=== PATIENT | male | born 1970 | race African-American/Black ===

== ENCOUNTER 2017-04-26 20:31 | Observation (INO) | payer MEDICARE, MEDICAID ==
[2017-04-26 21:29] LABS: Hematocrit 37.6 % (42.0-52.0); Mean Platelet Volume 7.2 fL (7.4-10.4); Red Blood Cell (RBC) Count 3.98 mill/uL (4.70-6.10); White Blood Cell (WBC) Count 6.3 thou/uL (4.8-10.8)
[2017-04-26 21:38] LABS: ALT (SGPT) 17 U/L (8-55); AST (SGOT) 12 U/L (5-34); Alkaline Phosphatase 71 U/L (40-150); Anion Gap 15 mmol/L (10-20); BUN (Urea Nitrogen) 56 mg/dL (8.9-20.6); Bilirubin, Total 0.4 mg/dL (0.2-1.2); Calc. Creatinine Clearance 0 mL/min (70-130); Calcium 9.5 mg/dL (7.8-10.44); Carbon Dioxide 25 mmol/L (22-29); Chloride 106 mmol/L (98-107); Estimated GFR-MDRD 14; Globulin 3.8 g/dL (2.4-3.5); Protein, Total 7.5 g/dL (6.0-8.3)
[2017-04-26 21:42] LABS: Lactic Acid - Sepsis 1.6 mmol/L (0.5-2.2)
[2017-04-26 21:42] LABS: #Eosinphils 0.2 thou/uL (0.0-0.7); #Lymphocytes 1.4 thou/uL (1.20-3.40); #Monocytes 0.5 thou/uL (0.11-0.59); #Neutrophils 4.1 thou/uL (1.40-6.50); %Basophils 0.5 % (0.0-1.0); %Eosinophils 3.9 % (0.0-10.0); %Lymphocytes 22.2 % (21.0-51.0); %Monocytes 7.8 % (0.0-10.0)
[2017-04-26 21:48] LABS: Magnesium 1.7 mg/dL (1.6-2.6)
[2017-04-26] MEDS ORDERED: Ondansetron HCl/PF 4 MG/2 ML Vial ONE (21:53)
--- NOTE | 2017-04-26 22:49 | RAD ---
PORTABLE UPRIGHT FRONTAL CHEST RADIOGRAPH: Date: 04/26/17 COMPARISON: 08/20/16. HISTORY: Nausea and vomiting, chest pain. FINDINGS: Cardiac silhouette is enlarged. Right-sided dialysis catheter present, distal tip overlying region of right atrium. There is mild vascular congestion. No pneumothorax, pleural fluid, focal consolidation , or alveolar edema. IMPRESSION: No focal consolidation or alveolar edema. POS: [facility]
[2017-04-27 00:04] LABS: Bilirubin Negative (Negative); Blood, Urine Trace (Negative); Glucose, Urine (Dipstick) 100 mg/dL (Negative); Ketone, Urine Negative (Negative); Nitrite Negative (Negative); Protein, Urine (Dipstick) 100 mg/dL (Neg-Trace); Urobilinogen 0.2 mg/dL (0.2-1.0)
[2017-04-27 00:06] LABS: Bacteria/HPF None Seen HPF (None Seen); Hyaline Casts/LPF 0-3 HYALINE CAST LPF (0-3 Hyaline); RBC/HPF 0-3 HPF (0-3); Squamous Epithelial None Seen HPF (0-3); WBC/HPF 0-3 HPF (0-3)
[2017-04-27] MEDS ORDERED: Ondansetron ODT 4 MG TAB PO PRN (01:23)
[2017-04-27] MEDS ORDERED: Polyethylene Glycol 3350 17 GM Packet PO PRN (01:23)
[2017-04-27] MEDS ORDERED: Dextrose 5% in Water 1,000 ML IV PRN ×2 (02:07→04:41)
[2017-04-27] MEDS ORDERED: Dextrose 50% Abboject 50 ML SYRINGE SLOW IVP PRN ×2 (02:07→04:41)
[2017-04-27] MEDS ORDERED: HumaLOG 300 UNITS/3 ML VIAL SC PRN (02:07)
[2017-04-27] MEDS ORDERED: Senokot 8.6 MG TAB PO PRN (02:07)
[2017-04-27 02:16] VITALS: BMI 55.5
[2017-04-27] MEDS: hydrALAZINE 20 MG/ML VIAL SLOW IVP PRN ×2 (03:12→11:56)
[2017-04-27 04:12] LABS: Anion Gap 15 mmol/L (10-20); BUN (Urea Nitrogen) 54 mg/dL (8.9-20.6); Calc. Creatinine Clearance 38 mL/min (70-130); Calcium 9.2 mg/dL (7.8-10.44); Carbon Dioxide 22 mmol/L (22-29); Chloride 110 mmol/L (98-107); Estimated GFR-MDRD 14
[2017-04-27 04:52] LABS: Troponin I 0.024 ng/mL (< 0.028)
[2017-04-27 06:20] LABS: #Basophils 0.1 thou/uL (0.0-0.2); #Eosinphils 0.2 thou/uL (0.0-0.7); #Monocytes 0.6 thou/uL (0.11-0.59); #Neutrophils 4.2 thou/uL (1.40-6.50); %Basophils 0.7 % (0.0-1.0); %Eosinophils 2.8 % (0.0-10.0); %Lymphocytes 28.3 % (21.0-51.0); %Monocytes 8.8 % (0.0-10.0); Hematocrit 36.8 % (42.0-52.0); Mean Platelet Volume 7.2 fL (7.4-10.4); Red Blood Cell (RBC) Count 3.85 mill/uL (4.70-6.10); White Blood Cell (WBC) Count 7.1 thou/uL (4.8-10.8)
--- NOTE | 2017-04-27 07:42 | HP-2 ---
DATE OF ADMISSION: 04/27/2017 at midnight CODE STATUS: FULL. PRIMARY CARE PROVIDER: Anam engel. ATTENDING: Dr. Mccann. RESIDENT: Dr. Ainsley Russell. HISTORIAN: Patient. CHIEF COMPLAINT: Nausea and vomiting. HISTORY OF PRESENT ILLNESS: This is a 46-year-old male with a past medical history of diabetes and end-stage renal disease, on hemodialysis Thursday and Thursday, presents with nausea and vomiting today after missing hemodialysis yesterday, and he states he vomited 5-6 times a day. The last time he vomited was at 7:00 p.m. last night. He also endorses some dizziness and some left lower quadrant abdominal pain. Patient states that he was living at a retirement, but recently, a week ago from Thursday, was discharged from the retirement. He states that he usually takes the bus to get his dialysis, but he had trouble getting his larger wheelchair to fit into the bus, and by the time he went and got a smaller one, he missed the bus. He denies chest pain and once again endorses some left lower quadrant abdominal pain. PAST MEDICAL HISTORY: Type 2 diabetes, on insulin; hypertension; hyperlipidemia ; end-stage renal disease, on hemodialysis Tuesdays and Saturdays. Patient's research hydrologist is Dr. Dhillon. PAST SURGICAL HISTORY: Bilateral BKA. ALLERGIES: No known drug allergies. MEDICATIONS: 1. He is on 35 units of Levemir at night. 2. Lipitor 40 mg at bedtime. FAMILY HISTORY: No family history of early MD. SOCIAL HISTORY: Denies tobacco, alcohol, and drug use. REVIEW OF SYSTEMS: General: Denies fevers, chills, weight, appetite, sleep changes. EYES and ENT: Denies vision changes, nasal congestion, rhinorrhea, sore throat. Respiratory: Denies cough, congestion, shortness of breath. Cardiovascular: Denies chest pain, palpitations, or edema. GI: Endorses nausea and vomiting x5. Denies diarrhea or constipation. Endorses left lower quadrant pain. SKIN: Denies rashes or lesions. Musculoskeletal: Denies pain or tenderness. Neurologic: Denies weakness or numbness. Psychiatric: Denies anxiety or depression. PHYSICAL EXAMINATION: VITAL SIGNS: Blood pressure 166/90, pulse 77, respiratory rate 16, T-max 97.7, pulse ox 97% on room air, current weight 142 kilograms. GENERAL: Alert and oriented x4, NAD, well-developed, well-nourished, obese, appropriately interactive. EYES: PERRLA. EOMI. Conjunctivae within normal limits. ENT: Nasal mucosa and oropharynx within normal limits. NECK: Supple. No lymphadenopathy or thyromegaly. CARDIOVASCULAR: Regular rate and rhythm. No murmurs, rubs, or gallops. A 2+ radial pulses. RESPIRATORY: Normal effort. No retractions. Clear to auscultation bilaterally. SKIN: Warm and dry. No cyanosis. ABDOMEN: Soft. Tender to palpation in left lower quadrant. Positive bowel sounds in all 4 quadrants. No masses or distention. EXTREMITIES: No clubbing or edema. MUSCULOSKELETAL: Bilateral lower extremity BKA. Decreased strength in lower body and upper body. NEUROLOGICAL: No focal deficits. Sensation within normal limits. GCS 15. PSYCHIATRIC: Appropriate. LABORATORY DATA: CBC: White count 6.3, hemoglobin 11.8, hematocrit 37.6, platelets 219. CMP: Sodium 142, potassium 4.2, chloride 106, bicarbonate 25, BUN 56, creatinine 5.3, glucose 196. AST, ALT, alkaline phosphatase 12, 17, 71. Calcium, total protein, albumin 9.5, 7.5, 3.7. Total bilirubin 0.4. Magnesium 0.7. Lactic acid 1.6. GFR 14. Troponin 0.020, 0.024, 0.030. EKG, normal sinus rhythm, LAD, unchanged from prior. ASSESSMENT AND PLAN: This is a 46-year-old male with a past medical history of diabetes, type 2, and end-stage renal disease, on hemodialysis Thursday and Thursday, presents with nausea and vomiting x5 since this morning and missed dialysis yesterday, admitted for abdominal pain with a concern for atypical chest pain versus gastroenteritis. 1. Atypical chest pain. The patient is diabetic and this may be an atypical presentation of chest pain. The patient denies classic chest pain-like symptoms , but does endorse abdominal pain. The patient's troponins have been negative and his EKG has been normal sinus rhythm with some left axis deviation. Due to his risk factors, we will place an order for a pharmacological stress test in the morning. We will also trend the patient's troponins. We will repeat an EKG if patient's chest pain returns and consult Cardiology if patient has chest pain, positive troponins, and EKG changes. Cannot rule out gastroenteritis, as this presented quite acutely with nausea and 5 episodes of vomiting, which could be due to a viral gastroenteritis. Also, with this patient's left lower quadrant pain, he stated that he has had a bowel movement in over a day. This could be constipation and we will provide the patient with a bowel regimen and order a KUB. 2. End-stage renal disease, on hemodialysis Thursday and Thursday. We will consult Dr. Dhillon. The patient does not meet criteria at this time for emergent dialysis. We will continue to monitor his BMP for acute changes. DISPOSITION AND LENGTH OF HOSPITAL STAY: 1-2 days. Symptomatic medications will be provided. History and physical exam as well as management discussed with Dr. Mccann. HERLINDA
[2017-04-27] MEDS ORDERED: Aspirin 325 mg Enteric Coated Tablet PO SCH (09:00)
[2017-04-27] MEDS ORDERED: Atorvastatin Calcium 40 MG TAB PO SCH (09:00)
[2017-04-27] MEDS ORDERED: Cyanocobalamin (Vitamin B-12) 1,000 MCG TAB PO SCH (09:00)
[2017-04-27] MEDS ORDERED: Docusate 100 MG CAP PO SCH (09:00)
[2017-04-27] MEDS ORDERED: Enoxaparin Sodium 30 MG/0.3 ML SYRINGE SC SCH (09:00)
--- NOTE | 2017-04-27 10:57 | HP ---
I have reviewed the history and physical of Dr. Ainsley Russell and agree with her assessment and plan. BRIEF HISTORY: Briefly, Mr. Josias Martinez is a 46-year-old black male patient who is on dialysis ever y Thursday and Thursday. He missed dialysis this Thursday and just prior to coming into the ER he dev eloped some nausea, vomiting, and dizziness. He was admitted for further evaluation. PHYSICAL EXAMINATION: VITAL SIGNS: Her blood pressure was 160/90, his pulse rate was 78, respirations 18. He is afebrile. His pulse ox on room air was 97%. GENERAL: He is a pleasant man in no distress. He states he becomes quite dizzy and vertiginous when turning his head to the left side. He has no focal neurological deficits. HEENT: His head is normocephalic with no outward signs of trauma. NECK: Supple. CARDIAC: PMI is in the fifth intercostal space. No gallop or murmur noted. LUNGS: Clear, without rales or wheezes. ABDOMEN: Obese, but flat and soft. NEUROLOGIC: No focal deficits. LABORATORY DATA: CBC: White count 6300, hemoglobin 11.8, hematocrit 37.6. BMP: Sodium is 142, pot assium 4.2, chloride is 106, bicarbonate is 25, BUN is 56, creatinine is 5.3. ASSESSMENT: Probable acute gastritis and mild vertigo. PLAN: Admit. Discuss with Dr. Dhillon whether we need to send the patient for dialysis. Given his sym ptoms of nausea consider stress test, although I doubt this was acute coronary syndrome.
[2017-04-27 11:54] VITALS: BP 184/86; TEMP 98.1
[2017-04-27] MEDS ORDERED: Meclizine HCl 25 MG TAB PO SCH ×2 (14:00)
[2017-04-27] MEDS ORDERED: Metoclopramide HCl 10 MG/2 ML VIAL IVP SCH (14:00)
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
[2017-04-27] MEDS ORDERED: Insulin Detemir 100 UNITS/ML 35 UNITS in Pre-Filled Syringe 1 EACH SC SCH (21:00)
[2017-04-27] MEDS ORDERED: INSULIN GLARGINE 35 UNIT SC SCH (21:00)
--- NOTE | 2017-04-27 22:56 | CON ---
DATE OF CONSULTATION: 04/27/2017 CONSULTING PHYSICIAN: Tim Mccann MD REASON FOR CONSULTATION: End-stage renal disease evaluation and care. REASON FOR ADMISSION: Nausea and vomiting. HISTORY OF PRESENT ILLNESS: A 46-year-old male with history of type 2 diabetes, end-stage re nal disease, hypertension, who came to the hospital with nausea, vomiting, and dizziness. The patien t missed dialysis on Thursday and usually, he gets dialysis on a regular basis. No fevers, chills. No chest pain or palpitation reported. PAST MEDICAL HISTORY: Positive for type 2 diabetes, hypertension, hyperlipidemia, end-stage renal di sease. PAST SURGICAL HISTORY: Bilateral BKA. ALLERGIES: No known drug allergies. HOME MEDICATIONS: Levemir and Lipitor. FAMILY HISTORY: No history of any kidney disease. REVIEW OF SYSTEMS: The following complete review of systems was negative, unless otherwise mentioned in the HPI or below: Constitutional: Weight loss or gain, ability to conduct usual activities. Skin: Rash, itching. Eyes: Double vision, pain. ENT/Mouth: Nose bleeding, neck stiffness, pain, tenderness. Cardiovascular: Palpitations, dyspnea on exertion, orthopnea. Respiratory: Shortness of breath, wheezing, cough, hemoptysis, fever, or night sweats. Gastrointestinal: Poor appetite, abdominal pain, heartburn, nausea, vomiting, constipation, or diarr hea. Genitourinary: Urgency, frequency, dysuria, nocturia. Musculoskeletal: Pain, swelling. Neurologic/Psychiatric: Anxiety, depression. Allergy/Immunologic: Skin rash, bleeding tendency. SOCIAL HISTORY: No smoking, alcohol, or illicit drug abuse. PHYSICAL EXAMINATION: GENERAL: This is a morbidly obese male, in no apparent distress. VITAL SIGNS: Temperature 98.1, pulse 85, respiratory rate 18, blood pressure 184/86. HEENT: Atraumatic, normocephalic. Oral mucosa is moist. NECK: Supple, no masses. CARDIOVASCULAR: S1, S2 heard. Rate and rhythm regular. RESPIRATORY: Clear. GASTROINTESTINAL: Abdomen is soft. MUSCULOSKELETAL: 1+ edema. DERMATOLOGIC: No skin rash. NEUROLOGIC: Alert and awake. PSYCHIATRIC: Mood and affect are normal. LABORATORY DATA: Hemoglobin is 11.7. Potassium is 4.4, BUN is 54, creatinine is 5.1. ASSESSMENT AND PLAN: 1. End-stage renal disease, on hemodialysis. Plan is to have dialysis as tolerated. 2. Hypertension, stable. 3. Anemia. Hemoglobin is stable. 4. Edema, controlled. 5. Plan is to continue on dialysis as tolerated. 7. Morbid obesity.
--- NOTE | 2017-04-28 13:19 | DIS-2 ---
DATE OF ADMISSION: 04/27/2017 DATE OF DISCHARGE: 04/27/2017 RESIDENT: Dr. Ruiz. ADMITTING AND ATTENDING PHYSICIAN: Dr. West. DISCHARGE ATTENDING: Dr. Mccann. CONSULTATIONS: With Dr. Wilson in Nephrology. PROCEDURES PERFORMED: He did undergo a chest x-ray that showed no focal consolidation or alveolar edema. He also had an abdominal x-ray that showed no evidence for small-bowel obstruction. Significant stool was seen throughout the colon. PRIMARY DISCHARGE DIAGNOSES: 1. Vertigo. 2. End-stage renal disease, on hemodialysis. 3. Diabetes mellitus type 2. DISCHARGE MEDICATIONS: 1. Atorvastatin 40 mg p.o. daily. 2. Insulin glargine 35 units subcu at bedtime. 3. Meclizine 25 mg. 4. Zofran 4 mg. DISCONTINUED MEDICATIONS: None. HISTORY OF PRESENT ILLNESS AND HOSPITAL COURSE: This is a 46-year-old male with past medical history of diabetes and end-stage renal disease, on hemodialysis Tuesdays and Saturdays, presents with nausea and vomiting today after missing hemodialysis yesterday. He states he vomited 5-6 times today. The last time he vomited was at 7:00 p.m. last night. He also endorses some dizziness and some left lower quadrant abdominal pain. The patient states he was living at a long-term, but recently a week ago on Thursday, he was discharged from the long-term. He states he finally takes the bus to get to his dialysis, but he had trouble getting his larger wheelchair fit on the bus and by that time, he went and got a smaller one, he missed the bus. He denies chest pain and once again endorses some left lower quadrant abdominal pain. During the hospitalization, Dr. Wilson with Nephrology saw the patient and felt like he would benefit from some early dialysis since he missed his dialysis session on Thursday and so he signed him up for a shortened dialysis session while in the hospital. The patient was also nauseous and vomited during hospitalization. He was given meclizine with improvement of his symptoms and he was given Zofran as needed to prevent any further nausea. The patient has a significant lab values of hepatitis B surface antigen negative. He had a creatinine of 5.19, BUN of 54 and a glucose of 154. A white blood cell count of 7.18, hemoglobin of 11.7 and hematocrit of 36.8, all within stable ranges for him. The patient otherwise had improvement of his symptoms throughout this hospital stay with meclizine and was discharged home so that he can make his dialysis session on Thursday. The patient otherwise had no other complications and was discharged in the appropriate condition. DISCHARGE DISPOSITION: Stable. DISCHARGE INSTRUCTIONS: 1. Location: He will be discharged home under the care of himself and his stepdaughter. 2. Diet: Will be a diabetic diet and a renal diet. 3. Activity: Will be as tolerated with no restrictions. He is status post BKA bilaterally, so mobility is a problem for him. 4. FOLLOWUP: Will be with Dr. Wilson in the coming weeks to follow up with his dialysis sessions and also a [facility] physician in 3 days who is hoping he is hoping to establish care with wish him the best of luck and hope that we can continue him on a healthy course going forward. HERLINDA
== END 2017-04-27 20:58 | disposition home or self-care (01) ==
LOC: ERS 20:31 → 2NO 23:49
PROVIDERS: ADMIT Family Medicine; ATTEND Family Medicine
DX: R42 Dizziness and giddiness (principal); I12.0 Hypertensive chronic kidney disease with stage 5 chronic kidney disease or end stage renal disease; E11.22 Type 2 diabetes mellitus with diabetic chronic kidney disease; N18.6 End stage renal disease; R07.89 Other chest pain; E78.00 Pure hypercholesterolemia, unspecified; Z99.2 Dependence on renal dialysis; Z89.512 Acquired absence of left leg below knee; Z89.511 Acquired absence of right leg below knee; Z79.4 Long term (current) use of insulin; Z79.899 Other long term (current) drug therapy
CPT/HCPCS: 71010; 74000; 80048; 80053; 82553; 82947; 82962 ×2; 83605; 83690; 83735; 84484 ×3; 85025 ×2; 87340; 93005; 94760; 96361; 96372; 96374; 96375; 96376; 99285; G0378; 36415; 36416; 81003; 81015; 90935; G0257; J0360; J1650; J1815; J2405; J2765; Q0162

== ENCOUNTER 2017-06-19 07:37 | Day surgery (SDC) | payer MEDICARE, MEDICAID ==
--- NOTE | 2017-06-15 06:18 | HP ---
HISTORY OF PRESENT ILLNESS: Josias Martinez is a 46-year-old black male mobile with a wheelchair, kunal nassarl below knee amputee has acquired prosthesis and is working with therapy at home to again mobility and use of his prosthesis. He is nonweightbearing. He is morbidly obese. He dialyzes at [facility] two days a week, Thursday and Thursday. On Thursday, he attends dialysis at 1 or 2 p.m. and on Thursday attends dialysis earlier in the day. Attending dialysis later in the day Thursday is difficul t for him as his transportation is by a bus. The patient has a friend with him today, is followed by Dr. Hernandez. The patient had a left Martina fistula placed on 08/30/2016, at that time is at [facility], but currently resides at home. I saw him back in the office on 12/08/2016 to remove h is dialysis catheter. Apparently, his Martina fistula left arm thrombosed and on 04/01/2017, the carlos ent was seen at [facility] and underwent attempted fistulogram, but his Martina fistula form was th rombosed and intervention could not be performed. Apparently, a dialysis catheter right IJ was place d in. The patient last had vein mapping on 02/2016 on his cephalic vein, right 2.3, 2.4, 3.2 mm in d istal humerus 5.8 mm, proximal forearm 1.2 mm, basilic vein was smaller on the right, 1.6, 1.2, 1.1, 1.3 mm, proximal forearm 1.7 mm. On the left at that time cephalic vein, left arm 2.6, 2.5, 4.5 mm a nd distal humerus 5.9, proximal forearm 1.6, left basilic vein slightly better, 2.6, 2.8, 1.8, 1.6 mm . Apparently, the patient was admitted 05/06/2017 for nausea and vomiting because he missed dialysis . He was dialyzed and sent home. Today, it is verified his left forearm the left Martina fistula is thrombosed and plan would be that u nder general anesthesia, he would have a left to right arm primary fistula. Would avoid a block due to his mobility problems and being a bilateral amputee. Therefore, we would avoid regional anesthesi a. Patient has suitable cephalic veins on both arms by 2016 vein mapping, basilic vein is smaller on the right. PAST MEDICAL HISTORY: Type 2 diabetes mellitus, hypertension, hyperlipidemia, end-stage renal diseas e on maintenance dialysis, morbid obesity, and bilateral amputee. PAST SURGICAL HISTORY: Bilateral amputee bilateral amputation and left Martina fistula. ALLERGIES: None. MEDICATIONS: Levemir and Lipitor. REVIEW OF SYSTEMS: Ten point noncontributory. PHYSICAL EXAMINATION: GENERAL: Bilateral amputee. VITAL SIGNS: 66 inches, 107/59, 100, 98.6 degrees. HEENT: Unremarkable. LUNGS: Clear to auscultation. CARDIAC: Regular rate and rhythm without murmur or gallop. ABDOMEN: Obese, soft, nontender. EXTREMITIES: Bilateral below-knee amputation, palpable radial pulses bilaterally, thrombosed Martina fistula forearm. ASSESSMENT AND PLAN: 1. Thrombosed fistula, Martina left forearm. Plan left to right arm primary fistula under general an esthesia. He understands the risks and benefits of procedure and consents. 2. Bilateral amputee. 3. Insulin-dependent diabetes mellitus. 4. Hypertension.
[2017-06-19] MEDS ORDERED: CEFAZOLIN/Water 2 GM/20 ML SYRINGE ONE (08:33)
[2017-06-19 08:53] LABS: #Eosinphils 0.1 thou/uL (0.0-0.7); #Lymphocytes 1.3 thou/uL (1.20-3.40); #Monocytes 0.6 thou/uL (0.11-0.59); #Neutrophils 4.9 thou/uL (1.40-6.50); %Basophils 0.3 % (0.0-1.0); %Eosinophils 1.5 % (0.0-10.0); %Lymphocytes 19.2 % (21.0-51.0); %Monocytes 9.2 % (0.0-10.0); %Neutrophils 69.8 % (42.0-75.0); Hemoglobin 8.3 g/dL (14.0-18.0); Mean Corpuscular HGB CONC 30.5 g/dL (32.0-36.0); Mean Corpuscular Hemoglobin 26.8 pg (27.0-31.0); Mean Corpuscular Volume 87.7 fl (80.0-94.0); Mean Platelet Volume 7.3 fL (7.4-10.4); Platelet Count 302 thou/uL (130-400); RBC Distribution Width 16.6 % (11.5-14.5); Red Blood Cell (RBC) Count 3.09 mill/uL (4.70-6.10)
[2017-06-19 08:58] LABS: Anion Gap 16 mmol/L (10-20); BUN (Urea Nitrogen) 43 mg/dL (8.9-20.6); Calc. Creatinine Clearance 32 mL/min (70-130); Calcium 8.4 mg/dL (7.8-10.44); Carbon Dioxide 27 mmol/L (22-29); Chloride 98 mmol/L (98-107); Estimated GFR-MDRD 13; Glucose 134 mg/dL (70-105); Potassium 3.3 mmol/L (3.5-5.1); Sodium 138 mmol/L (136-145)
[2017-06-19] MEDS ORDERED: Phenylephrine 10 MG/NS 250 ML 250 ML ONE (11:31)
[2017-06-19] MEDS ORDERED: Glycopyrrolate 0.2 MG/ML 5 ML SYRINGE ONE (14:00)
[2017-06-19] MEDS ORDERED: Propofol 200 MG/20 ML VIAL ONE (14:00)
[2017-06-19] MEDS ORDERED: PHENYLEPHRINE-NS 100 MCG/ML 10 ML SYRINGE ONE (14:00)
[2017-06-19] MEDS ORDERED: Heparin 10,000 UNITS/ 10 ML VIAL ONE ×2 (14:00→14:46)
[2017-06-19] MEDS ORDERED: Ondansetron HCl/PF 4 MG/2 ML Vial ONE (14:00)
--- NOTE | 2017-06-19 15:24 | OP ---
PREOPERATIVE DIAGNOSES: End-stage renal disease, morbid obesity, below the knee amputation status, t hrombosed Martina fistula left forearm. POSTOPERATIVE DIAGNOSES: End-stage renal disease, morbid obesity, below the knee amputation status, thrombosed Martina fistula left forearm. PROCEDURE: Left arm primary fistula, perforating branch antecubital vein to the proximal radial cassi ry, outflow cephalic vein only (ligated communicating branch to the basilic vein). Retrograde antecu bital vein preserved, although thrombosed after a short segment. Note, cephalic vein outflow calibra willem to a 4.5 mm coronary dilator and both basilic and cephalic vein were of good caliber due to previ ous arterialization from Martina fistula. SURGEON: Dr. Jenaro Delarosa ANESTHESIA: General. Local 0.5% Marcaine, 30 mL, mixed with 1% Xylocaine with epinephrine 30 mL, 40 mL mixture used. PROCEDURE IN DETAIL: The patient was taken to the operating room where under general anesthesia, lef t upper extremity was prepared with ChloraPrep, draped in routine fashion. Proximal volar forearm in cision was made just below the antecubital fossa and carried down through the skin and subcutaneous t issue and retrograde antecubital vein identified, dissected free along with its bifurcation towards t he antecubital fossa into the basilic and cephalic vein. The initial segment of the cephalic vein se emed to be small and the basilic vein larger. Initially, I have started to make an incision for sosa sposition basilic vein fistula, but then appreciated that this may not be necessary as the cephalic v ein beyond this smaller segment was of excellent caliber. At this point, the antecubital vein was di ssected free, perforating branch dissected free. Branches divided between 4-0 silk ties and clips, m obilized, spatulated over a branch point and interrogated with coronary dilators. The patient was gi jose luis 6000 units of heparin intravenously by Anesthesia. Coronary dilators placed from the perforating branch of the antecubital vein out this cephalic vein outflow from a 2 mm to a 4.5 mm coronary dilat or. Likewise, they passed easily in the basilic vein. At this point, the brachial, ulnar, proximal radial artery distally were clamped with vascular clamps. Longitudinal arteriotomy made sharply in t he proximal radial artery and 2.5 cm anastomosis created between the side proximal radial artery to t he perforating branch antecubital vein with continuous suture of 6-0 Prolene. After completing anast omosis, vascular clamps were released and outflow was interrogated with coronary dilators and indeed there was excellent outflow through the cephalic vein, it distended nicely. The communicating branch of basilic vein ligated with 2-0 silk tie. Branches visualized and the distal cephalic vein were cl ipped to prioritize blood flow in the cephalic vein. There was excellent Doppler signal in the cepha lic vein outflow. Good hemostasis noted. The patient was given 25 mg of protamine intravenously by Anesthesia. Local anesthetic infiltrated into skin and subcutaneous tissue. Subcutaneous tissues ap proximated with 3-0 Monocryl, skin with subdermal 4-0 Monocryl and DermaGlue applied. The patient to lerated the procedure well.
== END 2017-06-19 15:27 | disposition home or self-care (01) ==
LOC: SDC 07:37
PROVIDERS: ATTEND Specialist
PROC: 031C0ZF Bypass Left Radial Artery to Lower Arm Vein, Open Approach (ICD-10-PCS; principal; 2017-06-19)
DX: T82.868A Thrombosis due to vascular prosthetic devices, implants and grafts, initial encounter (principal); I12.0 Hypertensive chronic kidney disease with stage 5 chronic kidney disease or end stage renal disease; E11.22 Type 2 diabetes mellitus with diabetic chronic kidney disease; N18.6 End stage renal disease; E78.5 Hyperlipidemia, unspecified; E66.01 Morbid (severe) obesity due to excess calories; Z79.4 Long term (current) use of insulin; Z79.899 Other long term (current) drug therapy; Z89.512 Acquired absence of left leg below knee; Z89.511 Acquired absence of right leg below knee; Z99.2 Dependence on renal dialysis; Z99.3 Dependence on wheelchair; Z98.890 Other specified postprocedural states
CPT/HCPCS: 36416; 80048; 85025; J0131; J1644; J2405; J2704

== ENCOUNTER 2017-06-25 07:47 | Day surgery (SDC) | payer MEDICARE, MEDICAID ==
[2017-06-24 12:51] VITALS: BMI 42.3
[~2017-06-25 07:47] MED LIST: Cyclopentolate 1% Opth Drop 2 ML BOT FS SCH; Fluorouracil 100 MG, EPINEPHrine 0.3 MG, Dextrose 50% 3 ML in Ophthalmic Irrigation Sol... IVPB SCH; Phenylephrine 2.5% Ophth Soln 5 ML BOT FS SCH
[2017-06-25] MEDS ORDERED: Cyclopentolate 1% Opth Drop 2 ML BOT ONE (07:56)
[2017-06-25] MEDS ORDERED: Phenylephrine 2.5% Ophth Soln 5 ML BOT ONE (07:56)
[2017-06-25] MEDS ORDERED: Midazolam HCl 2 mg/2 ml Vial ONE (09:02)
[2017-06-25] MEDS ORDERED: Fentanyl 100 MCG/2 ML VIAL ONE (09:02)
[2017-06-25] MEDS ORDERED: Diprivan 20 ML ONE (09:02)
--- NOTE | 2017-06-25 10:41 | OP ---
DATE OF PROCEDURE: 06/25/2017 PREOPERATIVE DIAGNOSIS: Vitreous opacification, silicone oil fill left eyes. POSTOPERATIVE DIAGNOSIS: Vitreous opacification, silicone oil fill left eyes. PROCEDURE: Silicone oil removal and vitrectomy of left eye. SURGEON: Arnoldo Moralez M.D. ANESTHESIA: Local with monitored anesthesia care. COMPLICATIONS: None. PROCEDURE IN DETAIL: The patient was identified in the preoperative holding area. Appropriate infor med consent for the planned surgical procedure on the left eye had been obtained. The patient was tr ansported to the operative suite where appropriate cardiopulmonary monitoring was established. Local anesthesia was obtained using retrobulbar and modified Van Lint lid block using 50/50 mixture of 4% lidocaine and 0.75% bupivacaine. The patient was prepped and draped in the usual sterile manner for ophthalmic surgery on the left eye. Lid speculum was placed in the left eye. The 25-gauge trocars w ere placed in conjunctiva and sclera supratemporally, inferotemporally, and supranasally. Infusion l ine was placed inferotemporally. Light pipe and vitreous cutter were inserted into the eye. Core of vitrectomy was performed. Silicone oil was removed. Posterior pole was inspected. Retina appeared flat and laser was present in the periphery 360 degrees. Trocars were removed and superior scleroto my was sutured closed. Retrobulbar Kenalog and subconjunctival Ancef were placed. Atropine and anti biotic ointment were placed, and the eye was patched and shielded. The patient was taken to postoper ative recovery unit in good condition having suffered no immediate perioperative complications. DISCHARGE INSTRUCTIONS: Patient was instructed to keep patch and shield on, avoid lifting or bending , and follow up in the morning with Dr. Moralez.
[2017-06-25] MEDS ORDERED: Lidocaine 1% PF 5 ML VIAL ONE (12:05)
[2017-06-25] MEDS ORDERED: Propofol 200 MG/20 ML VIAL ONE (12:05)
== END 2017-06-25 10:35 | disposition home or self-care (01) ==
LOC: SDC 07:47
PROVIDERS: ATTEND Ophthalmology Retina Specialist
PROC: 08T53ZZ Resection of Left Vitreous, Percutaneous Approach (ICD-10-PCS; principal; 2017-06-25)
DX: H43.392 Other vitreous opacities, left eye (principal); T85.398A Other mechanical complication of other ocular prosthetic devices, implants and grafts, initial encounter; E66.01 Morbid (severe) obesity due to excess calories; E11.22 Type 2 diabetes mellitus with diabetic chronic kidney disease; I12.0 Hypertensive chronic kidney disease with stage 5 chronic kidney disease or end stage renal disease; N18.6 End stage renal disease; E78.5 Hyperlipidemia, unspecified; Z68.41 Body mass index [BMI] 40.0-44.9, adult; Z99.2 Dependence on renal dialysis; Z79.4 Long term (current) use of insulin; Z79.899 Other long term (current) drug therapy; Z90.49 Acquired absence of other specified parts of digestive tract; Z89.512 Acquired absence of left leg below knee; Z89.511 Acquired absence of right leg below knee; Z98.890 Other specified postprocedural states
CPT/HCPCS: 36416; J0171; J2250; J2704; J3010; J9190

== ENCOUNTER 2017-07-13 12:04 | Inpatient (IN) | payer MEDICARE, MEDICAID ==
[2017-07-13] MEDS ORDERED: Ondansetron ODT 4 MG TAB ONE (12:18)
[2017-07-13] MEDS ORDERED: Acetaminophen 500 MG TAB ONE (13:14)
[2017-07-13 13:29] LABS: Hemoglobin 9.1 g/dL (14.0-18.0); Mean Corpuscular HGB CONC 30.4 g/dL (32.0-36.0); Mean Corpuscular Hemoglobin 26.3 pg (27.0-31.0); Mean Corpuscular Volume 86.3 fl (80.0-94.0); Platelet Count 143 thou/uL (130-400); RBC Distribution Width 17.9 % (11.5-14.5); Red Blood Cell (RBC) Count 3.46 mill/uL (4.70-6.10); White Blood Cell (WBC) Count 25.9 thou/uL (4.8-10.8)
--- NOTE | 2017-07-13 13:31 | RAD ---
PORTABLE CHEST ONE VIEW: 07/13/2017 1:08 p.m. HISTORY: Fever. Generalized weakness. Cough. COMPARISON: 04/26/2017 FINDINGS: The heart size is borderline. A right-sided dialysis catheter remains in place. The lungs are well expanded without focal areas of consolidation, pneumothoraces, or pleural effusions. IMPRESSION: No acute process. POS: [facility]
[2017-07-13 13:45] LABS: Anisocytosis SLIGHT = 6-15 cells (100X) (0-5/hpf); Band 24 % (5-11); Hypochromia SLIGHT = 6-15 cells (100X) (0-5/hpf); Lymphocytes 3 % (21-51); MDiff Complete? YES; Monocytes 2 % (0-10); Neutrophil 69 % (42-75); Ovalocytes SLIGHT = 2-5 cells (100X) (0-1/hpf); PLT Morphology Comment Appears Adequate; Polychromasia SLIGHT = 2-3 cells (100X) (0-2/hpf); Reactive Lymphocytes 2 % (0-10); Target Cells SLIGHT = 2-5 cells (100X) (0-1/hpf)
[2017-07-13 13:51] LABS: ALT (SGPT) Less than 7 U/L (8-55); AST (SGOT) 10 U/L (5-34); Albumin 3.2 g/dL (3.5-5.0); Alkaline Phosphatase 60 U/L (40-150); Anion Gap 15 mmol/L (10-20); BUN (Urea Nitrogen) 36 mg/dL (8.9-20.6); Calc. Creatinine Clearance 0 mL/min (70-130); Calcium 8.6 mg/dL (7.8-10.44); Carbon Dioxide 24 mmol/L (22-29); Chloride 99 mmol/L (98-107); Estimated GFR-MDRD 12; Globulin 3.6 g/dL (2.4-3.5); Glucose 211 mg/dL (70-105); Lipase 24 U/L (8-78); Potassium 3.1 mmol/L (3.5-5.1); Protein, Total 6.8 g/dL (6.0-8.3); Sodium 135 mmol/L (136-145)
[2017-07-13] MEDS ORDERED: Piperacillin/Tazobactam 3.375 GM, Admixture Fee 1 EACH in Sodium Chloride 0.9% 100 ML IVPB SCH (14:30)
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
[2017-07-13 17:43] LABS: Lactic Acid 2.1 mmol/L (0.5-2.2)
--- NOTE | 2017-07-13 20:14 | CT ---
CT HEAD NONCONTRAST: History: Fall. Head injury. FINDINGS: There is no evidence of acute intracranial hemorrhage or infarct. Ventricles appear normal in size, s hape and position. There is no mass effect or shift of midline structures. Visualized paranasal sinus es remain well aerated. Large area of edema and probable scalp hematoma overlies the posterior calvar ium. IMPRESSION: No acute intracranial abnormalities are demonstrated. POS: [facility]
[2017-07-13] MEDS ORDERED: Ondansetron HCl/PF 4 MG/2 ML Vial IVP PRN (20:36)
[2017-07-13] MEDS ORDERED: Ondansetron ODT 4 MG TAB SL PRN (20:36)
[2017-07-13] MEDS ORDERED: Acetaminophen 325 MG TAB PO PRN (20:36)
[2017-07-13] MEDS ORDERED: Ondansetron ODT 4 MG TAB PO PRN (20:55)
[2017-07-13] MEDS ORDERED: Dextrose 50% Abboject 50 ML SYRINGE SLOW IVP PRN (20:55)
[2017-07-13] MEDS ORDERED: Dextrose 5% in Water 1,000 ML IV PRN (20:55)
[2017-07-13] MEDS ORDERED: Meclizine HCl 12.5 MG TAB PO PRN (20:55)
[2017-07-13] MEDS: Insulin Detemir 100 UNITS/ML 35 UNITS in Pre-Filled Syringe 1 EACH SC SCH (21:22)
[2017-07-13] MEDS: Heparin 5,000 UNITS/ML VIAL SC SCH (21:23)
[2017-07-14] MEDS: Piperacillin/Tazobactam 2.25 GM in Sodium Chloride 0.9% 100 ML IVPB SCH ×2 (02:54→16:33)
[2017-07-14] MEDS ORDERED: Vancomycin HCl 1 GM in Premix Bag 1 BAG IVPB SCH (03:30)
[2017-07-14] MEDS ORDERED: Vancomycin HCl 1.25 GM in Sodium Chloride 0.9% 250 ML 250 ML IVPB SCH (03:30)
[2017-07-14] MEDS ORDERED: Vancomycin HCl 500 MG in Sodium Chloride 0.9% 100 ML IVPB SCH (03:30)
[2017-07-14] MEDS ORDERED: HOLD VANCOMYCIN FOR LEVEL >20 FS SCH (03:30)
[2017-07-14] MEDS ORDERED: Vancomycin HCl 750 MG in Sodium Chloride 0.9% 250 ML 250 ML IVPB SCH (03:30)
[2017-07-14 04:08] LABS: #Basophils 0.1 thou/uL (0.0-0.2); #Eosinphils 0.2 thou/uL (0.0-0.7); #Lymphocytes 1.6 thou/uL (1.20-3.40); #Monocytes 1.1 thou/uL (0.11-0.59); #Neutrophils 6.7 thou/uL (1.40-6.50); %Eosinophils 2.1 % (0.0-10.0); %Lymphocytes 16.9 % (21.0-51.0); %Monocytes 10.8 % (0.0-10.0); %Neutrophils 69.2 % (42.0-75.0); Hemoglobin 8.5 g/dL (14.0-18.0); Mean Corpuscular HGB CONC 30.5 g/dL (32.0-36.0); Mean Corpuscular Hemoglobin 26.4 pg (27.0-31.0); Mean Corpuscular Volume 86.4 fl (80.0-94.0); Mean Platelet Volume 10.1 fL (7.4-10.4); Platelet Count 115 thou/uL (130-400); RBC Distribution Width 17.8 % (11.5-14.5); Red Blood Cell (RBC) Count 3.23 mill/uL (4.70-6.10); White Blood Cell (WBC) Count 9.7 thou/uL (4.8-10.8)
[2017-07-14 04:23] LABS: Anion Gap 17 mmol/L (10-20); BUN (Urea Nitrogen) 40 mg/dL (8.9-20.6); Calc. Creatinine Clearance 28 mL/min (70-130); Calcium 7.8 mg/dL (7.8-10.44); Carbon Dioxide 21 mmol/L (22-29); Chloride 105 mmol/L (98-107); Estimated GFR-MDRD 12; Glucose 141 mg/dL (70-105); Potassium 3.6 mmol/L (3.5-5.1); Sodium 139 mmol/L (136-145)
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
[2017-07-14] MEDS: Atorvastatin Calcium 40 MG TAB PO SCH (08:06)
[2017-07-14] MEDS: Gabapentin 300 MG CAP PO SCH (08:06)
[2017-07-14] MEDS: Heparin 5,000 UNITS/ML VIAL SC SCH ×3 (08:06→22:48)
--- NOTE | 2017-07-14 08:39 | PDOC.FM ---
- Subjective Subjective: Patient doing better this AM. He continues to have a cough that he reports is worse when he lies down. It is a dry cough. He reports some persistent dizziness mostly when moving. Denies any further N/V. He denies loose stool, SOB , Chest pain, lightheadedness, fever, chills. He does have some abdominal pain on the left side. He denies any headache or pain from his fall. - Objective MAR Reviewed: Yes Vital Signs & Weight: Vital Signs (12 hours) Temp Pulse Resp BP Pulse Ox 07/14/17 08:00 98.4 F 91 20 96 07/14/17 04:00 98.4 F 91 20 125/58 L 96 07/14/17 00:00 97.9 F 91 20 94/55 L 99 07/13/17 21:30 98.1 F 95 18 98 Weight Weight 135.806 kg I&O: 07/13/17 07/14/17 07/15/17 06:59 06:59 06:59 Intake Total 920 300 Output Total 110 150 Balance 810 150 Result Diagrams: 07/14/17 03:24 07/14/17 03:24 <Paradise Guerra - Last Filed: 07/14/17 08:38> - Objective Vital Signs & Weight: Vital Signs (12 hours) Temp Pulse Resp BP Pulse Ox 07/14/17 08:00 98.4 F 91 20 96 07/14/17 07:20 98.4 F 95 22 H 116/68 99 07/14/17 04:00 98.4 F 91 20 125/58 L 96 07/14/17 00:00 97.9 F 91 20 94/55 L 99 Weight Admit Weight 135.806 kg Weight 135.806 kg I&O: 07/13/17 07/14/17 07/15/17 06:59 06:59 06:59 Intake Total 920 300 Output Total 110 150 Balance 810 150 Result Diagrams: 07/14/17 03:24 07/14/17 03:24 <Mayco Patel - Last Filed: 07/14/17 11:06> - Objective Vital Signs & Weight: Vital Signs (12 hours) Temp Pulse Pulse Pulse Resp BP BP 07/14/17 12:00 100.7 F H 121 H 22 H 07/14/17 10:34 119 H 122 H 152/70 H 147/73 H 07/14/17 08:29 120 H 197/81 H 07/14/17 08:00 98.4 F 91 20 07/14/17 07:20 98.4 F 95 22 H 07/14/17 04:00 98.4 F 91 20 BP Pulse Ox Pulse Ox Pulse Ox 07/14/17 12:00 147/73 H 98 07/14/17 10:34 95 96 07/14/17 08:29 93 L 07/14/17 08:00 96 07/14/17 07:20 116/68 99 07/14/17 04:00 125/58 L 96 Weight Admit Weight 135.806 kg Weight 135.806 kg I&O: 07/13/17 07/14/17 07/15/17 06:59 06:59 06:59 Intake Total 920 600 Output Total 110 250 Balance 810 350 Result Diagrams: 07/14/17 03:24 07/14/17 03:24 <Laurie Gong - Last Filed: 07/14/17 14:46> Phys Exam - Physical Examination Constitutional: NAD HEENT: PERRLA, moist MMs, oral pharynx no lesions EOMI, no nystagmus Respiratory: no wheezing, no rales, no rhonchi, clear to auscultation bilateral Cardiovascular: RRR, no significant murmur, no rub Gastrointestinal: soft, non-tender, no distention, positive bowel sounds Musculoskeletal: no edema, pulses present bilateral BKA Neurological: non-focal, moves all 4 limbs Psychiatric: normal affect, A&O x 3 Skin: no rash, normal turgor, cap refill <2 seconds Deviation from normal: No skin breakdown <Paradise Guerra - Last Filed: 07/14/17 08:38> Dx/Plan (1) Severe sepsis Code(s): A41.9 - SEPSIS, UNSPECIFIED ORGANISM; R65.20 - SEVERE SEPSIS WITHOUT SEPTIC SHOCK Status: Acute (2) Status post fall Code(s): Z91.81 - HISTORY OF FALLING Status: Acute (3) ESRD (end stage renal disease) Code(s): N18.6 - END STAGE RENAL DISEASE Status: Chronic (4) Diabetes mellitus type 2 in obese Code(s): E11.69 - TYPE 2 DIABETES MELLITUS WITH OTHER SPECIFIED COMPLICATION; E66.9 - OBESITY, UNSPECIFIED Status: Acute (5) Hyperlipidemia Code(s): E78.5 - HYPERLIPIDEMIA, UNSPECIFIED Status: Chronic QualifierTitle: Hyperlipidemia type: unspecified Qualified Code(s): E78.5 - Hyperlipidemia, unspecified (6) Hypertension Code(s): I10 - ESSENTIAL (PRIMARY) HYPERTENSION Status: Chronic QualifierTitle: Hypertension type: essential hypertension Qualified Code( s): I10 - Essential (primary) hypertension (7) Morbid obesity Code(s): E66.01 - MORBID (SEVERE) OBESITY DUE TO EXCESS CALORIES Status: Chronic (8) BRANDON (obstructive sleep apnea) Code(s): G47.33 - OBSTRUCTIVE SLEEP APNEA (ADULT) (PEDIATRIC) Status: Chronic (9) Peripheral 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 mellitus Code(s): E11.43 - TYPE 2 DIABETES W DIABETIC AUTONOMIC (POLY)NEUROPATHY Status : Chronic QualifierTitle: Diabetes mellitus type: type 2 Qualified Code(s): E11.43 - Type 2 diabetes mellitus with diabetic autonomic (poly)neuropathy (10) Peripheral vascular disease Code(s): I73.9 - PERIPHERAL VASCULAR DISEASE, UNSPECIFIED Status: Chronic (11) Acid reflux Code(s): K21.9 - GASTRO-ESOPHAGEAL REFLUX DISEASE WITHOUT ESOPHAGITIS Status: Acute QualifierTitle: Esophagitis presence: esophagitis presence not specified Qualified Code(s): K21.9 - Gastro-esophageal reflux disease without esophagitis - Plan Plan: 1. Severe Sepsis Source unknown at this time. WBC 25.9 with 24% bands has downtrended this AM to 9.7. Lactate has improved from 2.8 to 2.1. The patient became hypotensive in the ED, but responded to 3L NS bolus. His BP has remained stable since this. -Vanc day 2, Zosyn day 2 -Blood cultures -Urinalysis, Urine cultures -Chest x-ray showed no signs of infection, but with the patient's cough if no other source is revealed could consider repeating CXR now that patient has received adequate fluid resuscitation -Tylenol prn fevers 2. s/p Fall The patient hit his head after his fall on 07/13. -CT head revealed a possible scalp hematoma, but no intracranial abnormality -Monitor for neuro changes 3. Vertigo This is likely 2/2 BPPV, but will r/o subacute cerebellar infarct with CT head. The patient has associated N/V. -Meclizine -Zofran 4. ESRD on HD The patient sees Dr. Dhillon with nephrology and receives Dialysis on . He did not go to dialysis on 07/13 due to his dizziness and fall. -Dr. Dhillon has been consulted, appreciate recs -Will monitor for signs of fluid overload with giving patient fluids for sepsis 5. DMII -Continue home levemir -SSI -Accuchecks ACHS -CC diet 6. HTN Patient currently hypotensive -Hold home BP medications at this time and monitor 7. HLD -continue home meds 8. PVD s/p Bilateral BKA Patient is wheelchair bound. 9. BRANDON Patient is not on CPAP and reports never being started on CPAP. -Will monitor O2 sats, especially at night 10. Acid Reflux -Continue home protonix. The acid reflux could be contributing to the patient's cough as the protonix was just recently started. <Paradise Guerra - Last Filed: 07/14/17 08:38> (1) Severe sepsis Code(s): A41.9 - SEPSIS, UNSPECIFIED ORGANISM; R65.20 - SEVERE SEPSIS WITHOUT SEPTIC SHOCK Status: Acute (2) Status post fall Code(s): Z91.81 - HISTORY OF FALLING Status: Acute (3) ESRD (end stage renal disease) Code(s): N18.6 - END STAGE RENAL DISEASE Status: Chronic (4) Diabetes mellitus type 2 in obese Code(s): E11.69 - TYPE 2 DIABETES MELLITUS WITH OTHER SPECIFIED COMPLICATION; E66.9 - OBESITY, UNSPECIFIED Status: Acute (5) Hyperlipidemia Code(s): E78.5 - HYPERLIPIDEMIA, UNSPECIFIED Status: Chronic QualifierTitle: Hyperlipidemia type: unspecified Qualified Code(s): E78.5 - Hyperlipidemia, unspecified (6) Hypertension Code(s): I10 - ESSENTIAL (PRIMARY) HYPERTENSION Status: Chronic QualifierTitle: Hypertension type: essential hypertension Qualified Code( s): I10 - Essential (primary) hypertension (7) Morbid obesity Code(s): E66.01 - MORBID (SEVERE) OBESITY DUE TO EXCESS CALORIES Status: Chronic (8) BRANDON (obstructive sleep apnea) Code(s): G47.33 - OBSTRUCTIVE SLEEP APNEA (ADULT) (PEDIATRIC) Status: Chronic (9) Peripheral 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 mellitus Code(s): E11.43 - TYPE 2 DIABETES W DIABETIC AUTONOMIC (POLY)NEUROPATHY Status : Chronic QualifierTitle: Diabetes mellitus type: type 2 Qualified Code(s): E11.43 - Type 2 diabetes mellitus with diabetic autonomic (poly)neuropathy (10) Peripheral vascular disease Code(s): I73.9 - PERIPHERAL VASCULAR DISEASE, UNSPECIFIED Status: Chronic (11) Acid reflux Code(s): K21.9 - GASTRO-ESOPHAGEAL REFLUX DISEASE WITHOUT ESOPHAGITIS Status: Acute QualifierTitle: Esophagitis presence: esophagitis presence not specified Qualified Code(s): K21.9 - Gastro-esophageal reflux disease without esophagitis - Plan Plan: I personally evaluated patient and discussed the case with Dr. Guerra. I agree with her exam, assessment, and plan with the exceptions as listed below. 1) Severe sepsis without obvious source - Continue IV antibiotics. Cultures pending. Suspect port as a possible source but will reevaluate pending cultures. 2) Closed head injury - CT negative 3) ESRD on dialysis - Dr. Dhillon following <Mayco Patel - Last Filed: 07/14/17 11:06> Attending Addendum - Attending Addendum Date/Time: 07/14/17 1094 I personally evaluated the patient and discussed the management with Dr. Guerra on 07/14/17. I agree with the History, Examination, Assessment and Plan documented above with any addition or exceptions noted below. Patient continues to have fever and symptoms of infection despite identifiable source. CRP is significantly elevated, procalcitonin is pending. A culture was drawn from his port, results are pending. C/o abd pain today, will check prostate exam and thorough back exam. If everything is negative tomorrow, will consult Dr. Brower and consider endocarditis workup. <Laurie Gong - Last Filed: 07/14/17 14:46>
--- NOTE | 2017-07-14 09:46 | PRG ---
DATE OF SERVICE: 07/14/2017 SUBJECTIVE: This is a 46-year-old gentleman being seen for end-stage renal disease. The patient den ies any nausea, vomiting or chest pain. PHYSICAL EXAMINATION: GENERAL: Patient is awake, alert. VITAL SIGNS: Afebrile, pulse 75, breathing at 16, blood pressure 116/68. HEAD/NECK: Normocephalic. Atraumatic. EYES: EOMI. No deformity. EARS: Clear. No ulcers. NOSE: Intact. No lesions. MOUTH: Clear. No discharge. THROAT: Clear. No exudate. LUNGS: Clear. No crackles. CARDIAC: S1, S2. No rub. ABDOMEN: Benign. BS+. GENITALIA/RECTUM: Choe absent. BACK/EXTREMITIES: Edema 0+ Ulcer- NEUROLOGICAL: Alert and motor intact. SKIN: Rash- Bruise- LYMPHATICS: Edema- Ulcer- LABORATORY DATA: Show hemoglobin 8.5, creatinine 6.3. ASSESSMENT AND RECOMMENDATIONS: 1. Stage 6 chronic kidney disease, plan dialysis. 2. Hypokalemia, stable. 3. Anemia, stable. 4. Medications based on glomerular filtration rate are appropriate. 5. Sepsis management per primary team.
[2017-07-14] MEDS ORDERED: ISOVUE-370 76%-LOCM 1 ML ONE (12:49)
[2017-07-14] MEDS ORDERED: Sodium Chloride 0.9% 500 ML IV SCH (17:00)
--- NOTE | 2017-07-14 17:18 | CT ---
CT ABDOMEN AND PELVIS WITH IV AND ORAL CONTRAST: HISTORY: Sepsis of unknown source, abdominal pain, nausea and vomiting. FINDINGS: Comparison is made with the exam of 05/22/16 and 12/31/12. Lung bases are unremarkable. No free air or free fluid is seen in the abdomen or pelvis. Lymphadeno tanvi in the abdomen and pelvis and right groin are stable. The liver, spleen, pancreas, and adrenal glands are unremarkable. The patient is post cholecystectomy. There is perinephric inflammatory change with mild interval worsening since 2017. No renal mass is i dentified. There are vascular calcifications without evidence of aneurysmal dilatation of the abdomi nal aorta. The small bowel loops are not abnormally dilated. A normal-appearing appendix is seen. A small fat- containing umbilical hernia is noted. No abnormally loculated fluid collection is noted to suggest a bscess formation. There are degenerative changes in the spine. IMPRESSION: No evidence of abscess formation in the abdomen or pelvis. Perinephric inflammatory changes. Correl ate with urinalysis to evaluate for urinary tract infection. POS: OFF
[2017-07-14] MEDS ORDERED: Lidocaine 1% (PF) 30 ML VIAL ONE (18:35)
[2017-07-14 18:48] LABS: Vancomycin, Trough 16.3 ug/mL
[2017-07-14] MEDS: Insulin Detemir 100 UNITS/ML 35 UNITS in Pre-Filled Syringe 1 EACH SC SCH (22:49)
--- NOTE | 2017-07-15 01:03 | OP ---
PREOPERATIVE DIAGNOSES: Bacteremia, right internal jugular cuffed tunnel dialysis catheter and matur ing left upper arm fistula. POSTOPERATIVE DIAGNOSES: Bacteremia, right internal jugular cuffed tunnel dialysis catheter and matu ring left upper arm fistula. PROCEDURE PERFORMED: Removal of right internal jugular cuffed tunnel dialysis catheter. ANESTHESIA: None. SURGEON: Dr. Delarosa. DESCRIPTION OF PROCEDURE: At the patient's bedside, the catheter exit site was prepared with alcohol . Sutures removed. Gentle traction on the catheter, allow the catheter to be freed without dissecti on or local anesthetic. Cuff removed. The patient will continue dialysis completed and the catheter will be removed tonight to remove his bacteremic source. We will ask the dialysis technicians to access his left arm fistula, hopefully avoiding another chitra ter.
[2017-07-15] MEDS: Piperacillin/Tazobactam 2.25 GM in Sodium Chloride 0.9% 100 ML IVPB SCH (03:20)
[2017-07-15 05:09] LABS: #Eosinphils 0.3 thou/uL (0.0-0.7); #Lymphocytes 1.7 thou/uL (1.20-3.40); #Monocytes 1.2 thou/uL (0.11-0.59); #Neutrophils 13.8 thou/uL (1.40-6.50); %Basophils 0.2 % (0.0-1.0); %Eosinophils 1.7 % (0.0-10.0); %Monocytes 6.8 % (0.0-10.0); %Neutrophils 81.4 % (42.0-75.0); Mean Corpuscular HGB CONC 30.5 g/dL (32.0-36.0); Mean Corpuscular Hemoglobin 26.6 pg (27.0-31.0); Mean Corpuscular Volume 87.1 fl (80.0-94.0); Mean Platelet Volume 9.1 fL (7.4-10.4); Platelet Count 109 thou/uL (130-400); RBC Distribution Width 17.9 % (11.5-14.5); White Blood Cell (WBC) Count 16.9 thou/uL (4.8-10.8)
[2017-07-15 05:11] LABS: Anion Gap 12 mmol/L (10-20); BUN (Urea Nitrogen) 20 mg/dL (8.9-20.6); Calc. Creatinine Clearance 44 mL/min (70-130); Carbon Dioxide 29 mmol/L (22-29); Chloride 100 mmol/L (98-107); Estimated GFR-MDRD 20; Glucose 95 mg/dL (70-105); Potassium 3.8 mmol/L (3.5-5.1); Sodium 137 mmol/L (136-145)
--- NOTE | 2017-07-15 05:57 | CON ---
DATE OF CONSULTATION: 07/14/2017 HISTORY OF PRESENT ILLNESS: Josias Martinez is a 46-year-old black male who has end-stage renal disease , bilateral amputee, admitted for bacteremia. He has a right IJ cuffed tunneled dialysis catheter pl [place] and recently changed this at [facility] about a few weeks ago. On 06/19/2017, I placed a l eft-arm primary fistula. He had a Martina fistula that thrombosed. I converted into a more proximal forearm fistula outflow cephalic vein only. Cephalic vein had been previously arterialized, already it was distended. Patient is obese. Outflow of the cephalic vein fistula was calibrated to a 4.5 mm coronary artery dilator in communication of the basilic vein clipped. Patient was admitted to this hospitalization with malaise, hypotension and has been here for 24 hours. Cultures revealed Gram-pos itive amaris x2 from yesterday. I was asked to see him regarding dialysis catheter. He is on dialysis. At the bedside, I placed gentle traction on his dialysis catheter and removed the cuff external to th e skin without problems. He will continue dialysis tonight. We will have the nurses removed the cat heter tonight, as this is definitely the source of his bacteremia. We would then try to access his l eft arm for dialysis access and hopefully, we can avoid further catheter placement. He does have a g ood thrill and bruit in his left upper arm fistula and I believe that the dialysis nurses can access it and hopefully, we will not need another catheter. ALLERGIES: None. TOBACCO: None. ALCOHOL: None. PAST MEDICAL HISTORY: Type 2 diabetes mellitus, hypertension, end-stage renal disease on maintenance dialysis, morbid obesity, bilateral amputee. PAST SURGICAL HISTORY: Bilateral amputations and left Martina fistula, which has thrombosed. New formerly [facility] reestablished earlier this month they described. MEDICATIONS: Tylenol, atorvastatin, gabapentin 300 daily, vancomycin, sliding-scale insulin, Zosyn. HOME MEDICATIONS: Protonix, meclizine, gabapentin, Demadex, insulin. PHYSICAL EXAMINATION: VITAL SIGNS: Temperature 99.8 degrees, 100.7 earlier, 102 heart rate, 24, 117/55. LUNGS: Clear to auscultation. CARDIAC: Regular rate and rhythm without murmur or gallop. ABDOMEN: Soft, obese. EXTREMITIES: Bilateral amputee left upper arm fistula, well-healed wound. Good thrill and bruit, up per arm fistula. ASSESSMENT AND PLAN: Bacteremia secondary to dialysis catheter, remove the dialysis catheter tonight . I have already freed the cuff, nurses can remove it after he completed dialysis, this should resol ve his bacteremia, antibiotics per Medical. Vancomycin can be given with dialysis, sliding scale. W ill ask dialysis techs make an effort to access his left upper arm fistula, hopefully to avoid anothe r catheter.
--- NOTE | 2017-07-15 06:21 | CON ---
DATE OF CONSULTATION: 07/14/2017 HISTORY OF PRESENT ILLNESS: Josias Martinez is a 46-year-old male. He is a double amputee. He got up feeling okay and then decided to go back to bed and says after he got back in bed, he start ed feeling different. Tried to get into his wheelchair and could not make it into his wheelchair. Subsequently, ended up in the emergency room, his complaints in the ER are mainly dizziness and cough . His cough has been present for several months, though it is aggravated by being in the supine posi tion. PAST MEDICAL HISTORY: 1. Remarkable for end-stage renal disease. 2. Peripheral vascular disease with bilateral quxpp-fwn-fome amputations. 3. Reported history of dialysis noncompliance. 4. History of obesity. 5. History of reflux disease. 6. History of tunneled catheter placement. 7. History of laparotomy in the past and AV fistula. FAMILY HISTORY: Negative for lung disease at an early age. SOCIAL HISTORY: He is nonsmoker, nondrinker. He denies drug use. REVIEW OF SYSTEMS: Twelve-point review of systems otherwise negative, actually says he feels much be tter than when he presented. MEDICATIONS: Have been reviewed. He is currently on atorvastatin, gabapentin, subcutaneous heparin, insulin, meclizine, Protonix, Zosy n, and vancomycin. PHYSICAL EXAMINATION: GENERAL: He is in no distress. VITAL SIGNS: His temperature maximum is 100.7 at noon, his heart rate is 102, respiratory rate is 24 , oximetry is 97, blood pressure 117/55. His intake and output is positive 810 mL. HEENT: His pupils are equal. Sclerae is anicteric. Extraocular movements are full. NECK: Supple, no lymphadenopathy. LUNGS: Clear. CARDIOVASCULAR: Regular rhythm. S1 and S2 are normal. ABDOMEN: Soft. EXTREMITIES: Both lower extremities stumps are well healed. LABORATORY DATA: White blood cell count 9.7, hemoglobin 8.5, platelets 115,000. Sodium 139, potassium 3.6, chloride 105, bicarbonate 21, BUN 40, creatinine 6.3. Two out of two blood cultures from yesterday are positive for Gram-positive amaris. IMPRESSION: 1. Bacteremia with vascular access being the most likely source. His current antimicrobial therapy should cover the pathogens while we are waiting for sensitivities. 2. End-stage renal disease. 3. Peripheral vascular disease with bilateral [id number] amputations. 4. History of noncompliance per Nephrology's note. PLAN: Continue on microbial therapy supportive care. His hemodynamics are stable. I suspect, he is responding to antibiotics. This is a 50-minute consult with greater than 50% of the time was spent on the unit coordinating care .
[2017-07-15 08:22] LABS: Vancomycin, Random 17.7 ug/mL (See Comment)
--- NOTE | 2017-07-15 08:23 | PDOC.FM ---
- Subjective Subjective: Patient doing better this AM. He reports continued cough. He reports that his dizziness and nausea have improved and he is eating well. He is having no pain from the site where his catheter was pulled. - Objective MAR Reviewed: Yes Vital Signs & Weight: Vital Signs (12 hours) Temp Pulse Resp BP Pulse Ox 07/15/17 03:00 98.7 F 97 18 146/73 H 97 07/15/17 00:00 90 18 108/53 L 92 L 07/14/17 22:30 98.7 F 101 H 18 128/72 94 L Weight Admit Weight 135.806 kg Weight 135.806 kg I&O: 07/14/17 07/15/17 07/16/17 06:59 06:59 06:59 Intake Total 920 940 Output Total 110 250 Balance 810 690 Result Diagrams: 07/15/17 03:56 07/15/17 03:56 <Paradise Guerra - Last Filed: 07/15/17 08:32> - Objective Vital Signs & Weight: Vital Signs (12 hours) Temp Pulse Resp BP Pulse Ox 07/15/17 12:00 98.4 F 96 24 H 135/62 99 07/15/17 08:00 98.2 F 93 20 152/75 H 96 07/15/17 03:00 98.7 F 97 18 146/73 H 97 Weight Admit Weight 135.806 kg Weight 135.806 kg I&O: 07/14/17 07/15/17 07/16/17 06:59 06:59 06:59 Intake Total 920 940 0 Output Total 110 250 0 Balance 810 690 0 Result Diagrams: 07/15/17 03:56 07/15/17 03:56 <Laurie Gong - Last Filed: 07/15/17 14:11> Phys Exam - Physical Examination Constitutional: NAD HEENT: moist MMs Respiratory: no wheezing, no rales, no rhonchi, clear to auscultation bilateral Cardiovascular: RRR, no significant murmur, no rub Gastrointestinal: soft, non-tender, no distention, positive bowel sounds Musculoskeletal: no edema, pulses present No spinous tenderness Neurological: non-focal, moves all 4 limbs Psychiatric: normal affect, A&O x 3 Skin: no rash, normal turgor, cap refill <2 seconds <Paradise Guerra - Last Filed: 07/15/17 08:32> Dx/Plan (1) Severe sepsis Code(s): A41.9 - SEPSIS, UNSPECIFIED ORGANISM; R65.20 - SEVERE SEPSIS WITHOUT SEPTIC SHOCK Status: Acute (2) Status post fall Code(s): Z91.81 - HISTORY OF FALLING Status: Acute (3) ESRD (end stage renal disease) Code(s): N18.6 - END STAGE RENAL DISEASE Status: Chronic (4) Diabetes mellitus type 2 in obese Code(s): E11.69 - TYPE 2 DIABETES MELLITUS WITH OTHER SPECIFIED COMPLICATION; E66.9 - OBESITY, UNSPECIFIED Status: Acute (5) Hyperlipidemia Code(s): E78.5 - HYPERLIPIDEMIA, UNSPECIFIED Status: Chronic QualifierTitle: Hyperlipidemia type: unspecified Qualified Code(s): E78.5 - Hyperlipidemia, unspecified (6) Hypertension Code(s): I10 - ESSENTIAL (PRIMARY) HYPERTENSION Status: Chronic QualifierTitle: Hypertension type: essential hypertension Qualified Code( s): I10 - Essential (primary) hypertension (7) Morbid obesity Code(s): E66.01 - MORBID (SEVERE) OBESITY DUE TO EXCESS CALORIES Status: Chronic (8) BRANDON (obstructive sleep apnea) Code(s): G47.33 - OBSTRUCTIVE SLEEP APNEA (ADULT) (PEDIATRIC) Status: Chronic (9) Peripheral 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 mellitus Code(s): E11.43 - TYPE 2 DIABETES W DIABETIC AUTONOMIC (POLY)NEUROPATHY Status : Chronic QualifierTitle: Diabetes mellitus type: type 2 Qualified Code(s): E11.43 - Type 2 diabetes mellitus with diabetic autonomic (poly)neuropathy (10) Peripheral vascular disease Code(s): I73.9 - PERIPHERAL VASCULAR DISEASE, UNSPECIFIED Status: Chronic (11) Acid reflux Code(s): K21.9 - GASTRO-ESOPHAGEAL REFLUX DISEASE WITHOUT ESOPHAGITIS Status: Chronic QualifierTitle: Esophagitis presence: esophagitis presence not specified Qualified Code(s): K21.9 - Gastro-esophageal reflux disease without esophagitis - Plan Plan: 1. Severe Sepsis This is 2/2 CABSI from the dialysis catheter. The BCx grew out Corynebacterium x2. WBC 25.9 with 24% bands, downtrended yesterday to 9.7 and is back up to 16.9 today. Lactate has improved from 2.8 to 2.1. The patient became hypotensive in the ED, but responded to 3L NS bolus. His BP has remained stable since this. Dr. Delarosa removed the catheter on 07/14. CXR showed no signs of infection. The patient fevered yesterday afternoon and was tachycardic and tachypneic prior to the catheter being pulled, but his vitals have been stable since it was removed. Abd/Pelvis CT showed some perinephric inflammatory changes -Vanc day 3, Zosyn discontinued due to corynebacterium species -Line Cx -UA/UCx -Tylenol prn fevers -Will repeat BCx to confirm resolution. 2. s/p Fall The patient hit his head after his fall on 07/13. Patient not complaining of any headache or pain. -CT head revealed a possible scalp hematoma, but no intracranial abnormality -Monitor for neuro changes 3. Vertigo This is likely 2/2 BPPV, but will r/o subacute cerebellar infarct with CT head. The patient has associated N/V. -Meclizine -Zofran 4. ESRD on HD The patient sees Dr. Dhillon with nephrology and receives Dialysis on . He did not go to dialysis on 07/13 due to his dizziness and fall. -Dr. Dhillon has been consulted, appreciate recs -Will monitor for signs of fluid overload with giving patient fluids for sepsis 5. DMII -Continue home levemir -SSI -Accuchecks ACHS -CC diet 6. HTN Patient has been hypotensive 2/2 sepsis -Hold home BP medications at this time and monitor 7. HLD -continue home meds 8. PVD s/p Bilateral BKA Patient is wheelchair bound. 9. BRANDON Patient is not on CPAP and reports never being started on CPAP. -Will monitor O2 sats, especially at night 10. Acid Reflux -Continue home protonix. The acid reflux could be contributing to the patient's cough as the protonix was just recently started. <Paradise Guerra - Last Filed: 07/15/17 08:32> Attending Addendum - Attending Addendum Date/Time: 07/15/17 5749 I personally evaluated the patient and discussed the management with Dr. Guerra on 07/15/17. I agree with the History, Examination, Assessment and Plan documented above with any addition or exceptions noted below. Patient with central catheter infection, now 2/2 blood culture positive for Corynebacterium. Have asked lab to speciate and determine susceptibilities. For now, continue Vanc and d/c Zosyn. Repeat cultures today and if negative can transition to PO treatment for 2 weeks now that line has been pulled. Transfer to tele. <Laurie Gong - Last Filed: 07/15/17 14:11>
--- NOTE | 2017-07-15 10:07 | PRG ---
DATE OF SERVICE: 07/15/2017 SUBJECTIVE: This is a 46-year-old gentleman being seen for end-stage renal disease. The patient denies any nausea, vomiting or chest pain. PHYSICAL EXAMINATION: GENERAL: Patient is awake, alert. VITAL SIGNS: Afebrile, pulse 70, breathing 16, blood pressure 152/75. HEAD/NECK: Normocephalic. Atraumatic. EYES: EOMI. No deformity. EARS: Clear. No ulcers. NOSE: Intact. No lesions. MOUTH: Clear. No discharge. THROAT: Clear. No exudate. LUNGS: Clear. No crackles. CARDIAC: S1, S2. No rub. ABDOMEN: Benign. BS+. GENITALIA/RECTUM: Choe absent. BACK/EXTREMITIES: Edema 0+ Ulcer- NEUROLOGICAL: Alert and motor intact. SKIN: Rash- Bruise- LYMPHATICS: Edema- Ulcer- LABORATORY DATA: Show hemoglobin is 8 and white count is 16.9. ASSESSMENT AND PLAN: 1.ESRD HD in AM 2. HTn stable 3. Anemia stable. 4. Line sepsis. Will use AVF in AM. MTDD
[2017-07-15] MEDS: Benzonatate 100 MG CAP PO PRN ×2 (10:10→15:45)
[2017-07-15] MEDS: Heparin 5,000 UNITS/ML VIAL SC SCH ×3 (10:10→19:55)
[2017-07-15] MEDS: Atorvastatin Calcium 40 MG TAB PO SCH (10:10)
[2017-07-15] MEDS: Gabapentin 300 MG CAP PO SCH (10:10)
--- NOTE | 2017-07-15 12:47 | PRG ---
DATE OF SERVICE: 07/15/2017 Mr. Martinez is doing well. He is afebrile. He has been treated with nebulizers for a productive cough . PHYSICAL EXAMINATION: VITAL SIGNS: Temperature 98.4 degrees, 96, respiratory rate 24, 135/62. Blood cultures positive for Corynebacterium. His hemodialysis catheter was removed last night. He h as a functioning left upper arm fistula and I talked to Dr. Dhillon, they will try to access that tomorr ow. If access is not successful I will place an IJ cuffed tunnel dialysis catheter on Thursday. Hopef ully, they can access his fistula and a new catheter will not be necessary. Left arm, good thrill an d bruit. This fistula has already arterialized from a wrist Martina fistula which later thrombosed an d then revision to a more proximal fistula inflow proximal radial artery, outflow cephalic vein was p erformed and the vein was already dilated and large. Hopefully, they will be able to successfully ac cess it.
--- NOTE | 2017-07-15 13:19 | RAD ---
PORTABLE CHEST ONE VIEW: Date: 07-15-17 Time: 12:31 p.m. History: Cough. FINDINGS: Comparison is made with exam of 07-13-17. Interval removal of the right sided dialysis catheter is seen. The heart size is borderline. The lung s are well expanded without focal areas of consolidation, pneumothorax, or pleural effusions. IMPRESSION: No radiographic evidence of acute cardiopulmonary process. POS: [facility]
[2017-07-15] MEDS: Guaifenesin DM 100-10/5 ML UDCUP PO PRN ×2 (15:23→19:56)
--- NOTE | 2017-07-15 15:49 | PRG ---
DATE OF SERVICE: 07/15/2017 SUBJECTIVE: Mr. Martinez had his dialysis catheter removed. The plan was to access his fistula today. OBJECTIVE: VITAL SIGNS: He is afebrile, heart rate is 96, respiratory rate is 24, oximetry is 99 on room air, b lood pressure 135/62. There has been no change in his exam. IMAGING: Chest radiograph is clear. IMPRESSION: Bacteremia secondary to a tunneled dialysis catheter. PLAN: Continue antimicrobial therapy with dialysis.
[2017-07-15] MEDS ORDERED: Amlodipine 5 MG TAB PO SCH (18:45)
[2017-07-15] MEDS: Insulin Detemir 100 UNITS/ML 35 UNITS in Pre-Filled Syringe 1 EACH SC SCH (19:55)
[2017-07-16] MEDS: Acetaminophen 325 MG TAB PO PRN (02:21)
[2017-07-16 05:14] LABS: Anion Gap 14 mmol/L (10-20); BUN (Urea Nitrogen) 26 mg/dL (8.9-20.6); Calc. Creatinine Clearance 32 mL/min (70-130); Calcium 8.1 mg/dL (7.8-10.44); Carbon Dioxide 26 mmol/L (22-29); Chloride 99 mmol/L (98-107); Estimated GFR-MDRD 13; Glucose 139 mg/dL (70-105); Potassium 3.7 mmol/L (3.5-5.1); Sodium 135 mmol/L (136-145)
[2017-07-16 05:28] LABS: Band 2 % (5-11); Hemoglobin 7.3 g/dL (14.0-18.0); Lymphocytes 3 % (21-51); MDiff Complete? YES; Mean Corpuscular HGB CONC 30.7 g/dL (32.0-36.0); Mean Corpuscular Hemoglobin 26.1 pg (27.0-31.0); Monocytes 1 % (0-10); Neutrophil 94 % (42-75); Platelet Count 139 thou/uL (130-400); RBC Distribution Width 17.9 % (11.5-14.5); Red Blood Cell (RBC) Count 2.82 mill/uL (4.70-6.10); White Blood Cell (WBC) Count 27.1 thou/uL (4.8-10.8)
--- NOTE | 2017-07-16 07:42 | PDOC.FM ---
- Subjective Subjective: Patient reports that he is feeling a little better. He denies feeling any fevers overnight despite several measured fevers. He denies any nausea or vomiting. He reports some dizziness, but states that it has improved. He denies chest pain, SOB, abdominal pain. He is still having a cough, but states that the cough medicine has helped. - Objective MAR Reviewed: Yes Vital Signs & Weight: Vital Signs (12 hours) Temp Pulse Resp BP BP BP Pulse Ox 07/16/17 04:37 98.8 F 95 20 110/59 L 95 07/16/17 00:00 101.6 F H 105 H 22 H 108/62 94 L 07/15/17 21:40 100.6 F H 110 H 22 H 92 L 07/15/17 19:55 126 H 117/55 L 07/15/17 19:49 100.4 F H 126 H 20 117/55 L 93 L Weight Admit Weight 135.806 kg Weight 135.806 kg I&O: 07/15/17 07/16/17 07/17/17 06:59 06:59 06:59 Intake Total 940 1040 Output Total 250 150 Balance 690 890 Result Diagrams: 07/16/17 04:23 07/16/17 04:23 <Paradise Guerra - Last Filed: 07/16/17 07:41> - Objective Vital Signs & Weight: Vital Signs (12 hours) Temp Pulse Resp BP Pulse Ox 07/16/17 08:00 97.8 F 94 20 123/66 94 L 07/16/17 04:37 98.8 F 95 20 110/59 L 95 Weight Admit Weight 135.806 kg Weight 135.806 kg I&O: 07/15/17 07/16/17 07/17/17 06:59 06:59 06:59 Intake Total 940 1040 Output Total 250 150 Balance 690 890 Result Diagrams: 07/16/17 04:23 07/16/17 04:23 <Laurie Gong - Last Filed: 07/16/17 12:19> Phys Exam - Physical Examination Constitutional: NAD HEENT: moist MMs, sclera anicteric, oral pharynx no lesions Respiratory: no wheezing, no rales, no rhonchi, clear to auscultation bilateral Cardiovascular: RRR, no significant murmur, no rub Gastrointestinal: soft, non-tender, no distention, positive bowel sounds Musculoskeletal: no edema, pulses present bilateral BKA Neurological: non-focal, moves all 4 limbs Psychiatric: normal affect, A&O x 3 Skin: no rash, normal turgor, cap refill <2 seconds <Paradise Guerra - Last Filed: 07/16/17 07:41> Dx/Plan (1) Line sepsis associated with dialysis catheter Code(s): T80.218A - OTHER INFECTION DUE TO CENTRAL VENOUS CATHETER, INIT ENCNTR ; A41.9 - SEPSIS, UNSPECIFIED ORGANISM Status: Acute (2) Severe sepsis Code(s): A41.9 - SEPSIS, UNSPECIFIED ORGANISM; R65.20 - SEVERE SEPSIS WITHOUT SEPTIC SHOCK Status: Acute (3) Status post fall Code(s): Z91.81 - HISTORY OF FALLING Status: Acute (4) ESRD (end stage renal disease) Code(s): N18.6 - END STAGE RENAL DISEASE Status: Chronic (5) Diabetes mellitus type 2 in obese Code(s): E11.69 - TYPE 2 DIABETES MELLITUS WITH OTHER SPECIFIED COMPLICATION; E66.9 - OBESITY, UNSPECIFIED Status: Acute (6) Hyperlipidemia Code(s): E78.5 - HYPERLIPIDEMIA, UNSPECIFIED Status: Chronic QualifierTitle: Hyperlipidemia type: unspecified Qualified Code(s): E78.5 - Hyperlipidemia, unspecified (7) Hypertension Code(s): I10 - ESSENTIAL (PRIMARY) HYPERTENSION Status: Chronic QualifierTitle: Hypertension type: essential hypertension Qualified Code( s): I10 - Essential (primary) hypertension (8) Morbid obesity Code(s): E66.01 - MORBID (SEVERE) OBESITY DUE TO EXCESS CALORIES Status: Chronic (9) BRANDON (obstructive sleep apnea) Code(s): G47.33 - OBSTRUCTIVE SLEEP APNEA (ADULT) (PEDIATRIC) Status: Chronic (10) Peripheral 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 mellitus Code(s): E11.43 - TYPE 2 DIABETES W DIABETIC AUTONOMIC (POLY)NEUROPATHY Status : Chronic QualifierTitle: Diabetes mellitus type: type 2 Qualified Code(s): E11.43 - Type 2 diabetes mellitus with diabetic autonomic (poly)neuropathy (11) Peripheral vascular disease Code(s): I73.9 - PERIPHERAL VASCULAR DISEASE, UNSPECIFIED Status: Chronic (12) Acid reflux Code(s): K21.9 - GASTRO-ESOPHAGEAL REFLUX DISEASE WITHOUT ESOPHAGITIS Status: Chronic QualifierTitle: Esophagitis presence: esophagitis presence not specified Qualified Code(s): K21.9 - Gastro-esophageal reflux disease without esophagitis - Plan Plan: 1. Severe Sepsis This is 2/2 CABSI from the dialysis catheter. The BCx grew out Corynebacterium x2. WBC 25.9 with 24% bands, downtrended yesterday to 9.7 and is back up to 16.9 today. Lactate has improved from 2.8 to 2.1. The patient became hypotensive in the ED, but responded to 3L NS bolus. His BP has remained stable since this. Dr. Delarosa removed the catheter on 07/14. CXR showed no signs of infection. Abd/Pelvis CT showed some perinephric inflammatory changes The patient has continued to fever and have tachycardia and tachypnea after the catheter was removed. Zosyn was d/c'd yesterday due to isolation of the pathogen. Considering endocarditis on the differential. -Vanc day 4, Zosyn restarted today due to new fevers after discontinuation of the zosyn even after the line had been removed. -Will recheck BCx -Line Cx -UA/UCx -Tylenol prn fevers -Initial BCx have been sent to outside laboratory for speciation and sensitivities 2. s/p Fall The patient hit his head after his fall on 07/13. Patient not complaining of any headache or pain. -CT head revealed a possible scalp hematoma, but no intracranial abnormality -Monitor for neuro changes 3. Vertigo This is likely 2/2 BPPV, but will r/o subacute cerebellar infarct with CT head. The patient has associated N/V. -Meclizine -Zofran 4. ESRD on HD The patient sees Dr. Dhillon with nephrology and receives Dialysis on . He did not go to dialysis on 07/13 due to his dizziness and fall. -Dr. Dhillon has been consulted, appreciate recs -Patient received dialysis on 07/14 -Dialysis catheter has been removed and an attempt will be made to access his L fistula 5. DMII -Continue home levemir -SSI -Accuchecks ACHS -CC diet 6. HTN Patient has been hypotensive 2/2 sepsis -Hold home BP medications at this time and monitor 7. HLD -continue home meds 8. PVD s/p Bilateral BKA Patient is wheelchair bound. -Chair with assist -PT/OT 9. BRANDON Patient is not on CPAP and reports never being started on CPAP. -Will monitor O2 sats, especially at night 10. Acid Reflux -Continue home protonix. The acid reflux could be contributing to the patient's cough as the protonix was just recently started. <Paradise Guerra - Last Filed: 07/16/17 07:41> Attending Addendum - Attending Addendum Date/Time: 07/16/17 1217 I personally evaluated the patient and discussed the management with Dr. Guerra on 07/16/17. I agree with the History, Examination, Assessment and Plan documented above with any addition or exceptions noted below. Patient with catheter infection causing Corynebacterium bacteremia. Catheter removed and Zosyn stopped as Vanc is the preferred treatment. However, after stopping Zosyn, fevers worsened. Zosyn restarted and blood cultures rechecked. Culture sent off for speciation/sensitivities. If remains febrile on Zosyn will consult Dr. Brower for antibiotic assistance and consider LEANNA for possible endocarditis. <Laurie Gong - Last Filed: 07/16/17 12:19>
[2017-07-16 10:12] LABS: Vancomycin, Random 15.5 ug/mL (See Comment)
[2017-07-16] MEDS: Piperacillin/Tazobactam 2.25 GM in Sodium Chloride 0.9% 100 ML IVPB SCH ×2 (10:12→20:53)
[2017-07-16] MEDS: Atorvastatin Calcium 40 MG TAB PO SCH (10:12)
[2017-07-16] MEDS: Gabapentin 300 MG CAP PO SCH (10:12)
[2017-07-16] MEDS: Heparin 5,000 UNITS/ML VIAL SC SCH ×3 (10:13→22:02)
--- NOTE | 2017-07-16 10:49 | PRG ---
DATE OF SERVICE: 07/16/2017 SUBJECTIVE: This is a 46-year-old gentleman being seen for end-stage renal disease. The patient den ies any nausea, vomiting or chest pain. OBJECTIVE: GENERAL: Patient is awake, alert. VITAL SIGNS: Afebrile, pulse 75, breathing 16, blood pressure 126/66. GENERAL APPEARANCE AND MENTAL STATUS: Fair. HEAD/NECK: Normocephalic. Atraumatic. EYES: EOMI. No deformity. EARS: Clear. No ulcers. NOSE: Intact. No lesions. MOUTH: Clear. No discharge. THROAT: Clear. No exudate. LUNGS: Clear. No crackles. CARDIAC: S1, S2. No rub. ABDOMEN: Benign. BS+. GENITALIA/RECTUM: Choe absent. BACK/EXTREMITIES: Edema 0+ Ulcer- NEUROLOGICAL: Alert and motor intact. SKIN: Rash- Bruise- LYMPHATICS: Edema- Ulcer- LABORATORY: Hemoglobin 7.3, creatinine 5.6. ASSESSMENT: 1. Chronic renal failure, on hemodialysis. 2. Hypertension, stable. 3. Anemia. We would recommend 1 unit of packed red blood cells. Continue Epogen. 4. Failed access. The patient will get a tunneled catheter. Fistula was not accessible.
[2017-07-16] MEDS ORDERED: Heparin 10,000 UNITS/1 ML VIAL ONE (12:55)
[2017-07-16] MEDS ORDERED: Bupivacaine HCl 0.5%/Epinephrine 1:200,000/PF 30 ml Vial ONE (12:55)
[2017-07-16] MEDS ORDERED: Sodium Chloride 0.9% 10 ML ONE (12:55)
[2017-07-16 14:27] LABS: Ref Lab Test Ordered AEROBIC ID AND SENS; Reference Lab Name LABCORP
[2017-07-16] MEDS ORDERED: Promethazine HCl 25 MG/ML VIAL IM PRN (14:55)
[2017-07-16] MEDS ORDERED: Ondansetron HCl/PF 4 MG/2 ML Vial IVP PRN (14:55)
[2017-07-16] MEDS ORDERED: Promethazine HCl 25 MG/ML VIAL SLOW IVP PRN (14:55)
--- NOTE | 2017-07-16 15:54 | RAD ---
CHEST ONE VIEW: 07/16/17 HISTORY: Hemodialysis catheter placement. COMPARISON: 07/15/17. FINDINGS: Single view chest demonstrates a right sided hemosplit dialysis catheter. The tip projects over the r ight atrium. No pneumothorax. No osseous abnormalities. IMPRESSION: No acute cardiopulmonary process. No pneumothorax. POS: [facility]
--- NOTE | 2017-07-16 16:51 | OP ---
DATE OF PROCEDURE: 07/16/2017 PREOPERATIVE DIAGNOSES: Recent bacteremia, status post removal of a hemodialysis catheter with matur ing left upper arm cephalic vein fistula, and bilateral amputee. POSTOPERATIVE DIAGNOSES: Recent bacteremia, status post removal of a hemodialysis catheter with matu ring left upper arm cephalic vein fistula, and bilateral amputee with unable to cannulate the right i nternal jugular vein despite visualizing it with ultrasound. It was partially compressible, but may be occluded, could not cannulate it. PROCEDURE: Ultrasound and fluoroscopy used to place a left IJ cuffed tunnel hemodialysis catheter, a ngiodynamics precurved, left internal jugular vein. SURGEON: Dr. Jenaro Delarosa. ANESTHESIA: Local. Intravenous sedation, local 0.5% Marcaine with epinephrine, 30 mL, mixed with 2% Xylocaine, 10 mL. DESCRIPTION OF PROCEDURE: The patient was taken to the operating room where under intravenous sedati on. After earlier today, failed to attempt cannulating the left upper arm fistula. The neck and loy st prepared with ChloraPrep, draped in routine fashion. Local anesthetic infiltrated into the skin a nd subcutaneous tissue about the operative site. Using ultrasound guidance, the right internal jugul ar vein was visualized, it was seemed to be compressible, but not as readily as normal and I could no t cannulate the vein. Ultrasound was used to cannulate the left internal jugular vein. J-wire threa ded. Trocar catheter removed. Skin incised and enlarged sharply. Stab incision made over the left chest and using the tunneling device, precurved hemodialysis catheter tunneled between the 2 incision s, placing the fabric cuff beneath the skin exit site and catheter secured with 2 interrupted sutures of 3-0 nylon and Dermabond and Biopatch applied. Smaller medium sized dilators placed over the J-wi re into the internal jugular vein removed. Dilator and pull-away sheath under fluoroscopic visualiza tion placed in the superior vena cava and dilator and J-wire removed. Catheter placed with pull-away sheath and pull-away sheath removed. Fluoroscopic catheter will be in good position in the superior vena cava. Platysma approximated with 4-0 Monocryl, skin with subdermal 4-0 Monocryl and DermaGlue applied. Each port aspirated blood and flushed with saline solution and heparinized saline solution 1000 units heparin per mL indicated volume of the port.
[2017-07-16] MEDS: Guaifenesin DM 100-10/5 ML UDCUP PO PRN (22:01)
[2017-07-16] MEDS: Insulin Detemir 100 UNITS/ML 35 UNITS in Pre-Filled Syringe 1 EACH SC SCH (22:03)
[2017-07-17 05:51] LABS: Anion Gap 14 mmol/L (10-20); BUN (Urea Nitrogen) 20 mg/dL (8.9-20.6); Calc. Creatinine Clearance 42 mL/min (70-130); Calcium 8.2 mg/dL (7.8-10.44); Carbon Dioxide 25 mmol/L (22-29); Chloride 99 mmol/L (98-107); Estimated GFR-MDRD 19; Glucose 154 mg/dL (70-105); Potassium 3.7 mmol/L (3.5-5.1); Sodium 134 mmol/L (136-145)
[2017-07-17 07:29] LABS: #Basophils 0.1 thou/uL (0.0-0.2); #Eosinphils 0.3 thou/uL (0.0-0.7); #Monocytes 0.5 thou/uL (0.11-0.59); #Neutrophils 6.5 thou/uL (1.40-6.50); %Basophils 0.9 % (0.0-1.0); %Eosinophils 3.2 % (0.0-10.0); %Lymphocytes 11.9 % (21.0-51.0); %Monocytes 5.7 % (0.0-10.0); %Neutrophils 78.3 % (42.0-75.0); Hemoglobin 7.4 g/dL (14.0-18.0); MDiff Complete? YES; Mean Corpuscular HGB CONC 31.4 g/dL (32.0-36.0); Mean Corpuscular Hemoglobin 27.4 pg (27.0-31.0); Mean Corpuscular Volume 87.4 fl (80.0-94.0); Mean Platelet Volume 8.4 fL (7.4-10.4); PLT Morphology Comment Appears Decreased; Platelet Count 115 thou/uL (130-400); Polychromasia SLIGHT = 2-3 cells (100X) (0-2/hpf); RBC Distribution Width 17.7 % (11.5-14.5); White Blood Cell (WBC) Count 8.2 thou/uL (4.8-10.8)
--- NOTE | 2017-07-17 08:22 | PDOC.FM ---
- Subjective Subjective: Patient feels better this morning except he now has new diarrhea. He reports that this started yesterday and continued through the night with several loose stools. He denies any fevers, N/V. He denies any dizziness, chest pain, SOB. - Objective MAR Reviewed: Yes Vital Signs & Weight: Vital Signs (12 hours) Temp Pulse Resp BP BP Pulse Ox 07/17/17 08:00 98.9 F 95 20 07/17/17 07:15 98.7 F 95 20 145/77 H 92 L 07/17/17 04:00 98.9 F 95 20 167/81 H 95 07/17/17 00:00 97.6 F 92 18 117/58 L 91 L 07/16/17 21:10 98.2 F 95 22 H 95 07/16/17 21:00 98.2 F 95 22 H 129/65 96 Weight Admit Weight 135.806 kg Weight 135.806 kg I&O: 07/16/17 07/17/17 07/18/17 06:59 06:59 06:59 Intake Total 1040 820 Output Total 150 Balance 890 820 Result Diagrams: 07/17/17 05:42 07/17/17 05:22 <Paradise Guerra - Last Filed: 07/17/17 08:18> - Objective Vital Signs & Weight: Vital Signs (12 hours) Temp Pulse Resp BP Pulse Ox 07/18/17 08:00 98.0 F 99 20 125/64 92 L 07/18/17 04:00 98.5 F 96 16 113/55 L 93 L 07/17/17 23:54 98.6 F 97 18 103/59 L 96 Weight Admit Weight 135.806 kg Weight 135.806 kg I&O: 07/17/17 07/18/17 07/19/17 06:59 06:59 06:59 Intake Total 1720 Balance 1720 Result Diagrams: 07/18/17 07:43 07/18/17 07:01 <Laurie Gong - Last Filed: 07/18/17 09:05> Phys Exam - Physical Examination Constitutional: NAD HEENT: moist MMs Respiratory: no wheezing, no rales, no rhonchi, clear to auscultation bilateral Cardiovascular: RRR, no significant murmur, no rub Gastrointestinal: soft, non-tender, no distention, positive bowel sounds Musculoskeletal: no edema, pulses present Bilateral BKA Neurological: non-focal, moves all 4 limbs Psychiatric: normal affect, A&O x 3 <Paradise Guerra - Last Filed: 07/17/17 08:18> Dx/Plan (1) Line sepsis associated with dialysis catheter Code(s): T80.218A - OTHER INFECTION DUE TO CENTRAL VENOUS CATHETER, INIT ENCNTR ; A41.9 - SEPSIS, UNSPECIFIED ORGANISM Status: Acute (2) Severe sepsis Code(s): A41.9 - SEPSIS, UNSPECIFIED ORGANISM; R65.20 - SEVERE SEPSIS WITHOUT SEPTIC SHOCK Status: Acute (3) Status post fall Code(s): Z91.81 - HISTORY OF FALLING Status: Acute (4) ESRD (end stage renal disease) Code(s): N18.6 - END STAGE RENAL DISEASE Status: Chronic (5) Diabetes mellitus type 2 in obese Code(s): E11.69 - TYPE 2 DIABETES MELLITUS WITH OTHER SPECIFIED COMPLICATION; E66.9 - OBESITY, UNSPECIFIED Status: Acute (6) Hyperlipidemia Code(s): E78.5 - HYPERLIPIDEMIA, UNSPECIFIED Status: Chronic QualifierTitle: Hyperlipidemia type: unspecified Qualified Code(s): E78.5 - Hyperlipidemia, unspecified (7) Hypertension Code(s): I10 - ESSENTIAL (PRIMARY) HYPERTENSION Status: Chronic QualifierTitle: Hypertension type: essential hypertension Qualified Code( s): I10 - Essential (primary) hypertension (8) Morbid obesity Code(s): E66.01 - MORBID (SEVERE) OBESITY DUE TO EXCESS CALORIES Status: Chronic (9) BRANDON (obstructive sleep apnea) Code(s): G47.33 - OBSTRUCTIVE SLEEP APNEA (ADULT) (PEDIATRIC) Status: Chronic (10) Peripheral 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 mellitus Code(s): E11.43 - TYPE 2 DIABETES W DIABETIC AUTONOMIC (POLY)NEUROPATHY Status : Chronic QualifierTitle: Diabetes mellitus type: type 2 Qualified Code(s): E11.43 - Type 2 diabetes mellitus with diabetic autonomic (poly)neuropathy (11) Peripheral vascular disease Code(s): I73.9 - PERIPHERAL VASCULAR DISEASE, UNSPECIFIED Status: Chronic (12) Acid reflux Code(s): K21.9 - GASTRO-ESOPHAGEAL REFLUX DISEASE WITHOUT ESOPHAGITIS Status: Chronic QualifierTitle: Esophagitis presence: esophagitis presence not specified Qualified Code(s): K21.9 - Gastro-esophageal reflux disease without esophagitis - Plan Plan: 1. Severe Sepsis This is 2/2 CABSI from the dialysis catheter. The BCx grew out Corynebacterium x2. WBC 25.9 with 24% bands, downtrended. Lactate has improved from 2.8 to 2.1. The patient became hypotensive in the ED, but responded to 3L NS bolus. His BP has remained stable since this. Dr. Delarosa removed the catheter on 07/14. CXR showed no signs of infection. Abd/Pelvis CT showed some perinephric inflammatory changes The patient has continued to fever and have tachycardia and tachypnea after the catheter was removed. Zosyn was d/c'd yesterday due to isolation of the pathogen. Considering endocarditis on the differential. New dialysis catheter was placed on 07/16 as the patient's fistula could not be accessed. -Vanc day 5, Zosyn day 5 -BCx -Line Cx -UA/UCx -Tylenol prn fevers -Initial BCx have been sent to outside laboratory for speciation and sensitivities 2. s/p Fall The patient hit his head after his fall on 07/13. Patient not complaining of any headache or pain. -CT head revealed a possible scalp hematoma, but no intracranial abnormality -Monitor for neuro changes 3. Vertigo This is likely 2/2 BPPV, but will r/o subacute cerebellar infarct with CT head. The patient had associated N/V. This has improved -Meclizine -Zofran 4. ESRD on HD The patient sees Dr. Dhillon with nephrology and receives Dialysis on . He did not go to dialysis on 07/13 due to his dizziness and fall. -Dr. Dhillon has been consulted, appreciate recs -Patient received dialysis on 07/14, 07/16 -Dialysis catheter has been removed and an attempt was made to access his L fistula, which was unsuccessful. Dr. Delarosa placed a new dialysis catheter on 07/16. 5. DMII -Continue home levemir -SSI -Accuchecks ACHS -CC diet 6. HTN Patient has been hypotensive 2/2 sepsis -Hold home BP medications at this time and monitor 7. HLD -continue home meds 8. PVD s/p Bilateral BKA Patient is wheelchair bound. -Chair with assist -PT/OT 9. BRANDON Patient is not on CPAP and reports never being started on CPAP. -Will monitor O2 sats, especially at night 10. Acid Reflux -Continue home protonix. The acid reflux could be contributing to the patient's cough as the protonix was just recently started. 11. Diarrhea -Will check c. diff as patient has been on abx, but this could also just be a medication side effect. <Paradise Guerra - Last Filed: 07/17/17 08:18> Attending Addendum - Attending Addendum Date/Time: 07/18/17 0904 I personally evaluated the patient and discussed the management with Dr. Guerra on 07/17/17. I agree with the History, Examination, Assessment and Plan documented above with any addition or exceptions noted below. Patient feeling much better. Remains afebrile on Zosyn and Vanc. Will consult Dr. Brower for assistance with recommendations on abx of choice and duration of treatment from catheter-associated Corynebacterium. Infected line removed, but patient now has a second dialysis catheter in place. <Laurie Gong - Last Filed: 07/18/17 09:05>
--- NOTE | 2017-07-17 08:22 | PRG ---
DATE OF SERVICE: 07/17/2017 SUBJECTIVE: This is a 46-year-old gentleman being seen for end-stage renal disease. The patient den ies any nausea, vomiting or chest pain. PHYSICAL EXAMINATION: GENERAL: Patient is awake, alert. VITAL SIGNS: Afebrile, pulse 75, breathing 16, blood pressure 117/58. OBJECTIVE: See above. Awake, alert, in no acute distress. GENERAL APPEARANCE AND MENTAL STATUS: Fair. HEAD/NECK: Normocephalic. Atraumatic. EYES: EOMI. No deformity. EARS: Clear. No ulcers. NOSE: Intact. No lesions. MOUTH: Clear. No discharge. THROAT: Clear. No exudate. LUNGS: Clear. No crackles. CARDIAC: S1, S2. No rub. ABDOMEN: Benign. BS+. GENITALIA/RECTUM: Choe absent. BACK/EXTREMITIES: Edema 0+ Ulcer- NEUROLOGICAL: Alert and motor intact. SKIN: Rash- Bruise- LYMPHATICS: Edema- Ulcer- LABORATORY: Hemoglobin 7.4. ASSESSMENT AND RECOMMENDATIONS: 1. Stage 6 chronic kidney disease, plan hemodialysis. 2. Hypertension, stable. 3. Anemia. I recommend 1 unit of packed red blood cells. 4. Medication based on glomerular filtration rate are appropriate. Access the patient's AV fistula is not working, will need a revision of the permanent access as an ou tpatient.
[2017-07-17] MEDS: Gabapentin 300 MG CAP PO SCH (09:50)
[2017-07-17] MEDS: Atorvastatin Calcium 40 MG TAB PO SCH (09:50)
[2017-07-17] MEDS: Piperacillin/Tazobactam 2.25 GM in Sodium Chloride 0.9% 100 ML IVPB SCH ×2 (09:51→21:59)
[2017-07-17] MEDS: Heparin 5,000 UNITS/ML VIAL SC SCH ×3 (12:09→22:00)
[2017-07-17] MEDS: HumaLOG 300 UNITS/3 ML VIAL SC PRN (12:58)
[2017-07-17 17:07] LABS: Bilirubin Small (Negative); Blood, Urine Trace (Negative); Clarity CLOUDY (Clear); Glucose, Urine (Dipstick) Negative (Negative); Leukocyte Small (Negative); Nitrite Negative (Negative); Protein, Urine (Dipstick) 300 mg/dL (Neg-Trace); Specific Gravity, Urine 1.023 (1.002-1.036); Urobilinogen 0.2 mg/dL (0.2-1.0)
[2017-07-17 17:08] LABS: Hyaline Casts/LPF 4-6 HYALINE CAST LPF (0-3 Hyaline); Pathc Cast-AUWi Flag 1.21 (0-2.49); WBC/HPF 21-50 HPF (0-3)
[2017-07-17 17:11] LABS: Yeast-AUWi Flag 321.2 (0-25.0)
[2017-07-17 17:20] LABS: Bacteria/HPF 1+ HPF (None Seen); Renal Epithelial None Seen HPF (0-3); Transitional Epithelial NONE SEEN HPF (0-3); Yeast-All Forms None Seen HPF (None Seen)
[2017-07-17] MEDS: Guaifenesin DM 100-10/5 ML UDCUP PO PRN ×2 (17:49→22:03)
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
[2017-07-17] MEDS: Insulin Detemir 100 UNITS/ML 35 UNITS in Pre-Filled Syringe 1 EACH SC SCH (22:01)
--- NOTE | 2017-07-18 07:21 | PDOC.FM ---
- Subjective Subjective: Patient feels much better this AM. He has continued to improve every day. He reports that the only thing that is still bothering him is his cough. He has been up to the chair. - Objective MAR Reviewed: Yes Vital Signs & Weight: Vital Signs (12 hours) Temp Pulse Resp BP BP Pulse Ox 07/18/17 04:00 98.5 F 96 16 113/55 L 93 L 07/17/17 23:54 98.6 F 97 18 103/59 L 96 07/17/17 20:42 99.3 F 99 18 97 07/17/17 19:52 99.3 F 99 18 143/77 H 97 Weight Admit Weight 135.806 kg Weight 135.806 kg I&O: 07/17/17 07/18/17 07/19/17 06:59 06:59 06:59 Intake Total 1720 Balance 1720 Result Diagrams: 07/17/17 05:42 07/17/17 05:22 <Paradise Guerra - Last Filed: 07/18/17 07:18> - Objective Vital Signs & Weight: Vital Signs (12 hours) Temp Pulse Resp BP Pulse Ox 07/18/17 08:00 98.0 F 99 20 125/64 92 L 07/18/17 04:00 98.5 F 96 16 113/55 L 93 L 07/17/17 23:54 98.6 F 97 18 103/59 L 96 Weight Admit Weight 135.806 kg Weight 135.806 kg I&O: 07/17/17 07/18/17 07/19/17 06:59 06:59 06:59 Intake Total 1720 360 Balance 1720 360 Result Diagrams: 07/18/17 07:43 07/18/17 07:01 <Tyrell Mckeon - Last Filed: 07/18/17 10:44> Phys Exam - Physical Examination Constitutional: NAD HEENT: moist MMs Respiratory: no wheezing, no rales, no rhonchi, clear to auscultation bilateral Cardiovascular: RRR, no significant murmur, no rub Gastrointestinal: soft, non-tender, no distention, positive bowel sounds Musculoskeletal: no edema, pulses present Bilateral BKA's, No CVA tenderness Neurological: non-focal, moves all 4 limbs Psychiatric: normal affect, A&O x 3 Skin: no rash, cap refill <2 seconds <Paradise Guerra - Last Filed: 07/18/17 07:18> Dx/Plan (1) Line sepsis associated with dialysis catheter Code(s): T80.218A - OTHER INFECTION DUE TO CENTRAL VENOUS CATHETER, INIT ENCNTR ; A41.9 - SEPSIS, UNSPECIFIED ORGANISM Status: Acute (2) Severe sepsis Code(s): A41.9 - SEPSIS, UNSPECIFIED ORGANISM; R65.20 - SEVERE SEPSIS WITHOUT SEPTIC SHOCK Status: Acute (3) Status post fall Code(s): Z91.81 - HISTORY OF FALLING Status: Acute (4) ESRD (end stage renal disease) Code(s): N18.6 - END STAGE RENAL DISEASE Status: Chronic (5) Diabetes mellitus type 2 in obese Code(s): E11.69 - TYPE 2 DIABETES MELLITUS WITH OTHER SPECIFIED COMPLICATION; E66.9 - OBESITY, UNSPECIFIED Status: Acute (6) Hyperlipidemia Code(s): E78.5 - HYPERLIPIDEMIA, UNSPECIFIED Status: Chronic QualifierTitle: Hyperlipidemia type: unspecified Qualified Code(s): E78.5 - Hyperlipidemia, unspecified (7) Hypertension Code(s): I10 - ESSENTIAL (PRIMARY) HYPERTENSION Status: Chronic QualifierTitle: Hypertension type: essential hypertension Qualified Code( s): I10 - Essential (primary) hypertension (8) Morbid obesity Code(s): E66.01 - MORBID (SEVERE) OBESITY DUE TO EXCESS CALORIES Status: Chronic (9) BRANDON (obstructive sleep apnea) Code(s): G47.33 - OBSTRUCTIVE SLEEP APNEA (ADULT) (PEDIATRIC) Status: Chronic (10) Peripheral 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 mellitus Code(s): E11.43 - TYPE 2 DIABETES W DIABETIC AUTONOMIC (POLY)NEUROPATHY Status : Chronic QualifierTitle: Diabetes mellitus type: type 2 Qualified Code(s): E11.43 - Type 2 diabetes mellitus with diabetic autonomic (poly)neuropathy (11) Peripheral vascular disease Code(s): I73.9 - PERIPHERAL VASCULAR DISEASE, UNSPECIFIED Status: Chronic (12) Acid reflux Code(s): K21.9 - GASTRO-ESOPHAGEAL REFLUX DISEASE WITHOUT ESOPHAGITIS Status: Chronic QualifierTitle: Esophagitis presence: esophagitis presence not specified Qualified Code(s): K21.9 - Gastro-esophageal reflux disease without esophagitis - Plan Plan: 1. Severe Sepsis This is 2/2 CABSI from the dialysis catheter vs pyelonephritis. The BCx grew out Corynebacterium x2. WBC 25.9 with 24% bands, downtrended. Lactate has improved from 2.8 to 2.1. The patient became hypotensive in the ED, but responded to 3L NS bolus. His BP has remained stable since this. Dr. Delarosa removed the catheter on 07/14. CXR showed no signs of infection. Abd/Pelvis CT showed some perinephric inflammatory changes. UA showed signs of infection The patient has continued to fever and have tachycardia and tachypnea after the catheter was removed. Zosyn was d/c'd yesterday due to isolation of the pathogen. Considering endocarditis on the differential. New dialysis catheter was placed on 07/16 as the patient's fistula could not be accessed. Repeat BCx and Line Cx have NGTD. -Dr. Brower with ID has been consulted, appreciate recs -Vanc day 6, Zosyn day 6 -BCx -Line Cx -UCx -Tylenol prn fevers -Initial BCx have been sent to outside laboratory for speciation and sensitivities 2. s/p Fall The patient hit his head after his fall on 07/13. Patient not complaining of any headache or pain. -CT head revealed a possible scalp hematoma, but no intracranial abnormality -Monitor for neuro changes 3. Vertigo This is likely 2/2 BPPV, but will r/o subacute cerebellar infarct with CT head. The patient had associated N/V. This has improved -Meclizine -Zofran 4. ESRD on HD The patient sees Dr. Dhillon with nephrology and receives Dialysis on . He did not go to dialysis on 07/13 due to his dizziness and fall. -Dr. Dhillon has been consulted, appreciate recs -Patient received dialysis on 07/14, 07/16 -Dialysis catheter has been removed and an attempt was made to access his L fistula, which was unsuccessful. Dr. Delarosa placed a new dialysis catheter on 07/16. 5. DMII -Continue home levemir -SSI -Accuchecks ACHS -CC diet 6. HTN Patient has been hypotensive 2/2 sepsis -Hold home BP medications at this time and monitor 7. HLD -continue home meds 8. PVD s/p Bilateral BKA Patient is wheelchair bound. -Chair with assist -PT/OT 9. BRANDON Patient is not on CPAP and reports never being started on CPAP. -Will monitor O2 sats, especially at night 10. Acid Reflux -Continue home protonix. The acid reflux could be contributing to the patient's cough as the protonix was just recently started. 11. Diarrhea -This is likely 2/2 medications. The patient was C. diff antigen positive, but toxin negative. <Paradise Guerra - Last Filed: 07/18/17 07:18> Attending Addendum - Attending Addendum Date/Time: 07/18/17 1041 I personally evaluated the patient and discussed the management with Dr. Guerra. I agree with the History, Examination, Assessment and Plan documented above with any addition or exceptions noted below. Patient stable this morning. Complains of mild headache. Continues to be afebrile and WBC normal. Continue antibiotic regimen at this time, and await further ID recs. CT scan showed possible pyelonephritis, for which is current antibiotic selection should cover. Urine cultures pending. <Tyrell Mckeon - Last Filed: 07/18/17 10:44>
[2017-07-18 07:43] LABS: Anion Gap 15 mmol/L (10-20); BUN (Urea Nitrogen) 27 mg/dL (8.9-20.6); Calc. Creatinine Clearance 32 mL/min (70-130); Calcium 8.3 mg/dL (7.8-10.44); Carbon Dioxide 26 mmol/L (22-29); Chloride 99 mmol/L (98-107); Estimated GFR-MDRD 14; Glucose 130 mg/dL (70-105); Potassium 3.9 mmol/L (3.5-5.1); Sodium 136 mmol/L (136-145)
[2017-07-18 08:02] LABS: #Eosinphils 0.3 thou/uL (0.0-0.7); #Lymphocytes 1.4 thou/uL (1.20-3.40); #Monocytes 0.7 thou/uL (0.11-0.59); #Neutrophils 5.9 thou/uL (1.40-6.50); %Basophils 0.1 % (0.0-1.0); %Eosinophils 3.7 % (0.0-10.0); %Lymphocytes 16.6 % (21.0-51.0); %Neutrophils 71.7 % (42.0-75.0); Hemoglobin 7.7 g/dL (14.0-18.0); Mean Corpuscular HGB CONC 30.1 g/dL (32.0-36.0); Mean Corpuscular Hemoglobin 26.1 pg (27.0-31.0); Mean Corpuscular Volume 86.9 fl (80.0-94.0); Mean Platelet Volume 8.8 fL (7.4-10.4); Platelet Count 146 thou/uL (130-400); RBC Distribution Width 17.9 % (11.5-14.5); Red Blood Cell (RBC) Count 2.93 mill/uL (4.70-6.10); White Blood Cell (WBC) Count 8.3 thou/uL (4.8-10.8)
[2017-07-18 08:03] LABS: MDiff Complete? YES
[2017-07-18] MEDS: Fluticasone Propionate Nasal Spray 16 gm Bottle NASAL SCH (08:40)
[2017-07-18] MEDS: Gabapentin 300 MG CAP PO SCH (08:41)
[2017-07-18] MEDS: Piperacillin/Tazobactam 2.25 GM in Sodium Chloride 0.9% 100 ML IVPB SCH ×2 (08:41→21:21)
[2017-07-18] MEDS: Atorvastatin Calcium 40 MG TAB PO SCH (08:41)
[2017-07-18] MEDS: Heparin 5,000 UNITS/ML VIAL SC SCH ×3 (08:41→21:23)
--- NOTE | 2017-07-18 10:33 | PRG ---
DATE OF SERVICE: 07/18/2017 SUBJECTIVE: This is a 46-year-old gentleman being seen for end-stage renal disease. Patient denies any nausea, vomiting, chest pain. PHYSICAL EXAMINATION: GENERAL: Patient is awake, alert. VITAL SIGNS: Afebrile, pulse 99, breathing 16, blood pressure is 125/64. HEAD/NECK: Normocephalic. Atraumatic. EYES: EOMI. No deformity. EARS: Clear. No ulcers. NOSE: Intact. No lesions. MOUTH: Clear. No discharge. THROAT: Clear. No exudate. LUNGS: Clear. No crackles. CARDIAC: S1, S2. No rub. ABDOMEN: Benign. BS+. GENITALIA/RECTUM: Choe absent. BACK/EXTREMITIES: Edema 0+ Ulcer- NEUROLOGICAL: Alert and motor intact. SKIN: Rash- Bruise- LYMPHATICS: Edema- Ulcer- LABORATORY DATA: Show hemoglobin is 7.7 ASSESSMENT AND RECOMMENDATIONS: 1. Stage 6 chronic kidney disease. Offered dialysis, patient declined. 2. Hypertension, stable. 3. Anemia, stable. 4. Medications based on glomerular filtration rate are appropriate.
[2017-07-18] MEDS: Guaifenesin DM 100-10/5 ML UDCUP PO PRN (12:01)
[2017-07-18] MEDS: HumaLOG 300 UNITS/3 ML VIAL SC PRN (12:02)
[2017-07-18 12:42] LABS: Vancomycin, Trough 10.3 ug/mL
[2017-07-18] MEDS: Albuterol Sulfate 1.25 MG/3 ML NEB NEB PRN (13:32)
--- NOTE | 2017-07-18 14:30 | EKG ---
Test Reason : Blood Pressure : / mmHG Vent. Rate : 097 BPM Atrial Rate : 097 BPM P-R Int : 136 ms QRS Dur : 100 ms QT Int : 430 ms P-R-T Axes : 043 -44 013 degrees QTc Int : 546 ms Normal sinus rhythm Left axis deviation Possible Anterolateral infarct , age undetermined Prolonged QT Abnormal ECG Confirmed by LUCIO MALONEY, OLIVIA ([id number]), web content editor PADILLA CARRANZA ([id number]) on 07/18/2017 2:30:14 PM Referred By: Confirmed By:OLIVIA VALDES MD
[2017-07-18] MEDS: Benzonatate 100 MG CAP PO PRN ×2 (14:57→21:23)
[2017-07-18] MEDS: Insulin Detemir 100 UNITS/ML 35 UNITS in Pre-Filled Syringe 1 EACH SC SCH (21:22)
[2017-07-19 05:38] LABS: #Eosinphils 0.4 thou/uL (0.0-0.7); #Lymphocytes 1.4 thou/uL (1.20-3.40); #Monocytes 0.6 thou/uL (0.11-0.59); #Neutrophils 6.8 thou/uL (1.40-6.50); %Basophils 0.5 % (0.0-1.0); %Monocytes 6.6 % (0.0-10.0); %Neutrophils 73.8 % (42.0-75.0); Hemoglobin 7.9 g/dL (14.0-18.0); Mean Corpuscular HGB CONC 30.1 g/dL (32.0-36.0); Mean Corpuscular Hemoglobin 25.6 pg (27.0-31.0); Mean Corpuscular Volume 84.9 fl (80.0-94.0); Mean Platelet Volume 8.5 fL (7.4-10.4); Platelet Count 166 thou/uL (130-400); RBC Distribution Width 18.5 % (11.5-14.5); Red Blood Cell (RBC) Count 3.08 mill/uL (4.70-6.10); White Blood Cell (WBC) Count 9.2 thou/uL (4.8-10.8)
[2017-07-19 06:02] LABS: Anion Gap 14 mmol/L (10-20); BUN (Urea Nitrogen) 33 mg/dL (8.9-20.6); Calc. Creatinine Clearance 27 mL/min (70-130); Calcium 8.6 mg/dL (7.8-10.44); Carbon Dioxide 25 mmol/L (22-29); Chloride 100 mmol/L (98-107); Estimated GFR-MDRD 11; Glucose 137 mg/dL (70-105); Sodium 135 mmol/L (136-145)
--- NOTE | 2017-07-19 07:49 | PDOC.FM ---
- Subjective Subjective: Patient doing well this AM. His only complaint is his cough. He reports that he got one albuterol neb yesterday and that it helped a little bit. He denies F/C, dizziness, N/V. - Objective MAR Reviewed: Yes Vital Signs & Weight: Vital Signs (12 hours) Temp Pulse Resp BP Pulse Ox 07/19/17 04:00 133/73 07/19/17 00:00 97.9 F 93 21 H 122/58 L 93 L 07/18/17 20:00 98.1 F 93 21 H 95 Weight Admit Weight 135.806 kg Weight 135.806 kg I&O: 07/18/17 07/19/17 07/20/17 06:59 06:59 06:59 Intake Total 1720 1210 Balance 1720 1210 Result Diagrams: 07/19/17 05:01 07/19/17 05:01 <Paradise Guerra - Last Filed: 07/19/17 07:47> - Objective Vital Signs & Weight: Vital Signs (12 hours) Temp Pulse Resp BP BP Pulse Ox 07/19/17 10:25 110 H 16 07/19/17 08:00 97.7 F 111 H 20 204/88 H 92 L 07/19/17 07:53 97.9 F 93 21 H 07/19/17 04:00 133/73 07/19/17 00:00 97.9 F 93 21 H 122/58 L 93 L Weight Admit Weight 135.806 kg Weight 135.806 kg I&O: 07/18/17 07/19/17 07/20/17 06:59 06:59 06:59 Intake Total 1720 1210 240 Balance 1720 1210 240 Result Diagrams: 07/19/17 05:01 07/19/17 05:01 <Tyrell Mckeon - Last Filed: 07/19/17 11:03> Phys Exam - Physical Examination Constitutional: NAD HEENT: moist MMs Respiratory: no wheezing, no rales, no rhonchi, clear to auscultation bilateral Cardiovascular: RRR, no significant murmur, no rub Gastrointestinal: soft, non-tender, no distention, positive bowel sounds Musculoskeletal: no edema, pulses present Neurological: non-focal, moves all 4 limbs Psychiatric: normal affect, A&O x 3 Skin: normal turgor, cap refill <2 seconds <Paradise Guerra - Last Filed: 07/19/17 07:47> Dx/Plan (1) Line sepsis associated with dialysis catheter Code(s): T80.218A - OTHER INFECTION DUE TO CENTRAL VENOUS CATHETER, INIT ENCNTR ; A41.9 - SEPSIS, UNSPECIFIED ORGANISM Status: Acute (2) Severe sepsis Code(s): A41.9 - SEPSIS, UNSPECIFIED ORGANISM; R65.20 - SEVERE SEPSIS WITHOUT SEPTIC SHOCK Status: Acute (3) Status post fall Code(s): Z91.81 - HISTORY OF FALLING Status: Acute (4) ESRD (end stage renal disease) Code(s): N18.6 - END STAGE RENAL DISEASE Status: Chronic (5) Diabetes mellitus type 2 in obese Code(s): E11.69 - TYPE 2 DIABETES MELLITUS WITH OTHER SPECIFIED COMPLICATION; E66.9 - OBESITY, UNSPECIFIED Status: Acute (6) Hyperlipidemia Code(s): E78.5 - HYPERLIPIDEMIA, UNSPECIFIED Status: Chronic QualifierTitle: Hyperlipidemia type: unspecified Qualified Code(s): E78.5 - Hyperlipidemia, unspecified (7) Hypertension Code(s): I10 - ESSENTIAL (PRIMARY) HYPERTENSION Status: Chronic QualifierTitle: Hypertension type: essential hypertension Qualified Code( s): I10 - Essential (primary) hypertension (8) Morbid obesity Code(s): E66.01 - MORBID (SEVERE) OBESITY DUE TO EXCESS CALORIES Status: Chronic (9) BRANDON (obstructive sleep apnea) Code(s): G47.33 - OBSTRUCTIVE SLEEP APNEA (ADULT) (PEDIATRIC) Status: Chronic (10) Peripheral 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 mellitus Code(s): E11.43 - TYPE 2 DIABETES W DIABETIC AUTONOMIC (POLY)NEUROPATHY Status : Chronic QualifierTitle: Diabetes mellitus type: type 2 Qualified Code(s): E11.43 - Type 2 diabetes mellitus with diabetic autonomic (poly)neuropathy (11) Peripheral vascular disease Code(s): I73.9 - PERIPHERAL VASCULAR DISEASE, UNSPECIFIED Status: Chronic (12) Acid reflux Code(s): K21.9 - GASTRO-ESOPHAGEAL REFLUX DISEASE WITHOUT ESOPHAGITIS Status: Chronic QualifierTitle: Esophagitis presence: esophagitis presence not specified Qualified Code(s): K21.9 - Gastro-esophageal reflux disease without esophagitis - Plan Plan: 1. Severe Sepsis This is 2/2 CABSI from the dialysis catheter vs pyelonephritis. The BCx grew out Corynebacterium x2. WBC 25.9 with 24% bands, downtrended. Lactate has improved from 2.8 to 2.1. The patient became hypotensive in the ED, but responded to 3L NS bolus. His BP has remained stable since this. Dr. Delarosa removed the catheter on 07/14. CXR showed no signs of infection. Abd/Pelvis CT showed some perinephric inflammatory changes. UA showed signs of infection The patient has continued to fever and have tachycardia and tachypnea after the catheter was removed. Zosyn was d/c'd yesterday due to isolation of the pathogen. Considering endocarditis on the differential. New dialysis catheter was placed on 07/16 as the patient's fistula could not be accessed. Repeat BCx and Line Cx have NGTD. UCx NGTD -Dr. Brower with ID has been consulted, appreciate recs -Vanc day 7, Zosyn day 7 -BCx -Line Cx -UCx -Tylenol prn fevers -Initial BCx have been sent to outside laboratory for speciation and sensitivities 2. s/p Fall The patient hit his head after his fall on 07/13. Patient not complaining of any headache or pain. -CT head revealed a possible scalp hematoma, but no intracranial abnormality -Monitor for neuro changes 3. Vertigo This is likely 2/2 BPPV, but will r/o subacute cerebellar infarct with CT head. The patient had associated N/V. This has improved -Meclizine -Zofran 4. ESRD on HD The patient sees Dr. Dhillon with nephrology and receives Dialysis on . He did not go to dialysis on 07/13 due to his dizziness and fall. -Dr. Dhillon has been consulted, appreciate recs -Patient received dialysis on 07/14, 07/16 -Dialysis catheter has been removed and an attempt was made to access his L fistula, which was unsuccessful. Dr. Delarosa placed a new dialysis catheter on 07/16. 5. DMII -Continue home levemir -SSI -Accuchecks ACHS -CC diet 6. HTN Patient has been hypotensive 2/2 sepsis -Hold home BP medications at this time and monitor 7. HLD -continue home meds 8. PVD s/p Bilateral BKA Patient is wheelchair bound. -Chair with assist -PT/OT 9. BRANDON Patient is not on CPAP and reports never being started on CPAP. -Will monitor O2 sats, especially at night 10. Acid Reflux -Continue home protonix. The acid reflux could be contributing to the patient's cough as the protonix was just recently started. 11. Diarrhea -This is likely 2/2 medications. The patient was C. diff antigen positive, but toxin negative. <Paradise Guerra - Last Filed: 07/19/17 07:47> Attending Addendum - Attending Addendum Date/Time: 07/19/17 1101 I personally evaluated the patient and discussed the management with Dr. Guerra. I agree with the History, Examination, Assessment and Plan documented above with any addition or exceptions noted below. Patient to continue on antibiotics for his bacteremia. Cultures from urine pending, but negative so far. Will touch base with ID to formalize [facility] antibiotic plan. Continues afebrile and WBC normal. <Tyrell Mckeon - Last Filed: 07/19/17 11:03>
[2017-07-19] MEDS: Heparin 5,000 UNITS/ML VIAL SC SCH ×2 (08:46→15:58)
[2017-07-19] MEDS: Gabapentin 300 MG CAP PO SCH (08:47)
[2017-07-19] MEDS: Benzonatate 100 MG CAP PO PRN (08:47)
[2017-07-19] MEDS: Atorvastatin Calcium 40 MG TAB PO SCH (08:47)
[2017-07-19] MEDS: Piperacillin/Tazobactam 2.25 GM in Sodium Chloride 0.9% 100 ML IVPB SCH (08:48)
[2017-07-19] MEDS: Fluticasone Propionate Nasal Spray 16 gm Bottle NASAL SCH (08:48)
[2017-07-19] MEDS: Acetaminophen 325 MG TAB PO PRN (08:48)
[2017-07-19] MEDS: Albuterol Sulfate 1.25 MG/3 ML NEB NEB PRN (10:25)
[2017-07-19] MEDS ORDERED: guaiFENesin/DM ER PO SCH (10:30)
[2017-07-19] MEDS ORDERED: Heparin 1,000 UNITS/ML VIAL ONE (11:11)
[2017-07-19] MEDS: HumaLOG 300 UNITS/3 ML VIAL SC PRN ×2 (11:38→16:04)
--- NOTE | 2017-07-19 12:27 | PDOC.EVN ---
Event Note - Event Note Event Note: Was paged by nursing staff at around 1215 about patient having difficulty breathing. Initial O2 sats were 68% on RA and temp of 100.3. Patient was put on 3L NC and sats improved to 98%. Myself and Dr. Patel evaluated patient. Patient AOx3, but having increased work of breathing. Auscultation of lungs reveal ronchi at lung bases L>R. Patient refused dialysis yesterday. CXR ordered. Dr. Dhillon, stopper maker helper, made aware of the situation. This sounds like a volume overload picture at this time. Patient is on broad spectrum antibiotics for presumed dialysis catheter infection. Will await CXR results and keep patient on 3L oxygen at this time and pending Dr. Perez recommendation , patient may need dialysis today.
[2017-07-19] MEDS ORDERED: Furosemide 40 MG/4 ML VIAL SLOW IVP SCH (13:15)
--- NOTE | 2017-07-19 13:32 | RAD ---
AP VIEW OF THE CHEST: INDICATION: Hypoxia. COMPARISON: Prior exam dated 07/16/17. FINDINGS: Dialysis catheter is unchanged. Cardiomegaly with pulmonary vascular congestion is present. The pul monary vascular congestion is more prominent than on the comparison exam. No pleural effusion or pne umothorax is evident. IMPRESSION: Worsening volume overload or congestive heart failure. There is cardiomegaly and worsening pulmonary vascular congestion when compared to the most recent comparison study 07/16/17. POS: PAOLA
--- NOTE | 2017-07-19 13:56 | PRG ---
DATE OF SERVICE: 07/19/2017 SUBJECTIVE: This is a 46-year-old gentleman being seen for end-stage renal disease. Patient complai ns of dyspnea today and was started on oxygen. The patient had refused dialysis over the last 2 days . PHYSICAL EXAMINATION: GENERAL: Patient is resting and afebrile. VITAL SIGNS: Temperature 100, pulse 111, blood pressure 118/56. HEAD/NECK: Normocephalic. Atraumatic. EYES: EOMI. No deformity. EARS: Clear. No ulcers. NOSE: Intact. No lesions. MOUTH: Clear. No discharge. THROAT: Clear. No exudate. LUNGS: Clear. No crackles. CARDIAC: S1, S2. No rub. ABDOMEN: Benign. BS+. GENITALIA/RECTUM: Choe absent. BACK/EXTREMITIES: Edema 0+ Ulcer- NEUROLOGICAL: Alert and motor intact. SKIN: Rash- Bruise- LYMPHATICS: Edema- Ulcer- LABORATORY DATA: Show hemoglobin 7.9. ASSESSMENT AND RECOMMENDATIONS: 1. Stage 6 chronic kidney disease with congestive heart failure. Plan dialysis today. 2. Noncompliance. 3. Anemia, stable. 4. Medications based on glomerular filtration rate are appropriate. Overall, prognosis is extremely poor.
[2017-07-19 20:49] LABS: Vancomycin, Trough 8.2 ug/mL
[2017-07-20] MEDS: guaiFENesin/DM ER PO SCH ×3 (01:44→23:23)
[2017-07-20] MEDS: Heparin 5,000 UNITS/ML VIAL SC SCH ×4 (01:47→23:12)
[2017-07-20] MEDS: Piperacillin/Tazobactam 2.25 GM in Sodium Chloride 0.9% 100 ML IVPB SCH ×2 (01:48→09:24)
[2017-07-20] MEDS: Insulin Detemir 100 UNITS/ML 35 UNITS in Pre-Filled Syringe 1 EACH SC SCH ×2 (01:50→23:11)
[2017-07-20] MEDS: HumaLOG 300 UNITS/3 ML VIAL SC PRN ×3 (06:50→17:47)
--- NOTE | 2017-07-20 09:12 | PDOC.FM ---
- Subjective Subjective: The patient reports that he is feeling a lot better today from a breathing standpoint after dialysis. He is no longer as SOB, but is still on O2. He feels like his cough is improving. He is still having loose stools. He denies N/V, CP. - Objective MAR Reviewed: Yes Vital Signs & Weight: Vital Signs (12 hours) Temp Pulse Resp BP BP Pulse Ox 07/20/17 08:00 99.5 F 104 H 18 139/63 100 07/20/17 00:00 99.1 F 100 22 H 121/57 L 93 L Weight Admit Weight 135.806 kg Weight 61.887 kg I&O: 07/19/17 07/20/17 07/21/17 06:59 06:59 06:59 Intake Total 1210 1665 Output Total 100 Balance 1210 1565 Result Diagrams: 07/19/17 05:01 07/19/17 05:01 <Paradise Guerra - Last Filed: 07/20/17 09:10> - Objective Vital Signs & Weight: Vital Signs (12 hours) Temp Pulse Pulse Resp BP BP Pulse Ox 07/20/17 13:21 101 H 80/51 L 07/20/17 12:00 99.2 F 96 20 126/65 95 07/20/17 08:00 99.5 F 104 H 18 139/63 100 Pulse Ox 07/20/17 13:21 97 07/20/17 12:00 07/20/17 08:00 Weight Admit Weight 135.806 kg Weight 61.887 kg I&O: 07/19/17 07/20/17 07/21/17 06:59 06:59 06:59 Intake Total 1210 1665 480 Output Total 100 Balance 1210 1565 480 Result Diagrams: 07/20/17 08:31 07/20/17 08:31 <Perico West - Last Filed: 07/20/17 15:43> Phys Exam - Physical Examination Constitutional: NAD HEENT: moist MMs Respiratory: no wheezing, no rales, no rhonchi, clear to auscultation bilateral Cardiovascular: RRR, no significant murmur, no rub Gastrointestinal: soft, non-tender, no distention, positive bowel sounds Musculoskeletal: no edema, pulses present Bilateral BKA Neurological: non-focal, moves all 4 limbs <Paradise Guerra - Last Filed: 07/20/17 09:10> Dx/Plan (1) Line sepsis associated with dialysis catheter Code(s): T80.218A - OTHER INFECTION DUE TO CENTRAL VENOUS CATHETER, INIT ENCNTR ; A41.9 - SEPSIS, UNSPECIFIED ORGANISM Status: Acute (2) Severe sepsis Code(s): A41.9 - SEPSIS, UNSPECIFIED ORGANISM; R65.20 - SEVERE SEPSIS WITHOUT SEPTIC SHOCK Status: Acute (3) Status post fall Code(s): Z91.81 - HISTORY OF FALLING Status: Acute (4) ESRD (end stage renal disease) Code(s): N18.6 - END STAGE RENAL DISEASE Status: Chronic (5) Diabetes mellitus type 2 in obese Code(s): E11.69 - TYPE 2 DIABETES MELLITUS WITH OTHER SPECIFIED COMPLICATION; E66.9 - OBESITY, UNSPECIFIED Status: Acute (6) Hyperlipidemia Code(s): E78.5 - HYPERLIPIDEMIA, UNSPECIFIED Status: Chronic QualifierTitle: Hyperlipidemia type: unspecified Qualified Code(s): E78.5 - Hyperlipidemia, unspecified (7) Hypertension Code(s): I10 - ESSENTIAL (PRIMARY) HYPERTENSION Status: Chronic QualifierTitle: Hypertension type: essential hypertension Qualified Code( s): I10 - Essential (primary) hypertension (8) Morbid obesity Code(s): E66.01 - MORBID (SEVERE) OBESITY DUE TO EXCESS CALORIES Status: Chronic (9) BRANDON (obstructive sleep apnea) Code(s): G47.33 - OBSTRUCTIVE SLEEP APNEA (ADULT) (PEDIATRIC) Status: Chronic (10) Peripheral 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 mellitus Code(s): E11.43 - TYPE 2 DIABETES W DIABETIC AUTONOMIC (POLY)NEUROPATHY Status : Chronic QualifierTitle: Diabetes mellitus type: type 2 Qualified Code(s): E11.43 - Type 2 diabetes mellitus with diabetic autonomic (poly)neuropathy (11) Peripheral vascular disease Code(s): I73.9 - PERIPHERAL VASCULAR DISEASE, UNSPECIFIED Status: Chronic (12) Acid reflux Code(s): K21.9 - GASTRO-ESOPHAGEAL REFLUX DISEASE WITHOUT ESOPHAGITIS Status: Chronic QualifierTitle: Esophagitis presence: esophagitis presence not specified Qualified Code(s): K21.9 - Gastro-esophageal reflux disease without esophagitis - Plan Plan: 1. Severe Sepsis This is 2/2 CABSI from the dialysis catheter vs pyelonephritis. The BCx grew out Corynebacterium x2. WBC 25.9 with 24% bands, downtrended. Lactate has improved from 2.8 to 2.1. The patient became hypotensive in the ED, but responded to 3L NS bolus. His BP has remained stable since this. Dr. Delarosa removed the catheter on 07/14. CXR showed no signs of infection. Abd/Pelvis CT showed some perinephric inflammatory changes. UA showed signs of infection The patient has continued to fever and have tachycardia and tachypnea after the catheter was removed. New dialysis catheter was placed on 07/16 as the patient's fistula could not be accessed. Repeat BCx and Line Cx have NGTD. UCx NGTD -Dr. Brower with ID has been consulted, appreciate recs -Vanc day 8, Zosyn day 8 -BCx -Line Cx -UCx -Tylenol prn fevers -Initial BCx have been sent to outside laboratory for speciation and sensitivities 2. s/p Fall The patient hit his head after his fall on 07/13. Patient not complaining of any headache or pain. -CT head revealed a possible scalp hematoma, but no intracranial abnormality -Monitor for neuro changes 3. Vertigo This is likely 2/2 BPPV, but will r/o subacute cerebellar infarct with CT head. The patient had associated N/V. This has improved -Meclizine -Zofran 4. ESRD on HD The patient sees Dr. Dhillon with nephrology and receives Dialysis on . He did not go to dialysis on 07/13 due to his dizziness and fall. The patient got fluid overloaded on 07/19 and got SOB due to refusing dialysis the two days prior. Received dialysis and improved after this. -Dr. Dhillon has been consulted, appreciate recs -Patient received dialysis on 07/14, 07/16, 07/19 -Dialysis catheter has been removed and an attempt was made to access his L fistula, which was unsuccessful. Dr. Delarosa placed a new dialysis catheter on 07/16. 5. DMII -Continue home levemir -SSI -Accuchecks ACHS -CC diet 6. HTN Patient has been hypotensive 2/2 sepsis -Hold home BP medications at this time and monitor 7. HLD -continue home meds 8. PVD s/p Bilateral BKA Patient is wheelchair bound. -Chair with assist -PT/OT 9. BRANDON Patient is not on CPAP and reports never being started on CPAP. -Will monitor O2 sats, especially at night 10. Acid Reflux -Continue home protonix. The acid reflux could be contributing to the patient's cough as the protonix was just recently started. 11. Diarrhea -This is likely 2/2 medications. The patient was C. diff antigen positive, but toxin negative. <Paradise Guerra - Last Filed: 07/20/17 09:10> Attending Addendum - Attending Addendum Date/Time: 07/20/17 9730 I personally evaluated the patient and discussed the management with Dr. Guerra. I agree with the History, Examination, Assessment and Plan documented above with any addition or exceptions noted below. <Perico West - Last Filed: 07/20/17 15:43>
[2017-07-20 09:19] LABS: Anion Gap 15 mmol/L (10-20); BUN (Urea Nitrogen) 25 mg/dL (8.9-20.6); Calc. Creatinine Clearance 19 mL/min (70-130); Calcium 8.8 mg/dL (7.8-10.44); Carbon Dioxide 25 mmol/L (22-29); Chloride 100 mmol/L (98-107); Estimated GFR-MDRD 18; Glucose 200 mg/dL (70-105); Potassium 3.7 mmol/L (3.5-5.1); Sodium 136 mmol/L (136-145)
[2017-07-20] MEDS: Fluticasone Propionate Nasal Spray 16 gm Bottle NASAL SCH (09:24)
[2017-07-20] MEDS: Atorvastatin Calcium 40 MG TAB PO SCH (09:25)
[2017-07-20] MEDS: Gabapentin 300 MG CAP PO SCH (09:25)
[2017-07-20 09:40] LABS: #Eosinphils 0.4 thou/uL (0.0-0.7); #Lymphocytes 1.3 thou/uL (1.20-3.40); #Monocytes 0.9 thou/uL (0.11-0.59); #Neutrophils 10.3 thou/uL (1.40-6.50); %Basophils 0.1 % (0.0-1.0); %Eosinophils 3.2 % (0.0-10.0); %Lymphocytes 9.7 % (21.0-51.0); %Monocytes 6.8 % (0.0-10.0); %Neutrophils 80.2 % (42.0-75.0); Hemoglobin 7.6 g/dL (14.0-18.0); Hypochromia SLIGHT = 6-15 cells (100X) (0-5/hpf); MDiff Complete? YES; Mean Corpuscular HGB CONC 30.8 g/dL (32.0-36.0); Mean Corpuscular Volume 84.6 fl (80.0-94.0); PLT Morphology Comment Appears Decreased; Platelet Count 92 thou/uL (130-400); Polychromasia SLIGHT = 2-3 cells (100X) (0-2/hpf); RBC Distribution Width 19.1 % (11.5-14.5); White Blood Cell (WBC) Count 12.8 thou/uL (4.8-10.8)
--- NOTE | 2017-07-20 10:58 | PRG ---
Patient Name: RIDDHI ACOSTA Date of service: 07/20/2017 Subjective: Patient was seen and examined at bedside and overnight events noted. Patient had shortness of breath yesterday and last night and had dialysis. The plan is to have dialy sis today. No history of nausea or vomiting or diarrhea or fever or chills or cramps. He still rem ains hypoxic, but cyanosis was seen and plan discussed. Objective: General: This is a morbidly obese male in mild distress Vital signs: Temperature 98.5, pulse 104, respiratory rate 18, blood pressure 139/63. HEENT: Atraumatic, normocephalic. Oral mucosa is moist. Neck: Supple. Cardiovascular: S1 S2 heard. Rate and rhythm regular. Respiratory: Clear to auscultation. Gastrointestinal: Abdomen is soft. Musculoskeletal: No tenderness, 1+ edema. Dermatologic: No skin rash. Neurologic: Alert and awake and oriented X3. No focal neurologic deficits. Moving all the extremit ies. Psychiatric: Mood and affect normal. LABORATORY DATA: Potassium 3.7, BUN 75, creatinine is 4.20. ASSESSMENT AND PLAN: 1. End-stage renal disease. Plan is to have dialysis today and then continue dialysis as tolerated. 2. Fluid overload. Have fluid restriction. 3. Edema, controlled. 4. Cardiorenal syndrome. 5. Anemia. The plan is to have on 1.5 fluid restriction. Continue dialysis as tolerated.
[2017-07-21 06:07] LABS: Anion Gap 13 mmol/L (10-20); BUN (Urea Nitrogen) 19 mg/dL (8.9-20.6); Calc. Creatinine Clearance 23 mL/min (70-130); Calcium 8.7 mg/dL (7.8-10.44); Carbon Dioxide 28 mmol/L (22-29); Chloride 101 mmol/L (98-107); Estimated GFR-MDRD 22; Glucose 157 mg/dL (70-105); Potassium 3.5 mmol/L (3.5-5.1); Sodium 138 mmol/L (136-145)
[2017-07-21 06:08] LABS: #Eosinphils 0.4 thou/uL (0.0-0.7); #Lymphocytes 1.4 thou/uL (1.20-3.40); #Neutrophils 7.4 thou/uL (1.40-6.50); %Basophils 0.3 % (0.0-1.0); %Eosinophils 3.6 % (0.0-10.0); %Lymphocytes 13.7 % (21.0-51.0); %Monocytes 10.2 % (0.0-10.0); %Neutrophils 72.2 % (42.0-75.0); Hemoglobin 7.1 g/dL (14.0-18.0); Mean Corpuscular Hemoglobin 26.2 pg (27.0-31.0); Mean Corpuscular Volume 84.4 fl (80.0-94.0); Mean Platelet Volume 9.7 fL (7.4-10.4); Platelet Count 117 thou/uL (130-400); Red Blood Cell (RBC) Count 2.71 mill/uL (4.70-6.10); White Blood Cell (WBC) Count 10.2 thou/uL (4.8-10.8)
--- NOTE | 2017-07-21 07:56 | PDOC.FM ---
- Subjective Subjective: Patient reports that his breathing had improved overnight and he was off oxygen most of the night until they put him back on it around 4:30AM due to an O2 sat of 86%. The patient denies any SOB during this time. He reports that his only concern is still his cough. He got dialysis yesterday evening. He denies any chest pain, fevers, N/V. - Objective MAR Reviewed: Yes Vital Signs & Weight: Vital Signs (12 hours) Temp Pulse Resp BP BP Pulse Ox 07/21/17 07:50 99.4 F 89 28 H 129/64 93 L 07/21/17 04:00 99.9 F H 105 H 20 128/62 07/21/17 00:25 98.6 F 101 H 20 125/59 L 94 L 07/20/17 22:30 98.6 F 101 H 20 94 L Weight Admit Weight 135.806 kg Weight 61.887 kg I&O: 07/20/17 07/21/17 07/22/17 06:59 06:59 06:59 Intake Total 1665 1415 Output Total 100 Balance 1565 1415 Result Diagrams: 07/21/17 05:04 07/21/17 05:04 <Paradise Guerra - Last Filed: 07/21/17 12:00> - Objective Vital Signs & Weight: Vital Signs (12 hours) Temp Pulse Pulse Pulse Resp BP BP 07/21/17 15:40 111 H 108 H 139/81 141/75 H 07/21/17 15:15 99.3 F 106 H 20 07/21/17 12:00 98.6 F 101 H 20 07/21/17 07:50 99.4 F 89 28 H 07/21/17 07:30 99.4 F 89 28 H BP Pulse Ox 07/21/17 15:40 07/21/17 15:15 150/76 H 93 L 07/21/17 12:00 137/62 91 L 07/21/17 07:50 129/64 93 L 07/21/17 07:30 94 L Weight Admit Weight 135.806 kg Weight 133.81 kg I&O: 07/20/17 07/21/17 07/22/17 06:59 06:59 06:59 Intake Total 1665 1655 600 Output Total 100 200 150 Balance 1565 1455 450 Result Diagrams: 07/21/17 05:04 07/21/17 05:04 <BrettPerico shields Genevieve - Last Filed: 07/21/17 16:42> Phys Exam - Physical Examination Constitutional: NAD (on 2L O2) HEENT: moist MMs Respiratory: no wheezing, no rales, no rhonchi, clear to auscultation bilateral Cardiovascular: RRR, no significant murmur, no rub Gastrointestinal: soft, non-tender, no distention, positive bowel sounds Musculoskeletal: pulses present, edema present (trace) Neurological: non-focal, moves all 4 limbs Psychiatric: normal affect, A&O x 3 Skin: normal turgor, cap refill <2 seconds <Paradise Guerra - Last Filed: 07/21/17 12:00> Dx/Plan (1) Line sepsis associated with dialysis catheter Code(s): T80.218A - OTHER INFECTION DUE TO CENTRAL VENOUS CATHETER, INIT ENCNTR ; A41.9 - SEPSIS, UNSPECIFIED ORGANISM Status: Acute (2) Severe sepsis Code(s): A41.9 - SEPSIS, UNSPECIFIED ORGANISM; R65.20 - SEVERE SEPSIS WITHOUT SEPTIC SHOCK Status: Acute (3) Status post fall Code(s): Z91.81 - HISTORY OF FALLING Status: Acute (4) ESRD (end stage renal disease) Code(s): N18.6 - END STAGE RENAL DISEASE Status: Chronic (5) Diabetes mellitus type 2 in obese Code(s): E11.69 - TYPE 2 DIABETES MELLITUS WITH OTHER SPECIFIED COMPLICATION; E66.9 - OBESITY, UNSPECIFIED Status: Acute (6) Hyperlipidemia Code(s): E78.5 - HYPERLIPIDEMIA, UNSPECIFIED Status: Chronic QualifierTitle: Hyperlipidemia type: unspecified Qualified Code(s): E78.5 - Hyperlipidemia, unspecified (7) Hypertension Code(s): I10 - ESSENTIAL (PRIMARY) HYPERTENSION Status: Chronic QualifierTitle: Hypertension type: essential hypertension Qualified Code( s): I10 - Essential (primary) hypertension (8) Morbid obesity Code(s): E66.01 - MORBID (SEVERE) OBESITY DUE TO EXCESS CALORIES Status: Chronic (9) BRANDON (obstructive sleep apnea) Code(s): G47.33 - OBSTRUCTIVE SLEEP APNEA (ADULT) (PEDIATRIC) Status: Chronic (10) Peripheral 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 mellitus Code(s): E11.43 - TYPE 2 DIABETES W DIABETIC AUTONOMIC (POLY)NEUROPATHY Status : Chronic QualifierTitle: Diabetes mellitus type: type 2 Qualified Code(s): E11.43 - Type 2 diabetes mellitus with diabetic autonomic (poly)neuropathy (11) Peripheral vascular disease Code(s): I73.9 - PERIPHERAL VASCULAR DISEASE, UNSPECIFIED Status: Chronic (12) Acid reflux Code(s): K21.9 - GASTRO-ESOPHAGEAL REFLUX DISEASE WITHOUT ESOPHAGITIS Status: Chronic QualifierTitle: Esophagitis presence: esophagitis presence not specified Qualified Code(s): K21.9 - Gastro-esophageal reflux disease without esophagitis - Plan Plan: 1. Severe Sepsis This is 2/2 CABSI from the dialysis catheter vs pyelonephritis. The BCx grew out Corynebacterium x2. WBC 25.9 with 24% bands, downtrended. Lactate has improved from 2.8 to 2.1. The patient became hypotensive in the ED, but responded to 3L NS bolus. His BP has remained stable since this. Dr. Delarosa removed the catheter on 07/14. CXR showed no signs of infection. Abd/Pelvis CT showed some perinephric inflammatory changes. UA showed signs of infection The patient has continued to fever and have tachycardia and tachypnea after the catheter was removed. New dialysis catheter was placed on 07/16 as the patient's fistula could not be accessed. Repeat BCx and Line Cx have NGTD. UCx NGTD. Initial BCx have been sent to outside laboratory for speciation and sensitivities s/p 7 days of vanc and zosyn -Dr. Brower with ID has been consulted, appreciate recs -Levaquin day 2 -Tylenol prn fevers 2. s/p Fall The patient hit his head after his fall on 07/13. Patient not complaining of any headache or pain. -CT head revealed a possible scalp hematoma, but no intracranial abnormality -Monitor for neuro changes 3. Vertigo (resolved) This is likely 2/2 BPPV, but will r/o subacute cerebellar infarct with CT head. The patient had associated N/V. This has improved. -Meclizine -Zofran 4. ESRD on HD The patient sees Dr. Dhillon with nephrology and receives Dialysis on . He did not go to dialysis on 07/13 due to his dizziness and fall. The patient got fluid overloaded on 07/19 and got SOB due to refusing dialysis the two days prior. Received dialysis and improved after this. -Dr. Dhillon has been consulted, appreciate recs -Patient received dialysis on 07/14, 07/16, 07/19, 07/20 -Dialysis catheter has been removed and an attempt was made to access his L fistula, which was unsuccessful. Dr. Delarosa placed a new dialysis catheter on 07/16. -Restarted Torsemide now that patient's BP has improved 5. DMII -Continue home levemir -SSI -Accuchecks ACHS, glucose has been at goal -CC diet 6. HLD -continue home meds 7. PVD s/p Bilateral BKA Patient is wheelchair bound. -Chair with assist -PT/OT 8. BRANDON Patient is not on CPAP and reports never being started on CPAP. -Will start pt on CPAP at night -Will attempt to obtain records from prior sleep study and see if it is possible to arrange for CPAP at home since patient's O2 keeps dropping at night 9. Acid Reflux -Continue home protonix. The acid reflux could be contributing to the patient's cough as the protonix was just recently started. 10. Diarrhea -This is likely 2/2 medications. The patient was C. diff antigen positive, but toxin negative. <Paradise Guerra - Last Filed: 07/21/17 12:00> Attending Addendum - Attending Addendum Date/Time: 07/21/17 1642 I personally evaluated the patient and discussed the management with Dr. Guerra. I agree with the History, Examination, Assessment and Plan documented above with any addition or exceptions noted below. <Perico West - Last Filed: 07/21/17 16:42>
[2017-07-21] MEDS ORDERED: Torsemide 100 MG TAB PO SCH (09:00)
[2017-07-21] MEDS: Gabapentin 300 MG CAP PO SCH (09:20)
[2017-07-21] MEDS: Atorvastatin Calcium 40 MG TAB PO SCH (09:20)
[2017-07-21] MEDS: Fluticasone Propionate Nasal Spray 16 gm Bottle NASAL SCH (09:20)
[2017-07-21] MEDS: guaiFENesin/DM ER PO SCH ×2 (09:21→22:01)
[2017-07-21] MEDS: Torsemide 100 MG TAB PO SCH (09:21)
[2017-07-21] MEDS: Heparin 5,000 UNITS/ML VIAL SC SCH ×3 (09:21→22:01)
[2017-07-21 10:56] VITALS: BMI 41.1
--- NOTE | 2017-07-21 12:25 | PQF ---
CLINICAL DOCUMENTATION IMPROVEMENT CLARIFICATION FORM: ICD-10 Updated PLEASE DO AN ADDENDUM TO THE PROGRESS NOTE WITH ANY DOCUMENTATION UPDATES OR ADDITIONS AND CARRY THROUGH TO DC SUMMARY. THANK YOU. DATE: 07/21/17 ATTN: Dr. Guerra/ Attending Dr. West Please exercise your independent, professional judgment in responding to the clarification form. Clinical indicators are provided on the bottom of this form for your review Please check appropriate box(s): [ ] Acute Respiratory Failure: [ ] with Hypoxia [ ] with Hypercapnia [ x] Acute On Chronic Respiratory Failure: [ x ] with Hypoxia [ ] with Hypercapnia [ ] Acute Respiratory Failure due to: (etiology) [ ] Chronic Respiratory Failure only [ ] with Hypoxia [ ] with Hypercapnia [ ] Other diagnosis [ ] Unable to determine In addition, please specify: Present on Admission (POA): [ ] Yes [ x ] No [ ] Unable to determine For continuity of documentation, please document condition throughout progress notes and discharge summary. Thank You. CLINICAL INDICATORS - SIGNS / SYMPTOMS / LABS EVENT NOTE 07/19 @ 1227: PT HAVING DIFFICULTY BREATHING. INITIAL O2 SATS WERE 68% ON RA & TEMP OF 100.3. PT PUT ON 3L NC & SATS IMPROVED TO 98%. . INCREASED WORK OF BREATHING. AUSCULTATION OF LUNGS REVEAL RONCHI AT LUNG BASES L>R. CHEST XRY 07/19: THERE IS CARDIOMEGALY & WORSENING PULMONARY VASCULAR CONGESTION WHEN COMPARED TO STUDY 07/16/17. PN 07/20: PT GOT FLUID OVERLOAD ON 07/19 & GOT SOB D/T REFUSING DIALYSIS THE 2 DAYS PRIOR. PN 07/21: HE WAS OFF OXYGEN MOST OF THE NIGHT UNTIL THEY PUT HIM BACK ON IT AROUND 4:30 AM D/T AN O2 SAT OF 86%. RISKS: H&P: SEVERE SEPSIS; ESRD. DM 2, HTN, MORBID OBESITY. BRANDON. TREATMENT: CPOE 07/21: RESP: CPAP/BIPAP ADULT PN 07/21: PT RECEIVED DIALYSIS ON 07/14, 07/16, 07/19, 07/20. Thank you, Marisol (This form is maintained as a part of the permanent medical record) 2014 [employer]. All Rights Reserved Marisol Cormier, RN, BSN [email or web address] Office: [phone] HERLINDA
[2017-07-21] MEDS: HumaLOG 300 UNITS/3 ML VIAL SC PRN (17:06)
--- NOTE | 2017-07-21 17:17 | PRG ---
DATE OF SERVICE: 07/21/2017 SUBJECTIVE: Patient was seen and examined at bedside and overnight events noted. Patient denies any shortness of breath or chest pain or palpitation. No history of nausea or vomiting or diarrhea or f ever or chills or cramps. OBJECTIVE: GENERAL: This is an obese male in no apparent distress. VITAL SIGNS: Temperature 98.3, pulse 106, respiratory 20, blood pressure 150/76. HEENT: Atraumatic, normocephalic. Oral mucosa is moist. NECK: Supple. CARDIOVASCULAR: S1, S2 heard. Rate and rhythm regular. RESPIRATORY: Clear to auscultation. GASTROINTESTINAL: Abdomen is soft. MUSCULOSKELETAL: No tenderness. No edema. DERMATOLOGIC: No skin rash. NEUROLOGIC: Alert and awake and oriented x3. No focal neurologic deficits. Moving all the extremit ies. PSYCHIATRIC: Mood and affect normal. LABORATORY DATA: Potassium is 3.5, BUN is 19, creatinine is 3.5. ASSESSMENT AND PLAN: 1. End-stage renal disease. Continue on hemodialysis, tolerated. 2. Edema. 3. Cardiorenal syndrome. 4. Hypoxic respiratory failure, better. 5. Morbid obesity. 6. Hypertension. 7. Anemia. Plan is to continue on dialysis as tolerated. We will continue dialysis Thursday, Thursday, and y if tolerated.
[2017-07-21] MEDS: Insulin Detemir 100 UNITS/ML 35 UNITS in Pre-Filled Syringe 1 EACH SC SCH (22:03)
[2017-07-22 04:43] LABS: #Eosinphils 0.3 thou/uL (0.0-0.7); #Lymphocytes 1.6 thou/uL (1.20-3.40); #Monocytes 1.1 thou/uL (0.11-0.59); #Neutrophils 7.1 thou/uL (1.40-6.50); %Basophils 0.2 % (0.0-1.0); %Eosinophils 2.9 % (0.0-10.0); %Lymphocytes 15.6 % (21.0-51.0); %Monocytes 10.6 % (0.0-10.0); %Neutrophils 70.8 % (42.0-75.0); Hemoglobin 7.1 g/dL (14.0-18.0); Mean Corpuscular HGB CONC 30.6 g/dL (32.0-36.0); Mean Corpuscular Hemoglobin 26.1 pg (27.0-31.0); Mean Corpuscular Volume 85.2 fl (80.0-94.0); Mean Platelet Volume 8.4 fL (7.4-10.4); Platelet Count 147 thou/uL (130-400); RBC Distribution Width 18.5 % (11.5-14.5); Red Blood Cell (RBC) Count 2.71 mill/uL (4.70-6.10)
[2017-07-22 04:48] LABS: Anion Gap 14 mmol/L (10-20); BUN (Urea Nitrogen) 31 mg/dL (8.9-20.6); Calc. Creatinine Clearance 35 mL/min (70-130); Calcium 9.1 mg/dL (7.8-10.44); Carbon Dioxide 28 mmol/L (22-29); Chloride 99 mmol/L (98-107); Estimated GFR-MDRD 15; Glucose 206 mg/dL (70-105); Potassium 3.5 mmol/L (3.5-5.1); Sodium 137 mmol/L (136-145)
[2017-07-22] MEDS: HumaLOG 300 UNITS/3 ML VIAL SC PRN (05:12)
[2017-07-22] MEDS: Torsemide 100 MG TAB PO SCH (08:20)
[2017-07-22] MEDS: guaiFENesin/DM ER PO SCH ×2 (08:21→20:57)
[2017-07-22] MEDS: Gabapentin 300 MG CAP PO SCH (08:21)
[2017-07-22] MEDS: Heparin 5,000 UNITS/ML VIAL SC SCH ×3 (08:22→20:57)
[2017-07-22] MEDS: Fluticasone Propionate Nasal Spray 16 gm Bottle NASAL SCH (08:30)
[2017-07-22] MEDS: Atorvastatin Calcium 40 MG TAB PO SCH (08:31)
--- NOTE | 2017-07-22 08:55 | PDOC.FM ---
- Subjective Subjective: Patient doing well this AM. He reports that he only wore the BiPAP for about 2.5 -3 hours last night and he didn't like the way it felt, so he didn't use it the rest of the night. Denies chest pain, SOB. - Objective MAR Reviewed: Yes Vital Signs & Weight: Vital Signs (12 hours) Temp Pulse Resp BP Pulse Ox 07/22/17 08:11 98.6 F 103 H 20 116/82 90 L 07/22/17 01:43 98.6 F 103 H 18 107/71 94 L 07/22/17 00:30 98.8 F 102 H 16 129/70 99 07/21/17 22:30 103 H 22 H 98 Weight Admit Weight 135.806 kg Weight 134.223 kg I&O: 07/21/17 07/22/17 07/23/17 06:59 06:59 06:59 Intake Total 1655 1300 Output Total 200 250 Balance 1455 1050 Result Diagrams: 07/22/17 03:29 07/22/17 03:29 <Paradise Guerra - Last Filed: 07/22/17 08:52> - Objective Vital Signs & Weight: Vital Signs (12 hours) Temp Pulse Resp BP Pulse Ox 07/22/17 08:11 98.6 F 103 H 20 116/82 90 L 07/22/17 08:00 98.6 F 103 H 20 Weight Admit Weight 135.806 kg Weight 134.223 kg I&O: 07/21/17 07/22/17 07/23/17 06:59 06:59 06:59 Intake Total 1655 1300 240 Output Total 200 250 450 Balance 1455 1050 -210 Result Diagrams: 07/22/17 03:29 07/22/17 03:29 <Perico West - Last Filed: 07/22/17 17:10> Phys Exam - Physical Examination Constitutional: NAD HEENT: moist MMs Respiratory: no wheezing, no rhonchi rales present Cardiovascular: RRR, no significant murmur, no rub Gastrointestinal: soft, non-tender, no distention, positive bowel sounds Musculoskeletal: no edema, pulses present Neurological: non-focal, moves all 4 limbs Psychiatric: normal affect, A&O x 3 <Paradise Guerra - Last Filed: 07/22/17 08:52> Dx/Plan (1) Line sepsis associated with dialysis catheter Code(s): T80.218A - OTHER INFECTION DUE TO CENTRAL VENOUS CATHETER, INIT ENCNTR ; A41.9 - SEPSIS, UNSPECIFIED ORGANISM Status: Acute (2) Severe sepsis Code(s): A41.9 - SEPSIS, UNSPECIFIED ORGANISM; R65.20 - SEVERE SEPSIS WITHOUT SEPTIC SHOCK Status: Acute (3) Status post fall Code(s): Z91.81 - HISTORY OF FALLING Status: Acute (4) ESRD (end stage renal disease) Code(s): N18.6 - END STAGE RENAL DISEASE Status: Chronic (5) Diabetes mellitus type 2 in obese Code(s): E11.69 - TYPE 2 DIABETES MELLITUS WITH OTHER SPECIFIED COMPLICATION; E66.9 - OBESITY, UNSPECIFIED Status: Acute (6) Hyperlipidemia Code(s): E78.5 - HYPERLIPIDEMIA, UNSPECIFIED Status: Chronic QualifierTitle: Hyperlipidemia type: unspecified Qualified Code(s): E78.5 - Hyperlipidemia, unspecified (7) Hypertension Code(s): I10 - ESSENTIAL (PRIMARY) HYPERTENSION Status: Chronic QualifierTitle: Hypertension type: essential hypertension Qualified Code( s): I10 - Essential (primary) hypertension (8) Morbid obesity Code(s): E66.01 - MORBID (SEVERE) OBESITY DUE TO EXCESS CALORIES Status: Chronic (9) BRANDON (obstructive sleep apnea) Code(s): G47.33 - OBSTRUCTIVE SLEEP APNEA (ADULT) (PEDIATRIC) Status: Chronic (10) Peripheral 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 mellitus Code(s): E11.43 - TYPE 2 DIABETES W DIABETIC AUTONOMIC (POLY)NEUROPATHY Status : Chronic QualifierTitle: Diabetes mellitus type: type 2 Qualified Code(s): E11.43 - Type 2 diabetes mellitus with diabetic autonomic (poly)neuropathy (11) Peripheral vascular disease Code(s): I73.9 - PERIPHERAL VASCULAR DISEASE, UNSPECIFIED Status: Chronic (12) Acid reflux Code(s): K21.9 - GASTRO-ESOPHAGEAL REFLUX DISEASE WITHOUT ESOPHAGITIS Status: Chronic QualifierTitle: Esophagitis presence: esophagitis presence not specified Qualified Code(s): K21.9 - Gastro-esophageal reflux disease without esophagitis (13) Acute on chronic respiratory failure with hypoxia Code(s): J96.21 - ACUTE AND CHRONIC RESPIRATORY FAILURE WITH HYPOXIA Status: Acute - Plan Plan: 1. Severe Sepsis This is 2/2 CABSI from the dialysis catheter vs pyelonephritis. The BCx grew out Corynebacterium x2. WBC 25.9 with 24% bands, downtrended. Lactate has improved from 2.8 to 2.1. The patient became hypotensive in the ED, but responded to 3L NS bolus. His BP has remained stable since this. Dr. Delarosa removed the catheter on 07/14. CXR showed no signs of infection. Abd/Pelvis CT showed some perinephric inflammatory changes. UA showed signs of infection The patient has continued to fever and have tachycardia and tachypnea after the catheter was removed. New dialysis catheter was placed on 07/16 as the patient's fistula could not be accessed. Repeat BCx and Line Cx have NGTD. UCx NGTD. Initial BCx have been sent to outside laboratory for speciation and sensitivities s/p 7 days of vanc and zosyn -Dr. Brower with ID has been consulted, appreciate recs -Levaquin day 3 -Tylenol prn fevers 2. Acute on Chronic Hypoxic Respiratory Failure Patient has BRANDON that is untreated and was volume overloaded from refusing dialysis -Continue dialysis as planned by Nephrology -BiPAP for BRANDON -O2 prn 3. Vertigo (resolved) This is likely 2/2 BPPV, but will r/o subacute cerebellar infarct with CT head. The patient had associated N/V. This has improved. -Meclizine -Zofran 4. ESRD on HD The patient sees Dr. Dhillon with nephrology and receives Dialysis on . He did not go to dialysis on 07/13 due to his dizziness and fall. The patient got fluid overloaded on 07/19 and got SOB due to refusing dialysis the two days prior. Received dialysis and improved after this. -Dr. Dhillon has been consulted, appreciate recs -Patient received dialysis on 07/14, 07/16, 07/19, 07/20 - will go to dialysis today as he is mildly fluid overloaded -Dialysis catheter has been removed and an attempt was made to access his L fistula, which was unsuccessful. Dr. Delarosa placed a new dialysis catheter on 07/16. -Continue torsemide 5. DMII -Continue home levemir -SSI -Accuchecks ACHS, glucose has been at goal -CC diet 6. HLD -continue home meds 7. PVD s/p Bilateral BKA Patient is wheelchair bound. -Chair with assist -PT/OT 8. BRANDON Patient is not on CPAP and reports never being started on CPAP. -BiPAP at night, counseled pt on the importance of wearing this -Will attempt to obtain records from prior sleep study and see if it is possible to arrange for CPAP at home since patient's O2 keeps dropping at night 9. Acid Reflux -Continue home protonix. The acid reflux could be contributing to the patient's cough as the protonix was just recently started. 10. Diarrhea -This is likely 2/2 medications. The patient was C. diff antigen positive, but toxin negative. <Paradise Guerra - Last Filed: 07/22/17 08:52> Attending Addendum - Attending Addendum Date/Time: 07/22/17 5655 I personally evaluated the patient and discussed the management with Dr. Guerra. I agree with the History, Examination, Assessment and Plan documented above with any addition or exceptions noted below. Trang stratton nght last night. Medically Stable for discharge. <Perico West - Last Filed: 07/22/17 17:10>
[2017-07-22] MEDS ORDERED: Epoetin (ESRD) 10,000 UNITS/ML VIAL IVP SCH (09:00)
[2017-07-22] MEDS ORDERED: Epoetin (NON-ESRD) 20,000 UNITS/ML ML IVP SCH (09:00)
--- NOTE | 2017-07-22 09:28 | PRG ---
DATE OF SERVICE: 07/22/2017 SUBJECTIVE: Patient was seen and examined at bedside and overnight events noted. Patient denies any shortness of breath or chest pain or palpitation. No history of nausea or vomiting or diarrhea or f ever or chills or cramps. OBJECTIVE: GENERAL: This is a morbidly obese male in no apparent distress. VITAL SIGNS: Temperature 98.6, pulse 103, respiratory rate 20, blood pressure 107/71. HEENT: Atraumatic, normocephalic. Oral mucosa is moist. NECK: Supple. CARDIOVASCULAR: Crackles present at bilateral bases. RESPIRATORY: Clear to auscultation. GASTROINTESTINAL: Abdomen is soft. MUSCULOSKELETAL: No tenderness. No edema. DERMATOLOGIC: No skin rash. NEUROLOGIC: Alert and awake and oriented x3. No focal neurologic deficits. Moving all the extremiti es. PSYCHIATRIC: Mood and affect normal. LABORATORY DATA: Potassium is 3.5, BUN is 31, creatinine is 4.9. ASSESSMENT AND PLAN: 1. End-stage renal disease. Will have dialysis today and then continue dialysis on Thursday, , and Thursday as tolerated. 2. Edema, we will remove fluid. 3. Acute hypoxic respiratory failure, better. 4. Morbid obesity. 5. Hypertension, stable. 6. Anemia, stable hemoglobin, but below. 7. Had Epogen with dialysis. We will remove fluid with dialysis as tolerated and we will follow.
[2017-07-22] MEDS ORDERED: Heparin 10,000 UNITS/ 10 ML VIAL ONE (10:00)
[2017-07-22] MEDS: Insulin Detemir 100 UNITS/ML 35 UNITS in Pre-Filled Syringe 1 EACH SC SCH (20:58)
[2017-07-23 08:09] LABS: #Basophils 0.1 thou/uL (0.0-0.2); #Eosinphils 0.3 thou/uL (0.0-0.7); #Lymphocytes 1.5 thou/uL (1.20-3.40); #Monocytes 0.7 thou/uL (0.11-0.59); #Neutrophils 5.9 thou/uL (1.40-6.50); %Basophils 0.8 % (0.0-1.0); %Eosinophils 3.2 % (0.0-10.0); %Lymphocytes 17.4 % (21.0-51.0); %Monocytes 8.8 % (0.0-10.0); %Neutrophils 69.8 % (42.0-75.0); Hemoglobin 7.6 g/dL (14.0-18.0); Mean Corpuscular HGB CONC 30.6 g/dL (32.0-36.0); Mean Corpuscular Hemoglobin 26.1 pg (27.0-31.0); Mean Corpuscular Volume 85.3 fl (80.0-94.0); Mean Platelet Volume 8.5 fL (7.4-10.4); Platelet Count 163 thou/uL (130-400); RBC Distribution Width 18.4 % (11.5-14.5); Red Blood Cell (RBC) Count 2.89 mill/uL (4.70-6.10); White Blood Cell (WBC) Count 8.4 thou/uL (4.8-10.8)
[2017-07-23 08:31] LABS: Anion Gap 13 mmol/L (10-20); BUN (Urea Nitrogen) 31 mg/dL (8.9-20.6); Calc. Creatinine Clearance 39 mL/min (70-130); Calcium 9.3 mg/dL (7.8-10.44); Carbon Dioxide 28 mmol/L (22-29); Chloride 99 mmol/L (98-107); Estimated GFR-MDRD 17; Glucose 141 mg/dL (70-105); Potassium 3.7 mmol/L (3.5-5.1); Sodium 136 mmol/L (136-145)
[2017-07-23] MEDS: guaiFENesin/DM ER PO SCH (08:53)
[2017-07-23] MEDS: Torsemide 100 MG TAB PO SCH (08:53)
[2017-07-23] MEDS: Heparin 5,000 UNITS/ML VIAL SC SCH (08:54)
[2017-07-23] MEDS: Gabapentin 300 MG CAP PO SCH (08:54)
[2017-07-23] MEDS: Fluticasone Propionate Nasal Spray 16 gm Bottle NASAL SCH (08:54)
[2017-07-23] MEDS: Atorvastatin Calcium 40 MG TAB PO SCH (08:58)
--- NOTE | 2017-07-23 09:05 | PDOC.FM ---
- Subjective Subjective: Patient refused the BiPAP last night. He states that he couldn't sleep with it so he didn't want to wear the mask. The patient denies any SOB, headache. He does still have the persistent, dry cough that is worse at night. He is eating well. He had no problems after dialysis. - Objective MAR Reviewed: Yes Vital Signs & Weight: Vital Signs (12 hours) Temp Pulse Resp BP Pulse Ox 07/23/17 08:00 97.8 F 99 18 111/75 93 L Weight Admit Weight 135.806 kg Weight 135.335 kg I&O: 07/22/17 07/23/17 07/24/17 06:59 06:59 06:59 Intake Total 1300 980 Output Total 250 452 Balance 1050 528 Result Diagrams: 07/23/17 07:59 07/23/17 07:59 <Paradise Guerra - Last Filed: 07/23/17 11:15> - Objective Vital Signs & Weight: Vital Signs (12 hours) Temp Pulse Resp BP Pulse Ox 07/23/17 11:00 98.6 F 77 16 126/76 94 L 07/23/17 08:00 98.6 F 77 16 111/75 94 L Weight Admit Weight 135.806 kg Weight 135.335 kg I&O: 07/22/17 07/23/17 07/24/17 06:59 06:59 06:59 Intake Total 1300 980 180 Output Total 250 452 Balance 1050 528 180 Result Diagrams: 07/23/17 07:59 07/23/17 07:59 <Perico West - Last Filed: 07/23/17 13:47> Phys Exam - Physical Examination Constitutional: NAD HEENT: moist MMs Respiratory: no wheezing, no rales, no rhonchi, clear to auscultation bilateral Cardiovascular: RRR, no significant murmur, no rub Gastrointestinal: soft, non-tender, no distention, positive bowel sounds morbidly obese Musculoskeletal: no edema, pulses present Neurological: non-focal, moves all 4 limbs Psychiatric: normal affect, A&O x 3 Skin: normal turgor, cap refill <2 seconds <Paradise Guerra - Last Filed: 07/23/17 11:15> Dx/Plan (1) Line sepsis associated with dialysis catheter Code(s): T80.218A - OTHER INFECTION DUE TO CENTRAL VENOUS CATHETER, INIT ENCNTR ; A41.9 - SEPSIS, UNSPECIFIED ORGANISM Status: Acute (2) Severe sepsis Code(s): A41.9 - SEPSIS, UNSPECIFIED ORGANISM; R65.20 - SEVERE SEPSIS WITHOUT SEPTIC SHOCK Status: Acute (3) Status post fall Code(s): Z91.81 - HISTORY OF FALLING Status: Acute (4) ESRD (end stage renal disease) Code(s): N18.6 - END STAGE RENAL DISEASE Status: Chronic (5) Diabetes mellitus type 2 in obese Code(s): E11.69 - TYPE 2 DIABETES MELLITUS WITH OTHER SPECIFIED COMPLICATION; E66.9 - OBESITY, UNSPECIFIED Status: Acute (6) Hyperlipidemia Code(s): E78.5 - HYPERLIPIDEMIA, UNSPECIFIED Status: Chronic QualifierTitle: Hyperlipidemia type: unspecified Qualified Code(s): E78.5 - Hyperlipidemia, unspecified (7) Hypertension Code(s): I10 - ESSENTIAL (PRIMARY) HYPERTENSION Status: Chronic QualifierTitle: Hypertension type: essential hypertension Qualified Code( s): I10 - Essential (primary) hypertension (8) Morbid obesity Code(s): E66.01 - MORBID (SEVERE) OBESITY DUE TO EXCESS CALORIES Status: Chronic (9) BRANDON (obstructive sleep apnea) Code(s): G47.33 - OBSTRUCTIVE SLEEP APNEA (ADULT) (PEDIATRIC) Status: Chronic (10) Peripheral 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 mellitus Code(s): E11.43 - TYPE 2 DIABETES W DIABETIC AUTONOMIC (POLY)NEUROPATHY Status : Chronic QualifierTitle: Diabetes mellitus type: type 2 Qualified Code(s): E11.43 - Type 2 diabetes mellitus with diabetic autonomic (poly)neuropathy (11) Peripheral vascular disease Code(s): I73.9 - PERIPHERAL VASCULAR DISEASE, UNSPECIFIED Status: Chronic (12) Acid reflux Code(s): K21.9 - GASTRO-ESOPHAGEAL REFLUX DISEASE WITHOUT ESOPHAGITIS Status: Chronic QualifierTitle: Esophagitis presence: esophagitis presence not specified Qualified Code(s): K21.9 - Gastro-esophageal reflux disease without esophagitis (13) Acute on chronic respiratory failure with hypoxia Code(s): J96.21 - ACUTE AND CHRONIC RESPIRATORY FAILURE WITH HYPOXIA Status: Acute - Plan Plan: 1. Severe Sepsis This is 2/2 CABSI from the dialysis catheter vs pyelonephritis. The BCx grew out Corynebacterium x2. WBC 25.9 with 24% bands, downtrended. Lactate has improved from 2.8 to 2.1. The patient became hypotensive in the ED, but responded to 3L NS bolus. His BP has remained stable since this. Dr. Delarosa removed the catheter on 07/14. CXR showed no signs of infection. Abd/Pelvis CT showed some perinephric inflammatory changes. UA showed signs of infection The patient has continued to fever and have tachycardia and tachypnea after the catheter was removed. New dialysis catheter was placed on 07/16 as the patient's fistula could not be accessed. Repeat BCx and Line Cx have NGTD. UCx NGTD. Initial BCx have been sent to outside laboratory for speciation and sensitivities s/p 7 days of vanc and zosyn -Dr. Brower with ID has been consulted, appreciate recs -Levaquin day 4 -Tylenol prn fevers 2. Acute on Chronic Hypoxic Respiratory Failure Patient has BRANDON that is untreated due to patient non-compliance and was volume overloaded from refusing dialysis -Continue dialysis as planned by Nephrology -BiPAP for BRANDON -O2 prn 3. Vertigo This is likely 2/2 BPPV, but will r/o subacute cerebellar infarct with CT head. The patient had associated N/V. This has improved. -Meclizine -Zofran 4. ESRD on HD The patient sees Dr. Dhillon with nephrology and receives Dialysis on . He did not go to dialysis on 07/13 due to his dizziness and fall. The patient got fluid overloaded on 07/19 and got SOB due to refusing dialysis the two days prior. Received dialysis and improved after this. -Dr. Dhillon has been consulted, appreciate recs -Patient received dialysis on 07/14, 07/16, 07/19, 07/20, 07/22 -Dialysis catheter has been removed and an attempt was made to access his L fistula, which was unsuccessful. Dr. Delarosa placed a new dialysis catheter on 07/16. -Continue torsemide 5. DMII -Continue home levemir -SSI -Accuchecks ACHS, glucose has been at goal -CC diet 6. HLD -continue home meds 7. PVD s/p Bilateral BKA Patient is wheelchair bound. -Chair with assist -PT/OT 8. BRANDON Patient is not on BiPAP and reports never being started on BiPAP. The patient was evaluated with a sleep study in 2013 and he was supposed to be on BiPAP after that time. He was referred by his PCP to a sleep specialist, but per the patient he was never told he had to wear a mask. The patient has a history of non-compliance and likely did not want to wear the mask. I had a lengthy conversation with him yesterday about the importance of BiPAP and all of the benefits of it for his health and all of the risks of him not using it. The patient expressed understanding at the end of this conversation, but then proceeded to refuse BiPAP last night because the mask is uncomfortable. The sleep study from 2013 recommended BiPAP with settings of 20/16 cm with heated humidifier. -BiPAP at night, counseled pt on the importance of wearing this again this AM. PT agreed to wear at home. 9. Acid Reflux -Continue home protonix. The acid reflux could be contributing to the patient's cough as the protonix was just recently started. 10. Diarrhea -This is likely 2/2 medications. The patient was C. diff antigen positive, but toxin negative. dispo: d/c home today <Paradise Guerra - Last Filed: 07/23/17 11:15> Attending Addendum - Attending Addendum Date/Time: 07/23/17 7017 I personally evaluated the patient and discussed the management with Dr. Guerra. I agree with the History, Examination, Assessment and Plan documented above with any addition or exceptions noted below. <Perico West - Last Filed: 07/23/17 13:47>
[2017-07-23] MEDS ORDERED: Meclizine HCl 25 MG TAB PO PRN (09:09)
--- NOTE | 2017-07-23 09:40 | PRG ---
DATE OF SERVICE: 07/23/2017 SUBJECTIVE: Patient was seen and examined at bedside and overnight events noted. Patient denies any shortness of breath or chest pain or palpitation. No history of nausea or vomiting or diarrhea or f ever or chills or cramps. OBJECTIVE: GENERAL: This is a morbidly obese male in no apparent distress. VITAL SIGNS: Temperature 97.8, pulse 90, respiratory rate 18, blood pressure 111/75. HEENT: Atraumatic, normocephalic. Oral mucosa is moist. NECK: Supple. CARDIOVASCULAR: S1, S2 heard. Rate and rhythm regular. RESPIRATORY: Clear to auscultation. GASTROINTESTINAL: Abdomen is soft. MUSCULOSKELETAL: No tenderness. No edema. DERMATOLOGIC: No skin rash. NEUROLOGIC: Alert and awake and oriented x3. No focal neurologic deficits. Moving all the extremiti es. PSYCHIATRIC: Mood and affect normal. LABORATORY DATA: Potassium is 3.7, BUN is 31, creatinine is 4.5. ASSESSMENT AND PLAN: 1. End-stage renal disease. Continue on dialysis Thursday, Thursday, and Thursday, no dialysis today. 2. Edema, remove fluid with dialysis. 3. Morbid obesity. 4. Hypertension. 5. Anemia. 6. Plan is to continue on dialysis as tolerated.
[2017-07-23 11:14] VITALS: BP 126/76; TEMP 98.6
--- NOTE | 2017-07-24 02:12 | DIS-2 ---
DATE OF ADMISSION: 07/13/2017 DATE OF DISCHARGE: 07/23/2017 ADMITTING RESIDENT: Paradise Guerra M.D. DISCHARGE RESIDENT: Paradise Guerra M.D. ADMITTING ATTENDING: Michael Hodges M.D. DISCHARGE ATTENDING: Perico West M.D. CONSULTS: 1. Dr. Delarosa with General Surgery. 2. Dr. Brower with Infectious Disease. 3. Dr. Dhillon with Nephrology. 4. Dr. Hoffmann with Pulmonology. PROCEDURES: 1. Dialysis catheter removal on 07/14/2017. 2. Dialysis catheter placement on 07/16/2017. PRIMARY DIAGNOSES: 1. Severe sepsis. 2. Pyelonephritis versus catheter related bloodstream infection with corynebacterium. 3. Acute on chronic hypoxic respiratory failure. 4. Status post fall. 5. Vertigo. SECONDARY DIAGNOSES: 1. End-stage renal disease on hemodialysis. 2. Diabetes type 2. 3. Hyperlipidemia. 4. Peripheral vascular disease. 5. Obstructive sleep apnea. 6. Acid reflux. DISCHARGE MEDICATIONS: 1. Levaquin 500 mg p.o. q.48 hours, dispensed #2. 2. Atorvastatin 40 mg p.o. daily. 3. Flonase 1 spray in each naris daily. 4. Gabapentin 300 mg p.o. daily. 5. Lantus 35 units subcu at bedtime. 6. Humulin sliding scale. 7. Meclizine 1 tab p.o. q.8. hours p.r.n. dizziness. 8. Protonix 40 mg p.o. daily. 9. Torsemide 1 tab p.o. q.a.m. DISCONTINUED MEDICATIONS: None. HISTORY OF PRESENT ILLNESS AND HOSPITAL COURSE: This is a 46-year-old male with past medical history of end-stage renal disease and diabetes type 2 who presented after a fall that he had due to severe dizziness and weakness. The patient was found to be in severe sepsis with a white count of 25.9 and lactic acid of 2.8 as well as initial vital signs were a pulse of 106, temperature of 101.2 and a blo od pressure of 70/45. There was concern initially was giving the patient too much fluids by the ED; however, with his blood pressures and his severe sepsis, we bolused him and gave him normal saline to keep a map greater than 65. Blood cultures and urine cultures were drawn and he was started on vanc omycin and Zosyn. The patient's case was discussed with Dr. Dhillon who is his clinical training specialist as the carlos ent had a tunneled dialysis catheter and there was concern that his infection was catheter related du e to the patient's nonspecific symptoms; however, at this time, Dr. Dhillon did not want his dialysis ca theter removed. The patient continued to have fever, was tachycardic and tachypneic and his lactate trended down. His blood pressures remain on the lower side and the patient's blood cultures on the n ext day grew out 2/[address] Delarosa was consulted to remove the patient's dialysis catheter and then it was attempted to access his fistula for dialysis; however, this was a f lisa attempt and so. A new dialysis catheter had been placed on 07/16/2017. The patient was contin ued on vancomycin and Zosyn for 7 days and after about the third day, he is not having any fever or s igns of infection. Dr. Brower with Infectious Disease was consulted for question of the best way to m ove forward with treating corynebacterium and he felt that this was more likely related to pyelonephr itis, but this could not definitively be ruled in or out as the urinalysis and urine cultures that castaneda ve been ordered on the day of admission, had still not been drawn and so these were taken at that noemí e, but nothing grew out in the culture, but the CT abdomen showed some signs of inflammatory changes around the left kidney concerning for pyelo, so the patient was treated for a total of 14 days to cov er him for pyelonephritis. Of note, the patient became volume overloaded on 07/19/2017 due to having refused dialysis and show dialysis was done several liters were taken off the patient and the patien t improved at this point, but during this episode, he had become hypoxic and at this time it was revi ewed in his clinic chart that the patient was supposed to be on BiPAP as he had had a sleep study steve vaughan in 2013 that showed he had severe obstructive sleep apnea and was supposed to be on BiPAP, so steps were taken to try and attempt to get the patient home BiPAP. The patient did a trial of BiPAP and w ore it for about 2.5 hours on the first night, but did not like the way it felt and then refused on t he second night; however, conversation was had with the patient about the importance of this and he a greed to try it out at home and really given a real shot and attempt to get a better fitting mask for his face. The patient continued with dialysis throughout the rest of his admission as recommended b y his clinical training specialist. Throughout his hospitalization, the patient's main complaint was of a cough. He had several chest x- rays done, one on the day of admission and one day or two later, making sure the patient did not have a pneumonia and he had also been evaluated for this cough in the [facility] several days prior to admission and started on a proton pump inhibitor for concern that this was related to a kale reflux. The patient had symptoms consistent with seasonal allergies as well as acid reflux and h ad recently been sick with viral upper respiratory tract infections, this could be a multifactorial c ough. It could likely take several weeks to resolve. The patient was treated with several symptomat ic medications to try to manage the cough; however, nothing made it go away entirely, but the patient was encouraged to continue to follow up outpatient for further management of this cough. As far as on his initial admission, the patient had come in with a fall where he had hit his head, th is was evaluated by CT of his head that showed a small soft tissue hematoma, no intracranial abnormal ities. The patient had no neurologic changes and had no pain associated with this. DISPOSITION: Stable. DISCHARGE INSTRUCTIONS: 1. Location: Home. 2. Diet: Renal and consistent carb. 3. Activity: As tolerated. 4. Followup: Follow up with [facility] within 1 to [address] Dhillon within 1 to 2 weeks.
== END 2017-07-23 14:35 | disposition home or self-care (01) | DRG 314 ==
LOC: ERS 12:04 → ERHOLD 14:13 → IMCU/EMU 20:13 → 2SE 07-15 21:33 → T4-B 07-22 01:51
PROVIDERS: ADMIT Student in an Organized Health Care Education/Training Program; ATTEND Student in an Organized Health Care Education/Training Program
PROC: 02PYX3Z Removal of Infusion Device from Great Vessel, External Approach (ICD-10-PCS; principal; 2017-07-14)
PROC: 02HV33Z Insertion of Infusion Device into Superior Vena Cava, Percutaneous Approach (ICD-10-PCS; 2017-07-16)
PROC: B518ZZA Fluoroscopy of Superior Vena Cava, Guidance (ICD-10-PCS; 2017-07-16)
PROC: 05JY3ZZ Inspection of Upper Vein, Percutaneous Approach (ICD-10-PCS; 2017-07-16)
PROC: 5A1D70Z Performance of Urinary Filtration, Intermittent, Less than 6 Hours Per Day (ICD-10-PCS; 2017-07-19)
DX: T80.218A Other infection due to central venous catheter, initial encounter (principal); A41.9 Sepsis, unspecified organism; J96.21 Acute and chronic respiratory failure with hypoxia; R65.20 Severe sepsis without septic shock; I12.0 Hypertensive chronic kidney disease with stage 5 chronic kidney disease or end stage renal disease; E11.22 Type 2 diabetes mellitus with diabetic chronic kidney disease; N12 Tubulo-interstitial nephritis, not specified as acute or chronic; E11.42 Type 2 diabetes mellitus with diabetic polyneuropathy; E66.01 Morbid (severe) obesity due to excess calories; N18.6 End stage renal disease; Z68.41 Body mass index [BMI] 40.0-44.9, adult; W07.XXXA Fall from chair, initial encounter; Y93.89 Activity, other specified; Y92.009 Unspecified place in unspecified non-institutional (private) residence as the place of occurrence of the external cause; Z79.4 Long term (current) use of insulin; Z99.2 Dependence on renal dialysis; Z91.15 Patient's noncompliance with renal dialysis; E78.5 Hyperlipidemia, unspecified; G47.33 Obstructive sleep apnea (adult) (pediatric); E11.51 Type 2 diabetes mellitus with diabetic peripheral angiopathy without gangrene; K21.9 Gastro-esophageal reflux disease without esophagitis; Z89.512 Acquired absence of left leg below knee; Z89.511 Acquired absence of right leg below knee; Z99.3 Dependence on wheelchair; B96.89 Other specified bacterial agents as the cause of diseases classified elsewhere; S00.03XA Contusion of scalp, initial encounter; Z91.19 Patient's noncompliance with other medical treatment and regimen; D63.1 Anemia in chronic kidney disease; E87.6 Hypokalemia
CPT/HCPCS: 36415; 36416; 70450; 71045; 74177; 80048; 80053; 80202; 81001; 83605; 83690; 85025; 85652; 86140; 87040; 87086; 87324; 87449; 87493; 87804; 90935; 93005; 94640; 94660; 96361; 96365; A4216; C1752; C1769; G0257; G8978-GP-CK; G8979-GP-CJ; G8987-GO-CK; G8988-GO-CI; J0670; J1644; J1815; J1940; J2001; J2543; J3370; J7050; Q0162; Q4081

== ENCOUNTER 2017-09-11 16:06 | Emergency (ER) | payer MEDICARE, MEDICAID ==
[2017-09-11 16:33] LABS: #Eosinphils 0.2 thou/uL (0.0-0.7); #Lymphocytes 1.1 thou/uL (1.20-3.40); #Monocytes 0.4 thou/uL (0.11-0.59); #Neutrophils 2.4 thou/uL (1.40-6.50); %Basophils 0.6 % (0.0-1.0); %Eosinophils 4.6 % (0.0-10.0); %Lymphocytes 27.6 % (21.0-51.0); %Monocytes 9.9 % (0.0-10.0); %Neutrophils 57.3 % (42.0-75.0); Hemoglobin 11.7 g/dL (14.0-18.0); Mean Corpuscular HGB CONC 31.3 g/dL (32.0-36.0); Mean Corpuscular Hemoglobin 27.5 pg (27.0-31.0); Mean Corpuscular Volume 87.8 fl (80.0-94.0); Mean Platelet Volume 8.4 fL (7.4-10.4); Platelet Count 180 thou/uL (130-400); RBC Distribution Width 17.6 % (11.5-14.5); Red Blood Cell (RBC) Count 4.25 mill/uL (4.70-6.10); White Blood Cell (WBC) Count 4.1 thou/uL (4.8-10.8)
[2017-09-11 16:53] LABS: ALT (SGPT) 18 U/L (8-55); AST (SGOT) 18 U/L (5-34); Albumin 4.1 g/dL (3.5-5.0); Alkaline Phosphatase 117 U/L (40-150); Anion Gap 15 mmol/L (10-20); BUN (Urea Nitrogen) 49 mg/dL (8.9-20.6); Bilirubin, Total 0.4 mg/dL (0.2-1.2); Calc. Creatinine Clearance 0 mL/min (70-130); Calcium 9.2 mg/dL (7.8-10.44); Carbon Dioxide 21 mmol/L (22-29); Chloride 110 mmol/L (98-107); Estimated GFR-MDRD 16; Globulin 4.4 g/dL (2.4-3.5); Glucose 91 mg/dL (70-105); Magnesium 1.8 mg/dL (1.6-2.6); Phosphorus 3.6 mg/dL (2.3-4.7); Potassium 4.8 mmol/L (3.5-5.1); Protein, Total 8.5 g/dL (6.0-8.3); Sodium 141 mmol/L (136-145)
== END 2017-09-11 19:12 | disposition home or self-care (01) ==
LOC: ERS 16:06
DX: R19.7 Diarrhea, unspecified (principal); E11.9 Type 2 diabetes mellitus without complications; E78.5 Hyperlipidemia, unspecified; N18.6 End stage renal disease; K21.9 Gastro-esophageal reflux disease without esophagitis; Z79.4 Long term (current) use of insulin
CPT/HCPCS: 80053; 83735; 84100; 85025; 93005

== ENCOUNTER 2017-12-06 14:52 | Emergency (ER) | payer MEDICARE, MEDICAID | END 2017-12-06 17:46 | disposition home or self-care (01) | LOC: ERS 14:52 | DX: Z46.6 Encounter for fitting and adjustment of urinary device (principal); E11.22 Type 2 diabetes mellitus with diabetic chronic kidney disease; N18.6 End stage renal disease; Z79.4 Long term (current) use of insulin; Z79.899 Other long term (current) drug therapy | CPT/HCPCS: 99283 ==

== ENCOUNTER 2018-08-07 10:44 | Inpatient (IN) | payer MEDICARE, MEDICAID ==
[2018-08-07 11:26] LABS: #Basophils 0.1 thou/uL (0.0-0.2); #Eosinphils 0.1 thou/uL (0.0-0.7); #Lymphocytes 2.2 thou/uL (1.20-3.40); #Monocytes 0.5 thou/uL (0.11-0.59); #Neutrophils 3.2 thou/uL (1.40-6.50); %Basophils 0.9 % (0.0-1.0); %Eosinophils 1.8 % (0.0-10.0); %Monocytes 7.6 % (0.0-10.0); %Neutrophils 53.7 % (42.0-75.0); Hemoglobin 8.4 g/dL (14.0-18.0); Mean Corpuscular HGB CONC 32.7 g/dL (32.0-36.0); Mean Corpuscular Hemoglobin 26.5 pg (27.0-31.0); Mean Corpuscular Volume 81.1 fL (78.0-98.0); RBC Distribution Width 19.3 % (11.5-14.5); Red Blood Cell (RBC) Count 3.16 mill/uL (4.70-6.10)
[2018-08-07 11:39] LABS: Bilirubin Small (Negative); Blood, Urine Negative (Negative); Clarity CLEAR (Clear); Glucose, Urine (Dipstick) Negative (Negative); Leukocyte Negative (Negative); Nitrite Negative (Negative); Protein, Urine (Dipstick) 300 mg/dL (Neg-Trace); Specific Gravity, Urine 1.011 (1.002-1.036)
[2018-08-07 11:41] LABS: ALT (SGPT) 41 U/L (8-55); AST (SGOT) 276 U/L (5-34); Albumin 2.4 g/dL (3.5-5.0); Alkaline Phosphatase 222 U/L (40-150); Anion Gap 25 mmol/L (10-20); BUN (Urea Nitrogen) 72 mg/dL (8.9-20.6); Bilirubin, Total 4.9 mg/dL (0.2-1.2); CK (CPK) 144 U/L (30-200); Calc. Creatinine Clearance 0 mL/min (70-130); Calcium 7.2 mg/dL (7.8-10.44); Carbon Dioxide 21 mmol/L (22-29); Chloride 95 mmol/L (98-107); Estimated GFR-MDRD 6; Globulin 2.8 g/dL (2.4-3.5); Glucose 62 mg/dL (70-105); Lipase 93 U/L (8-78); Potassium 4.6 mmol/L (3.5-5.1); Protein, Total 5.2 g/dL (6.0-8.3); Sodium 136 mmol/L (136-145)
[2018-08-07 11:41] LABS: Bacteria/HPF 1+ HPF (None Seen); Hyaline Casts/LPF 4-6 HYALINE CAST LPF (0-3 Hyaline); RBC/HPF 0-3 HPF (0-3); Squamous Epithelial 0-3 HPF (0-3)
[2018-08-07 11:47] LABS: Anisocytosis MODERATE=16-30 cells (100X) (0-5/hpf); Hypochromia MODERATE=16-30 cells (100X) (0-5/hpf); MDiff Complete? YES; Mean Platelet Volume 8.7 fL (7.4-10.4); Microcytosis SLIGHT = 6-15 cells (100X) (0-5/hpf); Ovalocytes SLIGHT = 2-5 cells (100X) (0-1/hpf); Platelet Count 96 thou/uL (130-400); Platelet Morphology Comment Appears Decreased; Polychromasia SLIGHT = 2-3 cells (100X) (0-2/hpf); Target Cells SLIGHT = 2-5 cells (100X) (0-1/hpf)
[2018-08-07 12:00] LABS: CKMB 0.7 ng/mL (0-6.6)
--- NOTE | 2018-08-07 12:04 | RAD ---
PORTABLE CHEST: DATE: 08/07/2018. PROVIDED CLINICAL HISTORY: Cough. FINDINGS: Comparison 07/19/2017. Cardiac silhouette appears normal for portable technique. No focal consolidati on, pleural fluid, or pneumothorax apparent. IMPRESSION: No evidence for acute cardiopulmonary process. POS: [facility]
--- NOTE | 2018-08-07 12:34 | PDOC.FPRHP ---
- History of Present Illness Chief Complaint: feeling weak History of Present Illness: Mr. Martinez is a 47 yo M with PMHx ESRD who presents to our ER with chief complaint of "looking gasca" when his sister and friend (who is reportedly a nurse) went to check on him and get him cleaned up and help take care of his bedsores. He has been feeling overall week and per his friend, isn't "with it today." They report when EMS got there his O2 was 76%. He is oriented x3 at this time but speaking sort of slowly. He denies f/c. His primary concern is pain at the sore on his bottom. He was recently hospitalized at [facility] from Thursday (est ) to and was discharged about a week and a half ago after telling him he had a blood infection. He was not taking abx a few days ago he was rx because it gave him diarrhea. It has been persistent. Denies blood in stool. Hasn't been taking his antibiotics since discharge because he believed they gave him the diarrhea ED Course: 500 mL bolus, vanc/zosyn started - Allergies/Adverse Reactions Allergies Allergy/AdvReac Type Severity Reaction Status Date / Time No Known Drug Allergies Allergy Verified 06/24/17 12:52 - Home Medications Medication Instructions Recorded Confirmed Type Gabapentin 300 mg PO DAILY 07/13/17 08/07/18 History Amlodipine [Norvasc] 10 mg PO DAILY 08/07/18 08/07/18 History Fluticasone Propionate [Flonase 2 sprays NASAL DAILY 08/07/18 08/07/18 History Nasal Coats] Folic Acid 1 mg PO DAILY 08/07/18 08/07/18 History Folic Acid [Folvite] 1 mg PO DAILY 08/07/18 08/07/18 History Insulin Detemir [Levemir] 35 unit SQ HS 08/07/18 08/07/18 History Metoprolol Tartrate 50 mg PO BID 08/07/18 08/07/18 History Metoprolol Tartrate 50 mg PO BID 08/07/18 08/07/18 History Pantoprazole [Protonix] 40 mg PO DAILY 08/07/18 08/07/18 History - History PMHx: ESRD on M/F dialysis, DM2, HTN, HLD, DORYS, PVD, vit D deficiency, PSHx: BL BKA, AV fistula in L arm FHx: Mom with DM/breast cancer, Sister with ovarian cancer, Sister with breast cancer, Dad with HTN Social: Lives with niece, denies t/a/d - Review of Systems General: reports: weight/appetite/sleep changes (reports decreased appetite). denies: fever/chills, night sweats Eyes: denies: eye pain, vision changes ENT: denies: nasal congestion, rhinorrhea Respiratory: denies: cough, shortness of breath Cardiovascular: denies: chest pain, palpitation Gastrointestinal: denies: nausea, vomiting Genitourinary: denies: incontinence, dysuria Skin: reports: lesions (endorses sore on bottom). denies: itching Musculoskeletal: denies: pain, arthritis/arthralgias Neurological: reports: weakness. denies: syncope - Vital signs BP: [102/65] HR: [87] RR: [32] Tmax: [febrile on report, 99.1 on EMR] Pox: [100 ]% on [4L] Wt: [150kg] - Physical Exam Constitutional: well developed, other (fatigued looking) HEENT: normocephalic and atraumatic, grossly normal vision, grossly normal hearing, other (mild mucosal dryness) Neck: supple, trachea midline Chest: no-tender to palpation, no lesions Heart: RRR, normal S1/S2 Lungs: CTAB, no wheezing Abdomen: bowel sounds present, no hernias -Musculoskeletal: bilateral BKA Neurological: no focal deficit, normal sensation Skin: no rash/lesions, good turgor Heme/Lymphatic: no purpura, no petechia Psychiatric: normal mood and affect, intact recent and remote memory FMR H&P: Results - Labs Result Diagrams: 08/07/18 11:00 08/07/18 11:00 Lab results: WBC 6.0 thou/uL (4.8-10.8) 08/07/18 11:00 Hgb 8.4 g/dL (14.0-18.0) L 08/07/18 11:00 Hct 25.6 % (42.0-52.0) L 08/07/18 11:00 MCV 81.1 fL (78.0-98.0) 08/07/18 11:00 Plt Count 96 thou/uL (130-400) L 08/07/18 11:00 Neutrophils % 53.7 % (42.0-75.0) 08/07/18 11:00 Sodium 136 mmol/L (136-145) 08/07/18 11:00 Potassium 4.6 mmol/L (3.5-5.1) 08/07/18 11:00 Chloride 95 mmol/L (98-107) L 08/07/18 11:00 Carbon Dioxide 21 mmol/L (22-29) L 08/07/18 11:00 BUN 72 mg/dL (8.9-20.6) H 08/07/18 11:00 Creatinine 10.52 mg/dL (0.7-1.3) H 08/07/18 11:00 Glucose 62 mg/dL (70-105) L 08/07/18 11:00 Lactic Acid 2.7 mmol/L (0.5-2.2) H 08/07/18 11:00 Calcium 7.2 mg/dL (7.8-10.44) L 08/07/18 11:00 Total Bilirubin 4.9 mg/dL (0.2-1.2) H 08/07/18 11:00 AST 276 U/L (5-34) H 08/07/18 11:00 ALT 41 U/L (8-55) 08/07/18 11:00 Alkaline Phosphatase 222 U/L (40-150) H 08/07/18 11:00 Creatine Kinase 144 U/L (30-200) 08/07/18 11:00 CK-MB (CK-2) 0.7 ng/mL (0-6.6) 08/07/18 11:00 B-Natriuretic Peptide 212.1 pg/mL (0-100) H 08/07/18 11:00 Serum Total Protein 5.2 g/dL (6.0-8.3) L 08/07/18 11:00 Albumin 2.4 g/dL (3.5-5.0) L 08/07/18 11:00 Lipase 93 U/L (8-78) H 08/07/18 11:00 Urine Ketones Negative mg/dL (Negative) 08/07/18 11:25 Urine Blood Negative (Negative) 08/07/18 11:25 Urine Nitrite Negative (Negative) 08/07/18 11:25 Ur Leukocyte Esterase Negative (Negative) 08/07/18 11:25 Urine RBC 0-3 HPF (0-3) 08/07/18 11:25 Urine WBC 4-6 HPF (0-3) H 08/07/18 11:25 Ur Squamous Epith Cells 0-3 HPF (0-3) 08/07/18 11:25 Urine Bacteria 1+ HPF (None Seen) H 08/07/18 11:25 FMR H&P: A/P - Problem List (1) Sepsis Current Visit: Yes Status: Acute Code(s): A41.9 - SEPSIS, UNSPECIFIED ORGANISM (2) Acute on chronic respiratory failure with hypoxia Current Visit: No Status: Acute Code(s): J96.21 - ACUTE AND CHRONIC RESPIRATORY FAILURE WITH HYPOXIA (3) Transaminitis Current Visit: Yes Status: Acute Code(s): R74.0 - NONSPEC ELEV OF LEVELS OF TRANSAMNS & LACTIC ACID DEHYDRGNSE (4) Diabetes mellitus type 2 in obese Current Visit: No Status: Acute Code(s): E11.69 - TYPE 2 DIABETES MELLITUS WITH OTHER SPECIFIED COMPLICATION; E66.9 - OBESITY, UNSPECIFIED (5) Hemodialysis patient Current Visit: No Status: Acute Code(s): Z99.2 - DEPENDENCE ON RENAL DIALYSIS (6) Anemia secondary to renal failure Current Visit: No Status: Chronic Code(s): D63.1 - ANEMIA IN CHRONIC KIDNEY DISEASE (7) ESRD (end stage renal disease) Current Visit: No Status: Chronic Code(s): N18.6 - END STAGE RENAL DISEASE (8) Hypertension Current Visit: No Status: Chronic Code(s): I10 - ESSENTIAL (PRIMARY) HYPERTENSION Qualifiers: Hypertension type: essential hypertension Qualified Code(s): I10 - Essential (primary) hypertension (9) Morbid obesity Current Visit: No Status: Chronic Code(s): E66.01 - MORBID (SEVERE) OBESITY DUE TO EXCESS CALORIES (10) BRANDON (obstructive sleep apnea) Current Visit: No Status: Chronic Code(s): G47.33 - OBSTRUCTIVE SLEEP APNEA (ADULT) (PEDIATRIC) - Plan Sepsis A- Possibly 2/2 bacteremia with multiple pressure ulcers on buttocks. Hx of recent bactermia at the med per pt hx with inadequate ABX use after discharge. Pt is s/p 500ml IVF in ED and with stable BPs. LA 2.7. S/p one dose vanc and zosyn in ED. Levaquin ordered by ED. P- Continue Vanc/zosyn, DC levaquin order - f/u BCx and UCx - request record from the med - f/u repeat LA - PO hydration so as not to fluid overload pt Likely hypoxic respiratory failure A- likely 2/2 BRANDON and obesity hypoventilation syndrome with exacerbation by sepsis. CXR negative, denies hx of CHF. P- CPAP at night - attempt to wean O2 Thrombocytopenia A- pt not actively bleeding with unknown baseline P- will monitor - heparin ppx BID instead of TID elevated BNP A- pt denies hx of CHF and denies SOB actively but endorses orthopnea and is requiring O2 currently. P- request records from the med to see if he has had echo done, if not will do echo indeterminate trop A- no CP currently, EKG significant for QT prolongation but no ST elevations P- repeat trop Diarrhea A- Pt recently had ABX and stopped them at home because of diarrhea. At risk for C diff. P- c diff assay normocytic anemia A- likely 2/2 to ESRD P- monitor H/H ESRD A- Pt reports to have made dialysis yesterday pulling off at least 1L fluid. Pt has L arm fistula or graft for access P- M and F dialysis schedule - consult nephro Elevated transaminases A- ALT and total bili are elevated. Pt denies hx of alcohol use or liver disease but this is suspect. Pt is not outstanding historian P- t bili - RUQ US DM2 A- pt states he was taken off all home meds including 35u levemir daily, BG 62 currently P- hold daily insulin - SSI, accuchecks HTN - hold home meds for now HLD - denies having home meds, will inquire pharmacy PVD - denies having home meds, will inquire pharmacy CODE: FULL FMR H&P: Upper Level - Pertinent history 47 yo M here with ESRD on M/F HD here with his sister for concern of malaise since recent d/c from [facility] for reported bacteremia. He states he was d/c'd on unknown abx and stopped them a few days ago because they were giving him diarrhea. He reports it has improved since stopping abx. He reports decreased PO intake and that the only medication he is taking is insulin because "they stopped them all" at the Med. He cannot recall which medications he was on prior to that. Denies chest pain but endorses that he feels short of breath when lying flat. - Pertinent findings Gen: Awake, alert, oriented x3, appears weak HEENT: NCAT, MMM, conjunctiva non-injected, slight jaundice hue/muddy sclera, EOMI, no JVD CV: RRR, no murmur noted RESP: CTAB ABD: soft, NT, significant abdominal obesity EXT: BL BKA, no pitting edema, pulses noted in BL radial and fistula in LUE bandaged SKIN: reported decubitus ulcer on buttocks, unable to visualize due to patient' s weakness and obesity - Plan Date/Time: 08/07/18 1233 47 yo M with ESRD here with sepsis 2/2 suspected bacteremia 1. Sepsis - Possible bacteremia 2/2 stage 2 ulcer on buttocks - BCx, UCx pending - s/p 500 mL bolus in ED, with ESRD and symptoms of orthopnea/elevated BNP, will hold on more fluids at this time, repeat lactic acid pending - Will ask wound care to document photos and to assist with wound care - Will request records from [facility] 2. Diarrhea - Possible C. diff though he reports it has decreased last couple of days, recent abx and hospitalization - C. diff pending 3. ESRD - M/F dialysis - No overt fluid overload, had dialysis yesterday and took of 1+ L per patient - Will notify Dr. Dhillon patient is here 4. Normocytic anemia - Likely related to CKD - Will try to determine home meds and resume 5. Acute hypoxic respiratory failure (suspected)/BRANDON - Reported O2 sat in the 70s at home and 80 on arrival here - 100% on 4L NC now - No ABG taken in ED, if persistent will order - Possibly due to obesity hypoventilation/BRANDON and decreased respiratory drive with sepsis - Wean off NC and would recommend CPAP at night, patient had sleep study but was never titrated due to hospitalizations 6. Thrombocytopenia - Unknown baseline, will check outside records - Caution with ppx, will make heparin BID and monitor for signs of bleeding 7. Elevated BNP - Echo if none done at the Med - Caution with fluids 8. Elevated troponin - No chest pain, EKG negative - Suspect 2/2 demand ischemia and chronic with ESRD 9. Transaminitis - T/D bili - RUQ sono - Denies h/o alcohol abuse, AST>ALT - Likely also has component of fatty liver 10. Elevated lipase - Borderline, will monitor 11. T2DM - Reports home insulin 35u - Will monitor BG and order SSI for now, consider starting home insulin if appropriate 12. HTN/HLD/PVD/DORYS - Reports not taking any home meds, will call pharmacy and work on med rec/new recommendations - Request records from [facility] I, Alana Felder MD, PGY-3, have evaluated this patient and agree with findings/ plan as outlined by technology internship resident. Pertinent changes/additions are listed here. Addendum - Attending - Attending Attestation Date/Time: 08/07/18 1833 I personally evaluated the patient and discussed the management with Dr. Bolden /Bradford. H&P repeated by me at 1700. I agree with the History, Examination, Assessment and Plan documented above with any addition or exceptions noted below. Patient recent hospitalized for a week at [facility] for what his sister describes as a blood infection. Was discharged on Levaquin but stopped taking because of his diarrhea. TOday they found him altered and "gasca" in the face. Patient A&O x 3 (but poor historian) and per sister patient is near his baseline after ER interventions. Labs and imaging reviewed. Sepsis from presumed untreated bacteremia- Will continue Vanc and Zosyn renally dosed. Blood and urine cx pending. Will get records from [facility] to better care of patient. ESRD-dialysis Thursday and Thursday- nephro notified Hypotension- improved with IVF bolus- bp 100s/60s at the time of my exam. Continue to trend. May need additional fluid. Hypoxia- when I attempted wean in the room patient was 88-89% on RA. CXR normal and lung exam without crackles or wheezes or rhonchi. Most likely secondary to OHS/BRANDON and sepsis. No tachycardia and RR 20 at the time of my exam. I doubt PE but will consider V/Q scan if resp status worsens. Avoid CTA as patient is still making urine and only has dialysis twice daily Transaminitis and elevated bili- RUQ u/s and GGT and alcohol level and hepatitis panel Diarrhea- will check c diff
[2018-08-07] MEDS ORDERED: Sodium Chloride 0.9% 100 ML ONE (13:00)
[2018-08-07] MEDS ORDERED: Piperacillin/Tazobactam 4.5 GM VIAL ONE (13:00)
[2018-08-07] MEDS ORDERED: Sodium Chloride 0.9% 1,000 ML IV SCH (15:04)
[2018-08-07] MEDS ORDERED: Ondansetron ODT 4 MG TAB SL PRN (15:04)
[2018-08-07] MEDS ORDERED: Ondansetron PF 4 MG/2 ML Vial IVP PRN ×2 (15:04→15:35)
[2018-08-07] MEDS ORDERED: Dextrose 5% in Water 1,000 ML IV PRN (15:35)
[2018-08-07] MEDS ORDERED: Dextrose 50% Abboject 50 ML SYRINGE SLOW IVP PRN (15:35)
[2018-08-07] MEDS ORDERED: Calcium Carbonate 500 MG ChewTAB PO PRN (15:35)
[2018-08-07] MEDS ORDERED: Acetaminophen 325 MG TAB PO PRN (15:35)
[2018-08-07] MEDS ORDERED: HumaLOG 300 UNITS/3 ML VIAL SC PRN (15:35)
[2018-08-07] MEDS ORDERED: Ondansetron ODT 4 MG TAB PO PRN (15:35)
[2018-08-07 15:36] LABS: Lactic Acid 2.6 mmol/L (0.5-2.2)
[2018-08-07] MEDS ORDERED: Sodium Chloride 0.9% 250 ML 250 ML IVPB SCH (16:15)
[2018-08-07 16:19] LABS: Troponin I 0.034 ng/mL (< 0.028)
[2018-08-07] MEDS: Piperacillin/Tazobactam 2.25 GM in Sodium Chloride 0.9% 100 ML IVPB SCH (17:38)
[2018-08-07] MEDS ORDERED: Vancomycin HCl 750 MG in Sodium Chloride 0.9% 250 ML 250 ML IVPB SCH (18:45)
[2018-08-07] MEDS ORDERED: Vancomycin HCl 1.5 GM in Sodium Chloride 0.9% 250 ML 300 ML IVPB SCH (18:45)
[2018-08-07] MEDS ORDERED: Vancomycin HCl 1 GM in Premix Bag 1 BAG IVPB SCH (18:45)
[2018-08-07] MEDS ORDERED: Vancomycin Sliding Scale 1 EACH FS ONE (18:45)
[2018-08-07] MEDS ORDERED: HOLD VANCOMYCIN FOR LEVEL >20 FS SCH (18:45)
[2018-08-07] MEDS ORDERED: Vancomycin HCl 1.25 GM in Sodium Chloride 0.9% 250 ML 250 ML IVPB SCH (18:45)
[2018-08-07 20:34] LABS: Lactic Acid 3.2 mmol/L (0.5-2.2)
[2018-08-07 20:37] LABS: Alcohol Less than 10 mg/dL (Less than 10); Gamma GT (GGT) 239 U/L (12-64)
[2018-08-07] MEDS: Heparin 5,000 UNITS/ML VIAL SC SCH (20:53)
[2018-08-07] MEDS ORDERED: Piperacillin/Tazobactam 4.5 GM in Sodium Chloride 0.9% 100 ML IVPB SCH (22:00)
[2018-08-07 22:35] LABS: HBSAg Index 0.22 S/CO (0-0.99); Hep A IgM AB Non-Reactive (NonReactive); Hep A IgM S/CO 0.12 S/CO (0-0.79); Hep B Core Total Ab Non-Reactive (NonReactive); Hep B Core Total Index 0.08 S/CO (0-0.79); Hep B Surf Ag Non-Reactive S/CO (NonReactive); Hep C IgG Ab Non-Reactive (NonReactive); Hep C Index 0.21 S/CO (0-0.79)
[2018-08-08] MEDS: Acetaminophen 325 MG TAB PO PRN ×2 (00:26→18:24)
[2018-08-08] MEDS: Piperacillin/Tazobactam 2.25 GM in Sodium Chloride 0.9% 100 ML IVPB SCH ×3 (00:26→16:16)
[2018-08-08] MEDS ORDERED: Lactated Ringer's 1,000 ML IV SCH (00:30)
[2018-08-08] MEDS ORDERED: Lactated Ringer's 250 ML IV SCH (00:30)
[2018-08-08 06:08] LABS: #Basophils 0.1 thou/uL (0.0-0.2); #Eosinphils 0.2 thou/uL (0.0-0.7); #Lymphocytes 1.2 thou/uL (1.20-3.40); #Monocytes 0.4 thou/uL (0.11-0.59); #Neutrophils 3.4 thou/uL (1.40-6.50); %Basophils 1.1 % (0.0-1.0); %Eosinophils 3.4 % (0.0-10.0); %Lymphocytes 22.8 % (21.0-51.0); %Monocytes 8.3 % (0.0-10.0); %Neutrophils 64.3 % (42.0-75.0); Mean Corpuscular HGB CONC 32.4 g/dL (32.0-36.0); Mean Corpuscular Hemoglobin 26.7 pg (27.0-31.0); Mean Corpuscular Volume 82.4 fL (78.0-98.0); Mean Platelet Volume 7.3 fL (7.4-10.4); Platelet Count 86 thou/uL (130-400); RBC Distribution Width 19.4 % (11.5-14.5); Red Blood Cell (RBC) Count 2.99 mill/uL (4.70-6.10); White Blood Cell (WBC) Count 5.3 thou/uL (4.8-10.8)
--- NOTE | 2018-08-08 06:15 | PDOC.FM ---
- Subjective Subjective: Pt reports continued diarrhea but no other symptoms or complaints at this time. no sob no cough, no fever no chills - Objective MAR Reviewed: Yes Vital Signs & Weight: Vital Signs (12 hours) Temp Pulse Resp BP Pulse Ox 08/08/18 03:08 99.4 F 80 20 98/44 L 92 L 08/07/18 23:21 101.5 F H 88 22 H 115/56 L 95 08/07/18 20:58 87 104/55 L 08/07/18 20:01 98.0 F 86 19 94/55 L 94 L 08/07/18 19:35 92 L Weight Weight 150.366 kg Result Diagrams: 08/08/18 05:56 08/08/18 05:56 Phys Exam - Physical Examination Constitutional: NAD HEENT: PERRLA, moist MMs Neck: no nodes, no JVD Respiratory: no wheezing, clear to auscultation bilateral Cardiovascular: RRR, no significant murmur Gastrointestinal: soft, non-tender Musculoskeletal: no edema, pulses present bilateral BKA Neurological: normal sensation, moves all 4 limbs Lymphatic: no nodes Psychiatric: normal affect Skin: no rash, normal turgor Dx/Plan (1) Sepsis Code(s): A41.9 - SEPSIS, UNSPECIFIED ORGANISM Status: Acute (2) Acute on chronic respiratory failure with hypoxia Code(s): J96.21 - ACUTE AND CHRONIC RESPIRATORY FAILURE WITH HYPOXIA Status: Acute (3) Transaminitis Code(s): R74.0 - NONSPEC ELEV OF LEVELS OF TRANSAMNS & LACTIC ACID DEHYDRGNSE Status: Acute (4) Diabetes mellitus type 2 in obese Code(s): E11.69 - TYPE 2 DIABETES MELLITUS WITH OTHER SPECIFIED COMPLICATION; E66.9 - OBESITY, UNSPECIFIED Status: Acute (5) Hemodialysis patient Code(s): Z99.2 - DEPENDENCE ON RENAL DIALYSIS Status: Acute (6) Anemia secondary to renal failure Code(s): D63.1 - ANEMIA IN CHRONIC KIDNEY DISEASE Status: Chronic (7) ESRD (end stage renal disease) Code(s): N18.6 - END STAGE RENAL DISEASE Status: Chronic (8) Hypertension Code(s): I10 - ESSENTIAL (PRIMARY) HYPERTENSION Status: Chronic Qualifiers: Hypertension type: essential hypertension Qualified Code(s): I10 - Essential (primary) hypertension (9) Morbid obesity Code(s): E66.01 - MORBID (SEVERE) OBESITY DUE TO EXCESS CALORIES Status: Chronic (10) BRANDON (obstructive sleep apnea) Code(s): G47.33 - OBSTRUCTIVE SLEEP APNEA (ADULT) (PEDIATRIC) Status: Chronic - Plan Plan: Sepsis A- Possibly 2/2 bacteremia from previous hosptial stay. Records still not in. Hx of recent bactermia at the med per pt hx with inadequate ABX use after discharge. Pt is s/p 500ml IVF in ED and with stable BPs. Pt on vanc and zosyn P- Continue Vanc/zosyn - f/u BCx and UCx - f/u record from the med - PO hydration so as not to fluid overload pt Likely hypoxic respiratory failure A- likely 2/2 BRANDON and obesity hypoventilation syndrome with exacerbation by sepsis. CXR negative, denies hx of CHF. P- CPAP at night - Incentive spirometer - attempt to wean O2 Thrombocytopenia A- pt not actively bleeding with unknown baseline P- will monitor - heparin ppx BID instead of TID elevated BNP A- pt denies hx of CHF and denies SOB actively but endorses orthopnea and is requiring O2 currently. P- request records from the med to see if he has had echo done, if not will do echo indeterminate trop A- indeterminate x2, pt asymptomatic P- monitor for cardiac symptoms Diarrhea A- Pt recently had ABX and stopped them at home because of diarrhea. c.diff antigen positive but toxin negative, pt does not have active C.Diff infection. P- FOBT - campylobacter and shiga toxin normocytic anemia A- likely 2/2 to ESRD P- monitor H/H ESRD A- Pt reports to have made dialysis yesterday pulling off at least 1L fluid. Pt has L arm fistula or graft for access P- M and F dialysis schedule - f/u nephro recs Elevated transaminases A- liver enzymes improved from yesterday, RUQ US not remarkable. Liley fatty liver disease P- request records from Med, if they did not do GI workup will consult GI DM2 A- pt states he was taken off all home meds including 35u levemir daily, BG 62 currently P- hold daily insulin - SSI, accuchecks HTN - hold home meds for now HLD - reports hx but no home meds - fasting lipid panel PVD - home meds CODE: FULL Addendum - Attending - Attending Attestation Date/Time: 08/08/18 8442 I personally evaluated the patient and discussed the management with Dr. Bolden. I agree with the History, Examination, Assessment and Plan documented above with any addition or exceptions noted below. Patient improving clinically. 1/2 Blood cx positive for coag neg staph (likely contaminant) and urine cx positive for alpha hemolytic strep. Requesting records from [facility]. Need previous cx results as well as to see if he has had workup for his elevated bilirubin and AST. RUQ shows probable hepatic steatosis. Continue IV vanc and zosyn, renally dosed. Dialysis per nephro.
[2018-08-08 06:19] LABS: Lactic Acid 2.5 mmol/L (0.5-2.2)
[2018-08-08 06:23] LABS: Anion Gap 23 mmol/L (10-20); BUN (Urea Nitrogen) 78 mg/dL (8.9-20.6); Calc. Creatinine Clearance 17 mL/min (70-130); Calcium 6.9 mg/dL (7.8-10.44); Carbon Dioxide 23 mmol/L (22-29); Chloride 95 mmol/L (98-107); Estimated GFR-MDRD 6; Glucose 91 mg/dL (70-105); Potassium 4.6 mmol/L (3.5-5.1); Sodium 136 mmol/L (136-145)
[2018-08-08] MEDS ORDERED: Folic Acid 1 MG TAB PO SCH (09:00)
[2018-08-08] MEDS ORDERED: Pantoprazole 40 MG GRANULES PACKET PO SCH (09:00)
[2018-08-08] MEDS: Heparin 5,000 UNITS/ML VIAL SC SCH ×2 (09:28→21:11)
--- NOTE | 2018-08-08 09:31 | ULT ---
RIGHT UPPER QUADRANT ULTRASOUND 08/07/18 COMPARISON: None. HISTORY: Abnormal liver function test. TECHNIQUE: Multiplanar gasca scale sonographic imaging right upper quadrant obtained. FINDINGS: Imaged pancreas is unremarkable. Distal body and tail are obscured by bowel gas. Hepatic parenchyma is echogenic and heterogeneous, suggesting hepatocellular disease, such as hepatic steatosis. Patient is status post cholecystectomy. Sonography reports a negative Lima's sign. CBD measures 5-6 mm, within normal limits. Right kidney measures 11 cm craniocaudal dimension and demonstrates no amada dence for stone, hydronephrosis, or mass. IMPRESSION: Heterogeneity and increased echogenicity of the hepatic parenchyma. No biliary dilatation. Evidence o f prior cholecystectomy. POS: YANCY
[2018-08-08 09:32] LABS: ALT (SGPT) 40 U/L (8-55); AST (SGOT) 240 U/L (5-34); Albumin 2.2 g/dL (3.5-5.0); Alkaline Phosphatase 208 U/L (40-150); Bilirubin, Direct 3.9 mg/dL (0.1-0.3); Bilirubin, Total 4.9 mg/dL (0.2-1.2); Protein, Total 4.8 g/dL (6.0-8.3)
--- NOTE | 2018-08-08 20:18 | PRG ---
DATE OF SERVICE: 08/08/2018 SUBJECTIVE: Patient was seen and examined at bedside and overnight events noted. Patient denies any shortness of breath or chest pain or palpitation. No history of nausea or vomiting or diarrhea or fever or chills or cramps. OBJECTIVE: GENERAL: This is an obese male, in no apparent distress. VITAL SIGNS: Temperature 97.8. Heart rate 87. Respiratory rate 20. Blood pressure 109/61. HEENT: Atraumatic, normocephalic. Oral mucosa is moist NECK: Supple. CARDIOVASCULAR: S1, S2 heard. Rate and rhythm regular. RESPIRATORY: Clear to auscultation. GASTROINTESTINAL: Abdomen is soft. MUSCULOSKELETAL: No tenderness. No edema. DERMATOLOGIC: No skin rash. NEUROLOGIC: Alert and awake and oriented X3. No focal neurologic deficits. Moving all the extremities. PSYCHIATRIC: Mood and affect normal. LABORATORY DATA: Potassium is 4.6, BUN is 78, and creatinine is 11.03. ASSESSMENT AND PLAN: 1. End-stage renal disease. Continue dialysis as tolerated. 2. Edema, limit fluid intake. 3. Hypoalbuminemia. 4. Hypertension. 5. Anemia. 6. Morbid obesity. No acute indication for dialysis. We will check serological labs. We will follow. Job ID: [id number]
[2018-08-09] MEDS: Piperacillin/Tazobactam 2.25 GM in Sodium Chloride 0.9% 100 ML IVPB SCH ×4 (00:27→23:19)
[2018-08-09 06:11] LABS: #Basophils 0.1 thou/uL (0.0-0.2); #Eosinphils 0.2 thou/uL (0.0-0.7); #Lymphocytes 1.7 thou/uL (1.20-3.40); #Monocytes 0.7 thou/uL (0.11-0.59); #Neutrophils 3.7 thou/uL (1.40-6.50); %Basophils 0.8 % (0.0-1.0); %Eosinophils 3.5 % (0.0-10.0); %Lymphocytes 27.5 % (21.0-51.0); %Monocytes 10.3 % (0.0-10.0); %Neutrophils 57.8 % (42.0-75.0); Hemoglobin 8.8 g/dL (14.0-18.0); Mean Corpuscular HGB CONC 32.1 g/dL (32.0-36.0); Mean Corpuscular Hemoglobin 26.5 pg (27.0-31.0); Mean Corpuscular Volume 82.5 fL (78.0-98.0); Mean Platelet Volume 8.3 fL (7.4-10.4); Platelet Count 81 thou/uL (130-400); Red Blood Cell (RBC) Count 3.31 mill/uL (4.70-6.10); White Blood Cell (WBC) Count 6.3 thou/uL (4.8-10.8)
--- NOTE | 2018-08-09 06:17 | PDOC.FM ---
- Subjective Subjective: Mr. Martinez is resting comfortably in bed, he continues to have significant diarrhea. He has good PO intake - Objective Vital Signs & Weight: Vital Signs (12 hours) Temp Pulse Resp BP Pulse Ox 08/09/18 04:11 98.4 F 87 20 108/50 L 100 08/08/18 23:38 98.2 F 83 16 92/50 L 97 08/08/18 21:24 98.1 F 87 18 119/56 L 97 08/08/18 20:59 97 Weight Weight 150.366 kg I&O: 08/07/18 08/08/18 08/09/18 06:59 06:59 06:59 Intake Total 750 Output Total 50 Balance 700 Result Diagrams: 08/09/18 05:59 08/09/18 05:59 Phys Exam - Physical Examination Constitutional: NAD HEENT: moist MMs Neck: supple Gastrointestinal: no distention Musculoskeletal: pulses present Neurological: moves all 4 limbs Psychiatric: normal affect Skin: no rash Dx/Plan (1) Sepsis Code(s): A41.9 - SEPSIS, UNSPECIFIED ORGANISM Status: Acute (2) Transaminitis Code(s): R74.0 - NONSPEC ELEV OF LEVELS OF TRANSAMNS & LACTIC ACID DEHYDRGNSE Status: Acute (3) Acute on chronic respiratory failure with hypoxia Code(s): J96.21 - ACUTE AND CHRONIC RESPIRATORY FAILURE WITH HYPOXIA Status: Acute (4) Diabetes mellitus type 2 in obese Code(s): E11.69 - TYPE 2 DIABETES MELLITUS WITH OTHER SPECIFIED COMPLICATION; E66.9 - OBESITY, UNSPECIFIED Status: Acute (5) Gastroenteritis Code(s): K52.9 - NONINFECTIVE GASTROENTERITIS AND COLITIS, UNSPECIFIED Status : Acute (6) Hemodialysis patient Code(s): Z99.2 - DEPENDENCE ON RENAL DIALYSIS Status: Acute (7) Chronic anemia Code(s): D64.9 - ANEMIA, UNSPECIFIED Status: Chronic (8) ESRD (end stage renal disease) Code(s): N18.6 - END STAGE RENAL DISEASE Status: Chronic (9) Hyperlipidemia Code(s): E78.5 - HYPERLIPIDEMIA, UNSPECIFIED Status: Chronic Qualifiers: Hyperlipidemia type: unspecified Qualified Code(s): E78.5 - Hyperlipidemia , unspecified (10) Hypertension Code(s): I10 - ESSENTIAL (PRIMARY) HYPERTENSION Status: Chronic Qualifiers: Hypertension type: essential hypertension Qualified Code(s): I10 - Essential (primary) hypertension (11) Peripheral vascular disease Code(s): I73.9 - PERIPHERAL VASCULAR DISEASE, UNSPECIFIED Status: Chronic - Plan Plan: Sepsis - Possibly 2/2 bacteremia from previous hosptial stay. Records still not in. Hx of recent bactermia at the med per pt hx with inadequate ABX use after discharge. Pt is s/p 500ml IVF in ED and with stable BPs. - Continue IV zosyn - BCx and UCx likely contaminated - f/u record from the med to determine po abx choice - PO hydration so as not to fluid overload pt Likely hypoxic respiratory failure - likely 2/2 BRANDON and obesity hypoventilation syndrome with exacerbation by sepsis. CXR negative, denies hx of CHF. - CPAP at night - Incentive spirometer - attempt to wean O2 Thrombocytopenia - pt not actively bleeding with unknown baseline - will monitor, held today - heparin ppx BID instead of TID elevated BNP - pt denies hx of CHF and denies SOB actively but endorses orthopnea and is requiring O2 currently. - request records from the med to see if he has had echo done, if not will do echo indeterminate trop - indeterminate x2, pt asymptomatic - monitor for cardiac symptoms Diarrhea - Pt recently had ABX and stopped them at home because of diarrhea. c.diff antigen positive but toxin negative, unlikely active c. diff infection - attempt confirmatory NAAT, empiric PO vanc - FOBT neg - campylobacter and shiga toxin neg normocytic anemia - likely 2/2 to ESRD - monitor H/H ESRD - Pt reports to have made dialysis yesterday pulling off at least 1L fluid. Pt has L arm fistula or graft for access - M and F dialysis schedule - f/u nephro recs Elevated transaminases - liver enzymes improved from yesterday, RUQ US not remarkable. Likely fatty liver disease - request records from Med - consult GI, appreciate recs DM2 - pt states he was taken off all home meds including 35u levemir daily - hold daily insulin - SSI, accuchecks HTN - hold home meds for now HLD - reports hx but no home meds - fasting lipid panel PVD - home meds CODE: FULL Dispo: wean O2, de-escalate abx therapy Addendum - Attending - Attending Attestation Date/Time: 08/09/18 [id number] I personally evaluated the patient and discussed the management with Dr. Matute I agree with the History, Examination, Assessment and Plan documented above with any addition or exceptions noted below. Recent discharge form [facility] will review MR patient was sent home on oral antibiotic which patient discontinued. Note stool studies for C.Dificile positive antigen neg toxin rec po vancomycin 125 mg QID x 10 days pending further studies. Transaminitis remains poorly explained at this time
[2018-08-09 06:38] LABS: Anion Gap 22 mmol/L (10-20); BUN (Urea Nitrogen) 88 mg/dL (8.9-20.6); Calc. Creatinine Clearance 16 mL/min (70-130); Calcium 7.1 mg/dL (7.8-10.44); Carbon Dioxide 20 mmol/L (22-29); Chloride 98 mmol/L (98-107); Cholesterol 293 mg/dl (< 200 Desired); Estimated GFR-MDRD 6; Glucose 102 mg/dL (70-105); HDL Cholesterol Less than 8 mg/dL (>60 Neg Risk); Sodium 135 mmol/L (136-145); Triglycerides 543 mg/dL (Less than 150)
[2018-08-09] MEDS ORDERED: Dextrose 5% in Water 1,000 ML IV PRN (07:34)
[2018-08-09] MEDS ORDERED: Calcium Carbonate 500 MG ChewTAB PO PRN (07:34)
[2018-08-09] MEDS ORDERED: Vancomycin HCl 1.5 GM in Sodium Chloride 0.9% 250 ML 300 ML IVPB SCH (07:45)
[2018-08-09] MEDS ORDERED: HOLD VANCOMYCIN FOR LEVEL >20 FS SCH (07:45)
[2018-08-09] MEDS ORDERED: Vancomycin HCl 1 GM in Premix Bag 1 BAG IVPB SCH (07:45)
[2018-08-09] MEDS ORDERED: Vancomycin HCl 750 MG in Sodium Chloride 0.9% 250 ML 250 ML IVPB SCH (07:45)
[2018-08-09] MEDS ORDERED: Vancomycin HCl 1.25 GM in Sodium Chloride 0.9% 250 ML 250 ML IVPB SCH (07:45)
[2018-08-09] MEDS ORDERED: Epoetin (ESRD) 20,000 UNITS/ML IVP SCH ×5 (08:00→19:11)
[2018-08-09] MEDS ORDERED: Folic Acid 1 MG TAB PO SCH (09:00)
[2018-08-09] MEDS ORDERED: Heparin 5,000 UNITS/ML VIAL SC SCH (09:00)
[2018-08-09] MEDS: Pantoprazole 40 MG GRANULES PACKET PO SCH (09:02)
[2018-08-09] MEDS: Acetaminophen 325 MG TAB PO PRN (09:02)
[2018-08-09 10:18] LABS: INR-International Normal Ratio 1.2; Prothrombin Time 14.8 SEC (12.0-14.7)
[2018-08-09 10:19] LABS: PTT 37.2 SEC (22.9-36.1)
[2018-08-09 10:34] LABS: Vancomycin, Random 10.6 ug/mL (See Comment)
--- NOTE | 2018-08-09 10:34 | CON ---
DATE OF CONSULTATION: 08/07/2018 CONSULTING PHYSICIAN: Michael Bolden MD. REASON FOR CONSULT: End-stage renal disease evaluation and care. REASON FOR ADMISSION: Weakness. HISTORY OF PRESENT ILLNESS: A 47-year-old male with a history of end-stage renal disease, on hemodialysis Thursday and Thursday, type 2 diabetes, hypertension, and hyperlipidemia, came to the hospital with above complaints. He was at home and apparently his sister and her friend were checking on him to take care of his bedsores and was found to be weak and tired and hypoxic and was sent to the hospital. The patient is on 4 L oxygen, and the patient has been having chronic cough and recently discharged from the hospital with antibiotics, but could not take it because of the diarrhea. No nausea or vomiting. No chest pain or palpitation. PAST MEDICAL HISTORY: Positive for end-stage renal disease, type 2 diabetes, hypertension, hyperlipidemia, GERD, peripheral vascular disease, and vitamin D deficiency. PAST SURGICAL HISTORY: Bilateral BKA, AV fistula placement. HOME MEDICATIONS: Reviewed. ALLERGIES: NO KNOWN DRUG ALLERGIES. SOCIAL HISTORY: No smoking, alcohol, or illicit drug abuse. FAMILY HISTORY: No history of any kidney disease. REVIEW OF SYSTEMS: CONSTITUTIONAL: Negative for weight loss or gain, ability to conduct usual activities. SKIN: Negative for rash, itching. EYES: Negative for double vision, pain. ENT/MOUTH: Negative for nose bleeding, neck stiffness, pain, tenderness. CARDIOVASCULAR: Negative for palpitations, dyspnea on exertion, orthopnea. RESPIRATORY: Negative for shortness of breath, wheezing, cough, hemoptysis, fever or night sweats. GASTROINTESTINAL: Negative for poor appetite, abdominal pain, heartburn, nausea, vomiting, constipation, or diarrhea. GENITOURINARY: Negative for urgency, frequency, dysuria, nocturia. MUSCULOSKELETAL: Negative for pain, swelling. NEUROLOGIC/PSYCHIATRIC: Negative for anxiety, depression. ALLERGY/IMMUNOLOGIC: Negative for skin rash, bleeding tendency. PHYSICAL EXAMINATION: GENERAL: This is a well-built male, in no apparent distress. VITAL SIGNS: Temperature 98.6, pulse 89, respiratory rate 26, blood pressure 87/49. HEENT: Atraumatic and normocephalic. Oral mucosa is moist. NECK: Supple. CV: S1 and S2 heard. Rate and rhythm regular. RESPIRATORY: Clear. GI: Abdomen is soft. MUSCULOSKELETAL: 1+ edema. DERMATOLOGIC: No skin rash. NEUROLOGIC: Alert and awake and oriented X3. No focal neurologic deficits. Moving all the extremities. LABORATORY DATA: Hemoglobin is 8.4, potassium is 4.6, bicarb 21, BUN 72, creatinine is 7.5, albumin is 2.4. ASSESSMENT AND PLAN: 1. End-stage renal disease. Last dialysis was on Thursday. No acute indication for dialysis. The patient is slightly fluid overloaded and hypoxic, but remains hypotensive, not able to have ultrafiltration. 2. Anemia, monitor. 3. Edema with fluid overload. 4. Hypotension. 5. Obesity hypoventilation syndrome. 6. Morbid obesity. 7. Hypoalbuminemia. 8. Pyuria. Prognosis is guarded. No acute indication for dialysis. Continue close monitoring. Chronic cough, we would recommend pulmonology evaluation, rule out immunological process. We will check ANCA level. Thank you for the consult. Job ID: [id number]
[2018-08-09] MEDS ORDERED: Heparin 10,000 UNITS/ 10 ML VIAL ONE (11:11)
--- NOTE | 2018-08-09 12:37 | PRG ---
DATE OF SERVICE: 08/09/2018 SUBJECTIVE: This 47-year-old gentleman is being seen for end-stage kidney disease. The patient denied nausea, vomiting or chest pain. OBJECTIVE: See above. Awake, alert, in no acute distress. GENERAL APPEARANCE AND MENTAL STATUS: Fair. HEAD/NECK: Normocephalic. Atraumatic. EYES: EOMI. No deformity. EARS: Clear. No ulcers. NOSE: Intact. No lesions. MOUTH: Clear. No discharge. THROAT: Clear. No exudate. LUNGS: Clear. No crackles. CARDIAC: S1, S2. No rub. ABDOMEN: Benign. Bowel sounds positive. GENITALIA/RECTUM: Choe absent. BACK/EXTREMITIES: Edema 0+. NEUROLOGICAL: Alert and motor intact. SKIN: LYMPHATICS: LABORATORY DATA: Reviewed. IMPRESSION AND PLAN: 1. chronic kidney disease. Continue hemodialysis. 2. Hypertension, stable. 3. Anemia, stable. 4. Medication based on GFR appropriate. Job ID: [id number]
[2018-08-09 13:33] LABS: HIV (1/2) Antibody/Antigen Non-Reactive (NonReactive); HIV 1/2 INDEX 0.07 S/CO (<1.00)
[2018-08-09] MEDS: Epoetin (ESRD) 10,000 UNITS/ML VIAL IVP SCH (16:16)
[2018-08-09 16:27] LABS: ANA Symphony (Qualitative) Negative (Negative); ANA Symphony (Quantitative) 0.5 Ratio (< 0.7 Negative); EliA Vaculitis New Method **** NEW METHOD ****; Glomerular Basemt Membrane Ab Less than 1.9 EliAU/mL (<7 Negative); dsDNA IgG Antibody 0.6 IU/mL (<10 Negative)
[2018-08-09] MEDS ORDERED: Melatonin 3 MG TAB PO PRN (23:11)
[2018-08-10] MEDS: Vancomycin HCl 25 MG/ML Oral PO SCH ×4 (00:18→19:56)
--- NOTE | 2018-08-10 02:12 | CON ---
DATE OF CONSULTATION: 08/09/2018 REASON FOR CONSULTATION: Elevated transaminases. CONSULTING PHYSICIAN: Dr. Bora Matute. HISTORY OF PRESENT ILLNESS: The patient is a 47-year-old male with past medical history of end-stage renal disease on hemodialysis, diabetes, hypertension, hyperlipidemia, GERD, peripheral vascular disease, vitamin D deficiency, and sacral decubitus ulcerations as well as bilateral below-knee amputations, who presented to [facility] with complaints of increased weakness. Upon chart review, the patient was recently admitted to the [facility] in the beginning of July 2018, and diagnosed with sepsis and septic shock that required ICU admission and placement on pressor support. He was ultimately placed on IV antibiotics due to bacteremia and discharged to home on continuation of those antibiotics in an oral formulation. However, shortly after being discharged from the hospital, he experienced increased diarrhea secondary to antibiotic administration and subsequently self-discontinued the medication approximately 4 days ago. Over the next four days, the patient states that he had been growing increasingly weak with difficulty getting out of bed and performing ADLs. Concerning his diarrhea, he stated that while in the hospital at [facility], he was having approximately 3-4 liquid bowel movements a day while on the antibiotics there and that with discontinuation of the medication was still experiencing 2-3 bowel movement liquid bowel movements daily without the occurrence of melena or hematochezia. Currently, he denies any nausea, vomiting, fevers, chills, or GI bleeding. Of note upon review of the patient's chart, he was noted to have significantly elevated LFTs during his admission at the [facility] that was felt to be due to "shock liver." Upon review of the labs, his AST was significantly elevated as well as mild elevation of ALT, alkaline phosphatase and total bilirubin. REVIEW OF SYSTEMS: A 10-category review of systems was obtained with all responses negative except for the pertinent positives as per the HPI. PAST MEDICAL HISTORY: As per HPI. PAST SURGICAL HISTORY: Bilateral below-knee amputation and arteriovenous fistula formation in the left upper extremity. FAMILY HISTORY: The patient denies any GI malignancies. SOCIAL HISTORY: Denies any tobacco, alcohol, or illicit drug use. OUTPATIENT MEDICATIONS: Reviewed. ALLERGIES: NO KNOWN DRUG ALLERGIES. PHYSICAL EXAMINATION: VITAL SIGNS: Temperature 98.4, pulse 88, blood pressure 95/44, respiratory rate 16, saturating 92% on room air. GENERAL: The patient was lying in bed, in no acute distress. Alert and oriented x4. HEENT: Normocephalic, atraumatic. NECK: Supple. No JVD or scleral icterus noted. CARDIOVASCULAR: Regular rate and rhythm with no discernible murmurs, gallops, or rubs. RESPIRATORY: Clear to auscultation bilaterally, but difficult to hear in the bilateral lung bases due to the patient's body habitus. ABDOMEN: Normoactive bowel sounds. Soft, nontender, nondistended. EXTREMITIES: Bilateral below-knee amputations with no cyanosis or edema to the skin. LABORATORY DATA: CBC with a white blood cell count of 6.3, hemoglobin 8.8, hematocrit 27.3, platelets 81. INR 1.2. TSH 0.18. Chemistry with a sodium of 135, potassium 5, chloride 98, CO2 20, BUN 88, creatinine 11.88, glucose 102, AST 240, ALT 40, alkaline phosphatase 208, total bilirubin 4.9, lactic acid 2.5. IMAGING DATA: Abdominal ultrasound performed on August 07, 2018, showed hepatic parenchyma that was heterogeneous in echotexture consistent with hepatic steatosis. The common bile duct was normal at 5 to 6 mm in size. There was also evidence of a prior cholecystectomy. ASSESSMENT AND PLAN: The patient is a 47-year-old male with past medical history of end-stage renal disease on hemodialysis, diabetes, hypertension, hyperlipidemia, gastroesophageal reflux disease, peripheral vascular disease, vitamin D deficiency, sacral decubitus ulcerations, and recent admission to [facility] for sepsis, presenting with transaminitis and diarrhea. Transaminitis: The patient was admitted to the [facility] in the beginning of July 2018, with a diagnosis of sepsis and septic shock that ultimately required admission to the ICU and placement on pressor support. Upon review of labs at the [facility], at that time, he was noted to have significantly elevated liver function tests that were termed to be "shock liver." Upon review of the labs via the patient's chart here at [facility], his AST was never higher than 500, but he did exhibit a significantly elevated AST, ALT, alkaline phosphatase and total bilirubin consistent with a shock liver or ischemic type event. In comparison with his transaminitis during that admission, his liver function tests continued to downtrend and are more likely the sequela of his initial hypotension. With the sepsis at that time, they here required pressor support. He is currently normotensive with no evidence of septic shock. Recommendations: 1. We will continue to trend LFTs daily for continue downtrending of the enzymes, most likely as the sequelae of his prior episode of hypotension. 2. Agree with placing the patient on antibiotics to prevent against any further episodes of hypotension. 3. We would continue hemodialysis, which may actually help decrease the transaminitis within the blood stream as well. 4. We would avoid any potential hepatotoxins during this admission. Diarrhea: The patient is presenting with increased diarrhea that he started to experience while his most recent admission at the [facility]. Upon chart review, the patient was noted to be admitted to the hospital 3 weeks prior to his last admission and was treated for pneumonia and during the last admission he was on broad-spectrum antibiotics for the sepsis. With his continued diarrhea during that admission and diarrhea during this admission, the concern for Clostridium difficile and colitis is high. Clostridium diff stool studies obtained during this admission were positive for the antigen, but not necessarily positive for the toxin. However, given his healthcare exposures, continued diarrhea and the presence of Clostridium difficile in the stool, I would ultimately end up treating him for Clostridium difficile colitis. Recommendations: 1. We would place the patient on oral vancomycin 125 mg every 6 hours as part of treatment for Clostridium difficile colitis. 2. With increased fluid losses with diarrhea we, would continue to monitor his volume status with any fluid added back during hemodialysis. 3. We will continue to follow. Please call with any questions. Job ID: [id number]
--- NOTE | 2018-08-10 06:37 | PDOC.FM ---
- Subjective Subjective: during morning rounds pt was found non-responsive to verbal/painful stimuli, hypotense, temp elevated to 101.4. 02% 97, BG>100. Ordered: Stat ABG, CBC, CMP, BCx, Linezolid, and transfer to [facility]. - Objective Vital Signs & Weight: Vital Signs (12 hours) Temp Pulse Resp BP Pulse Ox 08/10/18 04:00 98.2 F 102 H 24 H 100/52 L 92 L 08/09/18 23:25 98.9 F 101 H 24 H 115/56 L 94 L 08/09/18 20:00 98.4 F 16 95/44 L 92 L Weight Admit Weight 150.366 kg Weight 150.366 kg I&O: 08/08/18 08/09/18 08/10/18 06:59 06:59 06:59 Intake Total 990 978 Output Total 50 2000 Balance 940 -1022 Result Diagrams: 08/10/18 09:01 08/10/18 08:56 Phys Exam - Physical Examination Constitutional: NAD dry MM Neck: no nodes, supple Respiratory: no wheezing, no rhonchi, clear to auscultation bilateral tachy with no murmur Gastrointestinal: soft, no distention Musculoskeletal: pulses present non responsive to stimuli Skin: no rash Dx/Plan (1) Sepsis Code(s): A41.9 - SEPSIS, UNSPECIFIED ORGANISM Status: Acute (2) Transaminitis Code(s): R74.0 - NONSPEC ELEV OF LEVELS OF TRANSAMNS & LACTIC ACID DEHYDRGNSE Status: Acute (3) Acute on chronic respiratory failure with hypoxia Code(s): J96.21 - ACUTE AND CHRONIC RESPIRATORY FAILURE WITH HYPOXIA Status: Acute (4) Diabetes mellitus type 2 in obese Code(s): E11.69 - TYPE 2 DIABETES MELLITUS WITH OTHER SPECIFIED COMPLICATION; E66.9 - OBESITY, UNSPECIFIED Status: Acute (5) Gastroenteritis Code(s): K52.9 - NONINFECTIVE GASTROENTERITIS AND COLITIS, UNSPECIFIED Status : Acute (6) Hemodialysis patient Code(s): Z99.2 - DEPENDENCE ON RENAL DIALYSIS Status: Acute (7) Chronic anemia Code(s): D64.9 - ANEMIA, UNSPECIFIED Status: Chronic (8) ESRD (end stage renal disease) Code(s): N18.6 - END STAGE RENAL DISEASE Status: Chronic (9) Hyperlipidemia Code(s): E78.5 - HYPERLIPIDEMIA, UNSPECIFIED Status: Chronic Qualifiers: Hyperlipidemia type: unspecified Qualified Code(s): E78.5 - Hyperlipidemia , unspecified (10) Hypertension Code(s): I10 - ESSENTIAL (PRIMARY) HYPERTENSION Status: Chronic Qualifiers: Hypertension type: essential hypertension Qualified Code(s): I10 - Essential (primary) hypertension (11) Peripheral vascular disease Code(s): I73.9 - PERIPHERAL VASCULAR DISEASE, UNSPECIFIED Status: Chronic - Plan Plan: Sepsis - Possibly 2/2 C. diff colitis vs UTI. - Hx of recent bactermia at the med per pt hx with inadequate ABX use after discharge - BCx NGTD, UCx reveals VRE - abx: PO vanc, IV vanc, and zosyn. Add Linezolid - ID consulted, appreciate recs - 500 ml bolus, monitor vitals q1hr, transfer to [facility] - midline in place Diarrhea - Pt recently had ABX and stopped them at home because of diarrhea. c.diff antigen positive but toxin negative, concerning hx for c. diff colitis - PO vanc - FOBT neg - campylobacter and shiga toxin neg Hypoxic respiratory failure - likely 2/2 BRANDON and obesity hypoventilation syndrome with exacerbation by sepsis. CXR negative, denies hx of CHF. - CPAP at night - Incentive spirometer - O2 at 2L NC Thrombocytopenia - pt not actively bleeding with unknown baseline - will monitor, hold heparin prn for low platelets - heparin ppx BID instead of TID elevated BNP - pt denies hx of CHF and denies SOB actively but endorses orthopnea - recent echo shows EF of 55-60% indeterminate trop - indeterminate x2, pt asymptomatic - monitor for cardiac symptoms normocytic anemia - likely 2/2 to ESRD - monitor H/H ESRD - Pt reports to have made dialysis yesterday pulling off at least 1L fluid. Pt has L arm fistula or graft for access - M and F dialysis schedule - f/u nephro recs Elevated transaminases - liver enzymes improved from yesterday, RUQ US not remarkable. Likely fatty liver disease - continue to trend enzymes - consult GI, appreciate recs DM2 - pt states he was taken off all home meds including 35u levemir daily - hold daily insulin - SSI, accuchecks HTN - hold home meds for now HLD - reports hx but no home meds - fasting lipid panel grossly elevated PVD - home meds CODE: FULL Dispo: transfer to [facility] for closer monitoring Addendum - Attending - Attending Attestation Date/Time: 08/10/18 1305 I personally evaluated the patient and discussed the management with Dr. Matute I agree with the History, Examination, Assessment and Plan documented above with any addition or exceptions noted below. Patient unresponsive hypotensive and temp 101 will transfer to higher level of care fluid bolus and consider pressors. appear to be in severe sepsis clinically.
[2018-08-10] MEDS ORDERED: Lactated Ringer's 500 ML IV SCH ×3 (08:30→10:30)
[2018-08-10 09:39] LABS: ALT (SGPT) 47 U/L (8-55); AST (SGOT) 264 U/L (5-34); Albumin 2.3 g/dL (3.5-5.0); Alkaline Phosphatase 235 U/L (40-150); Anion Gap 25 mmol/L (10-20); BUN (Urea Nitrogen) 62 mg/dL (8.9-20.6); Bilirubin, Total 4.9 mg/dL (0.2-1.2); Calc. Creatinine Clearance 21 mL/min (70-130); Calcium 7.2 mg/dL (7.8-10.44); Carbon Dioxide 21 mmol/L (22-29); Chloride 95 mmol/L (98-107); Estimated GFR-MDRD 7; Globulin 2.9 g/dL (2.4-3.5); Glucose 75 mg/dL (70-105); Potassium 4.7 mmol/L (3.5-5.1); Protein, Total 5.2 g/dL (6.0-8.3); Sodium 136 mmol/L (136-145)
[2018-08-10 09:40] LABS: Actual Bicarbonate (HCO3a) 20.5 mEq/L (22-28); Analyzer IN Cardio OR; CO2 Tension 26.9 mmHg (35.0-45.0); Calcium, Ionized 0.91 mmol/L (1.12-1.30); Carboxyhemoglobin (COHb) 1.4 gm% (0.0-3.0); Hemoglobin (Hb) 8.4 g/dL (14.0-18.0); O2 Tension (PaO2) 82.2 mmHg (80.0-100.0); Potassium - ABG Lab 4.53 mmol/L (3.70-5.30)
[2018-08-10 09:41] LABS: Puncture Site RB
[2018-08-10 10:07] LABS: Anisocytosis MODERATE=16-30 cells (100X) (0-5/hpf); Band 23 % (5-11); Bite Cells SLIGHT = 2-5 cells (100X) (0-1/hpf); Eosinophils 1 % (0-10); Hemoglobin 8.5 g/dL (14.0-18.0); Hypochromia SLIGHT = 6-15 cells (100X) (0-5/hpf); Lymphocytes 27 % (21-51); MDiff Complete? YES; Mean Corpuscular HGB CONC 33.6 g/dL (32.0-36.0); Mean Corpuscular Hemoglobin 27.1 pg (27.0-31.0); Mean Corpuscular Volume 80.8 fL (78.0-98.0); Monocytes 7 % (0-10); Neutrophil 38 % (42-75); Nucleated RBC 2 % (0); Platelet Count 99 thou/uL (130-400); Platelet Morphology Comment Appears Decreased; Polychromasia SLIGHT = 2-3 cells (100X) (0-2/hpf); RBC Distribution Width 20.2 % (11.5-14.5); Reactive Lymphocytes 3 % (0-10); Red Blood Cell (RBC) Count 3.12 mill/uL (4.70-6.10); Schistocytes SLIGHT = 2-5 cells (100X) (0-1/hpf); White Blood Cell (WBC) Count 6.7 thou/uL (4.8-10.8)
[2018-08-10] MEDS: Piperacillin/Tazobactam 2.25 GM in Sodium Chloride 0.9% 100 ML IVPB SCH ×2 (10:37→17:18)
[2018-08-10] MEDS: Folic Acid 1 MG TAB PO SCH (10:40)
[2018-08-10] MEDS: Fluticasone Propionate Nasal Spray 16 gm Bottle NASAL SCH (10:40)
[2018-08-10] MEDS: Linezolid 600 MG in Premix Bag 1 BAG IVPB SCH ×2 (10:41→21:24)
[2018-08-10] MEDS: Pantoprazole 40 MG GRANULES PACKET PO SCH (10:41)
[2018-08-10] MEDS: Gabapentin 300 MG CAP PO SCH (10:41)
[2018-08-10] MEDS: Dextrose 50% Abboject 50 ML SYRINGE SLOW IVP PRN (10:58)
[2018-08-10] MEDS ORDERED: Acetaminophen 1,000 MG in Premix Bag 1 BAG IVPB SCH (12:15)
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
--- NOTE | 2018-08-10 13:07 | PRG ---
DATE OF SERVICE: 08/10/2018 SUBJECTIVE: This is a 47-year-old gentleman being seen for end-stage renal disease. The patient was transferred to IMCU due to febrile episode and AMS. OBJECTIVE: VITAL SIGNS: The patient is febrile. Pulse 103, breathing 16, blood pressure was 91/60. Head Normocephalic Chest Sym Clear CVS S1 s2 Abdomen Globular Ext edema ++ Labs Reviewed, IMPRESSION AND PLAN: 1. Stage 6 chronic kidney disease, no indication for dialysis today. 2. Hypotension. 3. Anemia, stable. 4. Medications based on GFR, appropriate. 6. Fever Sepsis Job ID: [id number] [facility]
--- NOTE | 2018-08-10 13:38 | CT ---
FCT head without contrast: 08/10/2018 COMPARISON: 07/13/2017 HISTORY: Altered mental status, fever TECHNIQUE: Axial CT imaging at 5 mm intervals from vertex through skull base without contrast. FINDINGS: Diffuse nonspecific posterior scalp swelling is noted from the axial level of the vertex th rough the axial level of the occiput, slightly less conspicuous than on the 07/13/2017 examination. Et iology is uncertain. The imaged paranasal sinuses and mastoid air cells are well aerated. No displaced calvarial fracture. No intracranial hemorrhage, midline shift, mass effect, or ventricular enlargement. IMPRESSION: Posterior scalp swelling with no fracture or intracranial hemorrhage.
[2018-08-10 15:16] LABS: Cytoplasmic (C-ANCA) <1:20 titer (Neg:<1:20); Myeloperoxidase AutoAbs <9.0 U/mL (0.0-9.0); Perinuclear (P-ANCA) <1:20 titer (Neg:<1:20); Proteinase-3 AutoAbs Less than 3.5 U/mL (0.0-3.5)
[2018-08-10] MEDS ORDERED: Midazolam HCl 2 mg/2 ml Vial ONE (15:33)
[2018-08-10 16:00] LABS: Actual Bicarbonate (HCO3a) 18.9 mEq/L (22-28); Base Excess (BEa) -5.6 mEq/L (-2.0 to +3.0); CO2 Tension 32.8 mmHg (35.0-45.0); Calcium, Ionized 0.89 mmol/L (1.12-1.30); Carboxyhemoglobin (COHb) 1.6 gm% (0.0-3.0); Hemoglobin (Hb) 7.9 g/dL (14.0-18.0); Potassium - ABG Lab 4.31 mmol/L (3.70-5.30); pH, Arterial 7.38 (7.35-7.45)
[2018-08-10 16:03] LABS: Puncture Site RRA
[2018-08-10] MEDS ORDERED: Lorazepam 2 MG/ML VIAL ONE (16:08)
[2018-08-10] MEDS ORDERED: Norepinephrine 8 MG/0.9% NS 250 ML ONE (17:15)
[2018-08-10] MEDS ORDERED: Fentanyl BOLUS 250 ML IVPB PRN (19:18)
[2018-08-10] MEDS ORDERED: Propofol BOLUS 1,000 MG/100 ML VIAL IV PRN (19:18)
[2018-08-10] MEDS ORDERED: DISCONTINUE PREVIOUS NARCOTIC PAIN MEDICATIONS AND BENZODIAZEPINES FS SCH (19:18)
[2018-08-10] MEDS ORDERED: Morphine 2 MG/ML SYRINGE SLOW IVP PRN (19:18)
[2018-08-10] MEDS ORDERED: Ventilator Sedation Protocol 1 EACH FS SCH (19:30)
--- NOTE | 2018-08-10 19:30 | CON ---
DATE OF CONSULTATION: 08/10/2018 REASON FOR CONSULTATION: Possible sepsis. HISTORY OF PRESENT ILLNESS: A 47-year-old the with a history of type 2 diabetes mellitus and hypertension as well as bilateral BKAs related to complications from neuropathy, and morbid obesity, whom we had seen the last time in July 2017. The patient presented with now end-stage renal disease on hemodialysis with tunneled catheter with new onset of fever and chills and positive Corynebacterium, blood cultures x2. The impression then was colonization of line versus contamination of the specimen and the catheter had already been removed. Eventually, he obtained AV fistula, which over the past few months has been used for dialysis. I believe in June or May of this year, he was admitted to [facility] with altered mental status, hypotension, hypoxemia, and CT of chest did not show any evidence of pulmonary embolism. He did not have any evidence of infiltrates either. All the cultures, blood, and urine were negative. He had diarrhea as well and the C. difficile test was negative then. A CT of abdomen and pelvis demonstrated a variety of enlarged lymph nodes in the pelvis and retroperitoneal area and those were concerning for possibility of either an atypical infection or lymphoma. The patient was discharged on oral cefdinir, although in my opinion, there is no conclusive evidence to suggest pneumonia. His blood cultures again were negative then. He is now readmitted this time to [facility] after family members felt that he was not looking well. EMS was called and his O2 saturations were 76%. He was still oriented, but sluggish in terms of replies. There had been diarrhea reported by the family as well. No seizure activity. No cough or chest pain. No reported abdominal pain. PAST MEDICAL HISTORY: ESRD secondary to type 2 diabetes on hemodialysis with an AV fistula, previous coronary bacterial infection of previous hemodialysis catheter , obesity complications related to neuropathy in lower extremities which led to bilateral BKAs. Recently, I identified abnormal lymphadenopathy in the abdominal and pelvic area at [facility]. FAMILY HISTORY: Breast cancer and ovarian cancer. SOCIAL HISTORY: Lives with niece. Never smoker. ALLERGIES: NONE. CURRENT MEDICATIONS: Include: 1. Acetaminophen. 2. Fluticasone. 3. Folic acid. 4. Gabapentin. 5. Linezolid. 6. Zosyn. 7. Vancomycin. PHYSICAL EXAMINATION: VITAL SIGNS: The vancomycin is given orally. Vital signs with a T-max of 102 just recently. His blood pressure is 91/60, heart rate 103, and O2 saturation 94% with nasal cannula O2 supplementation. SKIN: With stage 2 to 3 presacral and gluteal skin ulcers with a red base irregular shaped measuring 1 x 4 cm, one of them the other one 1 x 3 cm, and the last one current narrow shaped measuring 0.5 x 2 cm. GENERAL: The patient has a peripheral IV access and does not have Choe catheter. He is obtunded, does not interact with the examiner. He does not establish eye contact. HEENT: His sclerae are white. He did not cooperate for the oral cavity exam. He still had numerous teeth in place with quite a bit of gum resorption. NECK: Supple. No jugular vein distention or carotid bruits. LUNGS: Symmetric air entry. HEART: S1 and S2. Regular rate. No S3 or S4. ABDOMEN: Soft, not distended or tender. No ascites. No bladder distention. The abdomen is somewhat protuberant, but soft. Bilateral BKAs with no abnormalities noted. I could not get spontaneous movements of his lower extremities. LABORATORY DATA: His white cell count is 6.0 and now 6.7, hemoglobin 8.5, platelets 99,000 with 38% neutrophils and 23% bands, nucleated RBCs at 2. The chemistry with the usual findings expected for his end-stage renal disease is except the bilirubin is up to 4.9, AST at 264, alkaline phosphatase 235, albumin 2.3. Urinalysis, 4 to 6 wbc's. ABDIRIZAK was negative. Hepatitis B and HIV and C serologies negative. Chest x-ray with no evidence of acute cardiopulmonary disease. His previous abdomen and pelvis CT from this hospital are from June 2017 showed no abscess formation, perinephric inflammatory changes noted, and stable lymphadenopathy of abdomen and pelvis. He has had an abdominal ultrasound from August 07, 2018, with echogenicity, hepatic parenchyma, but no biliary dilatation. ASSESSMENT: 1. End-stage renal disease secondary to diabetes type 2, on hemodialysis through an arteriovenous fistula. 2. Recent admission to [place] with hypotension and hypoxemia with abnormalities in the abdomen, CT scan suggestive of pathologic lymphadenopathy without a precise diagnosis having been established. 3. Recrudescence of altered mental status, weakness, abnormal liver function tests with elevated bilirubin and transaminases, hypotension. 4. Urine cultures with vancomycin-resistant enterococci. DISCUSSION: The differential diagnosis includes an infectious syndrome associated with bacteremia due to the usual pathogens, urinary tract infection with pyelonephritis or noninfectious syndrome secondary to lymphoma for example in view of the lymphadenopathy identified in the recent CT scan done at the [facility]. The other possibility would be an atypical infection including mycobacterial and fungal, particularly histoplasmosis. The abnormal liver function tests and the findings of the ultrasound would indicate hepatic infiltrative process. This could be metastases from lymphoproliferative disorder or from a solid organ malignancy. Liver abscesses would be less likely, but not ruled out noninfectious or neoplastic syndromes, particularly vasculitis, autoimmune syndromes are would be unlikely in this presentation. At this point, recommend repeating his abdomen and pelvis CT scan to see what the progress is from the last one done at [facility] to see if there are kidney and inflammatory changes in the perinephric space or not. The vancomycin-resistant enterococcus likely to represent colonizer of the bladder rather than a true invasive pathogen in view of the low number of white cells in the urine sample. Job ID: [id number] MTDD
[2018-08-10] MEDS: Sodium Chloride 0.9% 1,000 ML IV SCH (19:55)
[2018-08-10] MEDS: fentaNYL Citrate/PF 2,000 MCG in Sodium Chloride 0.9% 60 ML IV SCH (19:56)
--- NOTE | 2018-08-10 22:28 | PDOC.EVN ---
Event Note - Event Note Event Note: NOTE Transfer to MICU 47 yo DM obese male with ESRD on HD s/p Costa BKA, BRANDON admitted with sepsis and respiratory failure with marked change in status noted at AM rounds Patient nonresponsive with temp 101 B/P 80/60 with pulse 101 and tachypnea note . Patient transferred to MICU and fluid bolus with concern severe sepsis and need for pressors and elective intubation to protect airway. Questionable sources infection colitis(C.dificle AG positive toxin negatve on empirical vancomycin RX),Sacral pressure ulcers and notable urine with VRE. Recent hospitalization with similiar clinical picture of sepsis and transaminitis secondary to Shock liver patient received multiple AB and was dismissed on po cefdinir which patient discontinued secondary to diarrhea. Will obtain repeat blood cultures,CBC CXR and CBC CT head for AMS will consult with critical care and ID additional history from Dr Brower of unspecified abdominal lymphadenopathy identified recently at [facility] with concern possible lymphoma. Patient in critical status his sister was updated and appreciate recommendations from Critical Care and ID
--- NOTE | 2018-08-10 23:43 | CON ---
DATE OF CONSULTATION: HISTORY OF PRESENT ILLNESS: Josias Martinez is a 47-year-old male with end-stage renal disease. Dr. Dhillon tells me he only shows up for dialysis twice a week. His family tells me that he did like his College yesterday, so they had him transported to the emergency department. His mental status has progressively declined and he was transferred from his room to the intermediate care unit today. I was asked to see him in consultation. I examined him with the resident and felt that he would eventually before the today was over need intubation. He has moved to the critical care unit. He has been febrile since he was admitted. He has recently been admitted to [facility] with hypotension and encephalopathy. Cultures were all negative. His family was told that he had a bloodstream infection, but there are no records of any pathogens growing from the microbiology specimens at [facility]. He did have abdominal lymphadenopathy of unclear etiology. He went home on Omnicef, but did not take some of antibiotics apparently because he was having diarrhea. PAST MEDICAL HISTORY: Remarkable for, 1. End-stage renal disease secondary to diabetes. 2. History of multiple vascular access procedures. He has an exam suggestive of multiple tunneled catheters. 3. History of dialysis catheter infection in the past. 4. History of peripheral neuropathy. 5. History of bilateral BKA. Family says he has tremendous amount of edema in both of his stumps, they normally have. FAMILY HISTORY: Positive for breast cancer and ovarian cancer. SOCIAL HISTORY: He is nonsmoker and nondrinker. Lives with niece. ALLERGIES: HE HAS NO DRUG ALLERGIES. REVIEW OF SYSTEMS: Otherwise not obtainable. PHYSICAL EXAMINATION: GENERAL: He opens his eyes to sternal rub, but does not keep his eyes open. He is not receiving any sedating drugs. VITAL SIGNS: Blood pressure is 95/48, heart rate was in 80s, respiratory rate was in the teens, pressure dropped into the 60s, although the only place to get blood pressures is his right forearm. HEENT: Pupils are reactive. Sclerae anicteric. NECK: Without lymphadenopathy. LUNGS: Clear. HEART: Regular rhythm. S1 and S2, normal. ABDOMEN: Soft, very protuberant. EXTREMITIES: He has tremendous amount of edema in his stumps, normally occur. LABORATORY DATA: White count 6.7, hemoglobin 8.5, platelets 99. Sodium 136, potassium 4.7, chloride 95, bicarb 21, BUN 62, creatinine 9.1. PH 7.5, pCO2 of 26, pO2 of 82 this morning. Coags were normal. Hepatitis studies done on the negative. HIV is negative. ABDIRIZAK is negative. ANCA panel is negative. Double-stranded DNA is negative. Glomerular basement membrane is negative. IMPRESSION: 1. End-stage renal disease, on dialysis. 2. Vancomycin-resistant Enterococcus in the urine culture. I suspect this is a colonizer and not a pathogen. 3. One blood culture grew coag-negative staph. 4. Stool culture with Pseudomonas. 5. Clostridium difficile antigen positive, toxin negative. 6. Encephalopathy with fever of unclear etiology. I would think he might benefit from a lumbar puncture, but Infectious Disease has been consulted. An argument against him having meningitis or encephalitis would be that he had similar symptoms at [facility] and it has gradually resolved. I have recommended intubation and eventual central line placement for the days over. He has 2 small IVs in each upper extremity. Probably a difficult access given the appears to have multiple tunnel catheter placements in both sides of his chest. CRITICAL CARE TIME: 30 minutes. We will follow along with the other physicians caring for him. I met with family and answered all their questions. Job ID: [id number]
[2018-08-11] MEDS: Piperacillin/Tazobactam 2.25 GM in Sodium Chloride 0.9% 100 ML IVPB SCH ×4 (01:20→23:10)
[2018-08-11] MEDS: Vancomycin HCl 25 MG/ML Oral PO SCH ×5 (01:47→23:10)
[2018-08-11 04:43] LABS: Anion Gap 23 mmol/L (10-20); BUN (Urea Nitrogen) 69 mg/dL (8.9-20.6); Calc. Creatinine Clearance 19 mL/min (70-130); Calcium 6.7 mg/dL (7.8-10.44); Carbon Dioxide 21 mmol/L (22-29); Chloride 98 mmol/L (98-107); Estimated GFR-MDRD 7; Glucose 89 mg/dL (70-105); Potassium 4.5 mmol/L (3.5-5.1); Sodium 137 mmol/L (136-145)
[2018-08-11 04:48] LABS: Band 15 % (5-11); Eosinophils 2 % (0-10); Hemoglobin 7.9 g/dL (14.0-18.0); Lymphocytes 25 % (21-51); MDiff Complete? YES; Mean Corpuscular HGB CONC 32.6 g/dL (32.0-36.0); Mean Corpuscular Hemoglobin 26.9 pg (27.0-31.0); Mean Corpuscular Volume 82.5 fL (78.0-98.0); Mean Platelet Volume 7.9 fL (7.4-10.4); Metamyelocyte 1 % (0-0); Monocytes 3 % (0-10); Neutrophil 54 % (42-75); Platelet Count 111 thou/uL (130-400); Platelet Morphology Comment Appears Decreased; RBC Distribution Width 20.5 % (11.5-14.5); Red Blood Cell (RBC) Count 2.93 mill/uL (4.70-6.10); White Blood Cell (WBC) Count 8.4 thou/uL (4.8-10.8)
[2018-08-11 07:24] LABS: Actual Bicarbonate (HCO3a) 20.7 mEq/L (22-28); Base Excess (BEa) -3.7 mEq/L (-2.0 to +3.0); CO2 Tension 34.8 mmHg (35.0-45.0); Calcium, Ionized 0.87 mmol/L (1.12-1.30); Carboxyhemoglobin (COHb) 1.5 gm% (0.0-3.0); Hemoglobin (Hb) 8.6 g/dL (14.0-18.0); O2 Tension (PaO2) 64.1 mmHg (80.0-100.0); Potassium - ABG Lab 4.55 mmol/L (3.70-5.30); pH, Arterial 7.39 (7.35-7.45)
--- NOTE | 2018-08-11 07:25 | PRG ---
DATE OF SERVICE: 08/10/2018 SUBJECTIVE: This is a 47-year-old obese, male, hospitalized with altered mental status, hypotension, abnormal LFTs, and diarrhea. The patient was found to be responsive and sleepy in the floor and was transferred to the MICU. The patient was seen in the MICU. The patient is very sleepy and not responding to painful swallowing. However, he does not seem to be in distress. BP is even. OBJECTIVE: VITAL SIGNS: His pulse is around 76, blood pressure has dropped to 94/61. CARDIOVASCULAR SYSTEM: First and second heart sounds are normal. LUNGS: Clear to auscultation. ABDOMEN: Soft. Abdomen is nondistended. Abdomen is nontender. LABORATORY DATA: Show no leukocytosis. WBC 6900, hemoglobin 8.5, and hematocrit 26.2. His Chem-7 shows potassium 4.7, BUN is 62, creatinine is 9.17. Blood sugar was 80. His liver function tests are elevated. The bilirubin level is 4.9, AST is 264, ALT 47, alkaline phosphatase 235. Albumin 2.3. His chest x-ray done today is unremarkable. The patient's stool studies show no C difficile toxin, but the antigen is positive. Also, the Campylobacter antigen came back negative. Shiga toxin is negative. IMPRESSION: 1. Abnormal LFTs felt to be due to shocked liver, hypotension, and possibility of fatty liver and . 2. Diarrhea with negative stool studies including C difficile toxin, but the antigen is positive. Patient has been on vancomycin since yesterday. 3. Altered mental status, . Chest x-ray is unremarkable. RECOMMENDATIONS: Pulmonary consult and await all their input. In the meantime, we would recommend supportive care. Job ID: [id number]
--- NOTE | 2018-08-11 07:38 | OP ---
DATE OF PROCEDURE: 08/10/2018 PROCEDURE PERFORMED: Femoral central line. INDICATION: Hypertension. PROCEDURE BATTERY MECHANIC: Dr. Mario Alberto Vincent. ATTENDING PHYSICIAN: Dr. Johnathan Hoffmann, in attendance for the procedure. CONSENT: Consent was implied given the emergent nature of the procedure. PROCEDURE SUMMARY: A time-out was performed. My hands were washed immediately prior to the procedure. I wore a surgical cap, mask with protective eye wear, sterile gown, and sterile gloves throughout the procedure. The right inguinal region was prepped using chlorhexidine scrub and draped in a sterile fashion using a full drape and sterile probe cover. The femoral pulse was identified and the femoral vein was identified using ultrasound guidance. The patient was on sedation for mechanical ventilation. As such, no local anesthesia was used. Palpating the femoral pulse throughout the procedure, the introducing needle was inserted medial femoral artery and slightly inferior to the inguinal crease into the femoral vein. Venous blood was withdrawn. The syringe was removed and a guidewire was advanced into the introducer needle. A small incision was made at the skin surface with a scalpel and the introducer needle was exchanged for dilator over the guidewire. Appropriate dilation was obtained. The dilator was exchanged over the wire for a central venous catheter. The wire was removed and the catheter was sutured in place. The patient tolerated the procedure well without any hemodynamic compromise. At the time of procedure completion, all ports aspirated and flushed properly. ESTIMATED BLOOD LOSS: 10 mL. CO-SURGEON: Dr. Johnathan Hoffmann. Job ID: [id number]
--- NOTE | 2018-08-11 07:38 | OP ---
DATE OF PROCEDURE: 08/10/2018 Fiberoptic bronchoscope was brought to bedside. Endotracheal tube attached over the bronchoscope. A bite block was placed in his mouth. His vocal cords were easily visualized. The bronchoscope was introduced into the oral airway and passed into the trachea easily followed by 7.5 endotracheal tube which was secured above the main ivet. Copious salivary secretions were suctioned from the trachea. The distal airways were all clear. He tolerated the intubation well. He was preloaded with IV fluids prior to intubation. There was no significant hypotension. Job ID: [id number]
--- NOTE | 2018-08-11 08:04 | PDOC.EVN ---
Addendum - Attending - Attending Attestation Date/Time: 08/11/18 0800 I personally evaluated the patient and discussed the management with Dr. Vincent. I agree with the History, Examination, Assessment and Plan documented in his progress note with any addition or exceptions noted below. Patient with history of ESRD on HD, PVD s/p b/l amputation, DM2, HTN here for the last few days with concerns for toxic metabolic encephalopathy and concern for sepsis 2/2 Cdiff colitis versus VRE UTI. Yesterday, he had worsening in his status as well as low BP and inability to protect airway. He was intubated and transferred to CCU. This morning, he is arousable and gives a "thumbs up". His blood pressures are meeting MAP goals on 10 of Levophed, up somewhat from the 5 he was on last night. We are being gentle with his IVF due to his ESRD status, will discuss with Nephro today the need to either give fluids with HD or potentially just filter blood without fluid removal. Labs overall stable. He did run fever overnight, and was recultured, NGTD. Continue Vent support per Pulm and await further recs from ID as they are now on board with his worsening infection. He continues on Zyvox for VRE infection, PO Vanc per GI recs for Cdiff, and Zosyn that was added yesterday with concerns of worsening status. PCT elevated to over 4 yesterday, repeat pending today.
[2018-08-11] MEDS: Folic Acid 1 MG TAB PO SCH (09:34)
[2018-08-11] MEDS: Gabapentin 300 MG CAP PO SCH (09:34)
[2018-08-11] MEDS: Pantoprazole 40 MG GRANULES PACKET PO SCH (09:34)
[2018-08-11] MEDS: Linezolid 600 MG in Premix Bag 1 BAG IVPB SCH ×2 (09:35→20:40)
[2018-08-11] MEDS: Sodium Chloride 0.9% 1,000 ML IV SCH ×2 (09:35→14:35)
[2018-08-11] MEDS: Fluticasone Propionate Nasal Spray 16 gm Bottle NASAL SCH (09:35)
[2018-08-11] MEDS: Acetaminophen 325 MG TAB PO PRN ×2 (09:43→22:15)
--- NOTE | 2018-08-11 11:10 | PDOC.FM ---
- Subjective Subjective: 47 yo M transferred to ICU after intubation 2/2 encephalopathy and failure to protect his airway. Pt addtionally had low BPs yesterday and central line access was obtained. Overnight pt remained intubated and on pressor support increased from 5 to 10 of levophed. Per nephro, plan for fluid removal with dialysis and dialysis today. - Objective MAR Reviewed: Yes Vital Signs & Weight: Vital Signs (12 hours) Temp Pulse Resp BP 08/11/18 10:59 96 103/59 L 08/11/18 08:00 101.5 F H 08/11/18 07:05 96 94/54 L 08/11/18 06:00 23 H 08/11/18 05:00 97.6 F 08/11/18 04:00 26 H 08/11/18 02:00 20 08/11/18 00:46 16 Weight Admit Weight 150.366 kg Weight 145.4 g Most Recent Monitor Data Heart Rate from ECG 97 NIBP 96/54 NIBP BP-Mean 68 Respiration from ECG 29 SpO2 98 I&O: 08/10/18 08/11/18 08/12/18 06:59 06:59 06:59 Intake Total 1278 4636 Output Total 2000 500 Balance -722 4136 Result Diagrams: 08/11/18 04:21 08/11/18 04:21 Phys Exam - Physical Examination Sedated, intubated HEENT: PERRLA, moist MMs, sclera anicteric Intubated Neck: no JVD scattered rales Cardiovascular: RRR, no significant murmur, no rub Gastrointestinal: soft, non-tender, no distention, positive bowel sounds Musculoskeletal: edema present b/l BKA Neurological: non-focal, moves all 4 limbs Deviation from normal: sedated, follows commands Deviation from normal: numerous chest keloids from previous tunnel catheters vs central line Dx/Plan (1) Acute on chronic respiratory failure with hypoxia Code(s): J96.21 - ACUTE AND CHRONIC RESPIRATORY FAILURE WITH HYPOXIA Status: Acute (2) Encephalopathy acute Code(s): G93.40 - ENCEPHALOPATHY, UNSPECIFIED Status: Acute (3) Sepsis Code(s): A41.9 - SEPSIS, UNSPECIFIED ORGANISM Status: Acute (4) Transaminitis Code(s): R74.0 - NONSPEC ELEV OF LEVELS OF TRANSAMNS & LACTIC ACID DEHYDRGNSE Status: Acute (5) Diabetes mellitus with insulin therapy Code(s): E11.9 - TYPE 2 DIABETES MELLITUS WITHOUT COMPLICATIONS; Z79.4 - HALF-WAY (CURRENT) USE OF INSULIN Status: Chronic (6) ESRD (end stage renal disease) Code(s): N18.6 - END STAGE RENAL DISEASE Status: Chronic - Plan Plan: Sepsis - Possibly 2/2 C. diff colitis vs vre although pt is covered for extensive gram positives and VRE as well as pseudomonas and C diff and procalcitonin continues to uptrend, concerned for lingering resitant infection. - Hx of recent bactermia at the med per pt hx with inadequate ABX use after discharge - ID is following, appreciate recs. - continue pressor support Diarrhea - cotn po vanc, GI following, appreciate recs Hypoxic respiratory failure - remains intubated/sedated - FiO2 40%, cont vent - pulm consulted, appreciate recs Thrombocytopenia - stable, cont heparin elevated BNP - echo pending ESRD - per nephro, fluid removal with dialysis today in hopes improved volume status will improve BP Elevated transaminases - possibly lingering effects of previous hypotensive episoides at the med. Pt had recurrence of hypotension. Shock liver vs congestive hepatopathy - consult GI, appreciate recs DM2 - SSI, accuchecks PVD - home meds Dispo: Guarded, pt continues to have low BP and requiring increase pressor support. This in context of rising procalcitonin. Will await ID recs. CODE: FULL
--- NOTE | 2018-08-11 12:44 | PRG ---
DATE OF SERVICE: 08/11/2018 SUBJECTIVE: A 47-year-old male being seen for end-stage renal disease. The patient remains intubated. OBJECTIVE: GENERAL: The patient is resting well, comfortable. VITAL SIGNS: Pulse 96, breathing 16, and blood pressure 113/59. HEAD: Normocephalic and atraumatic. NECK: Supple. No JVD. CHEST: Symmetrical and clear. CARDIOVASCULAR: Shows S1 and S2. ABDOMEN: Globular. EXTREMITIES: Shows edema. LABORATORY DATA: Labs show, hemoglobin 7.9. Potassium 4.0. IMPRESSION AND PLAN: 1. Stage 6 chronic kidney disease, plan dialysis if blood pressure will tolerate. 2. Hypertension/sepsis on pressors. 3. Anemia, stable. We will consider transfusing 1 unit of packed red blood cells due to multiple comorbidities. Job ID: [id number]
[2018-08-11] MEDS: Epoetin (ESRD) 10,000 UNITS/ML VIAL IVP SCH (13:06)
[2018-08-11] MEDS: Norepinephrine 8 MG/0.9% NS 250 ML IVPB SCH ×2 (13:06→21:56)
[2018-08-11] MEDS: fentaNYL Citrate/PF 2,000 MCG in Sodium Chloride 0.9% 60 ML IV SCH (14:26)
--- NOTE | 2018-08-11 15:39 | PRG ---
DATE OF SERVICE: 08/11/2018 SUBJECTIVE: This is a 47-year-old male with chronic kidney disease on dialysis. He also has had diabetes, peripheral vascular disease, status post amputation of both legs in the past. He was hospitalized because of diarrhea, altered mental status. He became hypotensive yesterday and has been re-intubated. He is on the ventilator and is being sedated. He is on vasopressors to keep blood pressure up. He is passing very large amount of dark liquid stool. He has a rectal tube, and he got a 400 mL of dark liquid stool seen in the colostomy bag. Stool study shows Pseudomonas species in the stools, probably not a pathogen. He also has had positive blood cultures again felt to be not contaminant. The patient's stool came back positive for C. difficile antigen, but the tox is negative. He is empirically started on vancomycin. OBJECTIVE: GENERAL: He is obese. He is on the ventilator. VITAL SIGNS: Pulse is 96 and blood pressure 103/59. CARDIOVASCULAR: Lungs within normal limits. ABDOMEN: Abdomen is nontender. LABORATORY DATA: From today, CBC; WBC 6700, hemoglobin 8.5, hematocrit 22.2, platelet count is 99,000. Bandemia is 23%. Chem-7; BUN is 69, bicarb is 21, creatinine is 9.74, and calcium 6.7. CLINICAL IMPRESSION: 1. Sepsis, source unclear at the present time. 2. Hypotension. 3. Altered mental status. 4. Diarrhea, positive Clostridium difficile antigen, but toxin is negative. He is empirically placed on vancomycin. He is also on broad-spectrum antibiotics. RECOMMENDATIONS: Continue his ventilator support and antibiotics. Liver function tests elevated, and also he has mild thrombocytopenia. Job ID: [id number]
--- NOTE | 2018-08-11 17:22 | PRG ---
DATE OF SERVICE: 08/11/2018 SUBJECTIVE: Mr. Martinez developed tachypnea and respiratory failure, had to be intubated in an emergency basis yesterday. He was transferred to the ICU, and now he seems to be awake and he looks around, establishes eye contact, but he does not follow commands just yet. This is after a sedation holiday. OBJECTIVE: VITAL SIGNS: He is still having temperature elevation intermittently up to 102 yesterday and today up to 101.5. He had been on pressors. Blood pressure 103/65. HEENT: His ocular movements are conjugate. Sclerae white. Pupils are about 2 mm and reactive. LUNGS: Symmetric air entry. HEART: S1 and S2, regular rate. ABDOMEN: Soft. He has a groin line, which is supposed to be removed. EXTREMITIES: He has bilateral amputations in the lower extremities. LABORATORY DATA: White cell count is 8.4, hemoglobin 7.9, platelets 111, 54% neutrophils, and 15% bands, and sodium 137, creatinine 9.74. HIV serology nonreactive. Autoimmune serology negative. Microbiology with stool culture, Pseudomonas aeruginosa of unlikely to be pertinent to the current process. Coagulase negative Staph in blood cultures, which is likely contaminant and vancomycin-resistant Enterococcus also of uncertain meaning to the patient's current presentation, although we are treating it right now. Two sets of blood cultures are obtained in addition to the original ones, and I do not think we have any further imaging studies. ASSESSMENT AND PLAN: End-stage renal disease secondary to type 2 diabetes, on hemodialysis with an AV fistula and recent admission to [facility] with hypotension and hypoxemia with abnormalities in CT of abdomen suggestive of pathologic lymphadenopathy without precise diagnosis having been established and similar presentation with altered mental status, weakness, abnormal liver function, and now sepsis-like syndrome with elevated bilirubin and hypotension, respiratory failure, urine culture with VRE. The possibility of line colonization with bacteremia, fungemia is considered possible, and we will add antifungal coverage if not done yet. Continue the remainder of his treatment schedule. Eventually, we will need a CT of abdomen and pelvis to follow up this abnormality seen at [facility]. Job ID: [id number] MTDD
[2018-08-11] MEDS: Micafungin 100 MG in Sodium Chloride 0.9% 100 ML IVPB SCH (17:27)
[2018-08-11] MEDS: Lorazepam 2 MG/ML VIAL SLOW IVP PRN ×2 (18:44→20:39)
[2018-08-11] MEDS: Propofol 1,000 MG/100 ML VIAL IV PRN (20:59)
[2018-08-12] MEDS: fentaNYL Citrate/PF 2,000 MCG in Sodium Chloride 0.9% 60 ML IV SCH ×3 (00:34→22:16)
[2018-08-12] MEDS: Propofol 1,000 MG/100 ML VIAL IV PRN ×2 (03:45→16:00)
[2018-08-12] MEDS: Vancomycin HCl 25 MG/ML Oral PO SCH ×3 (05:45→18:14)
[2018-08-12] MEDS: Norepinephrine 8 MG/0.9% NS 250 ML IVPB SCH ×2 (06:04→17:27)
[2018-08-12 06:23] LABS: #Basophils 0.1 thou/uL (0.0-0.2); #Eosinphils 0.1 thou/uL (0.0-0.7); #Lymphocytes 4.1 thou/uL (1.20-3.40); #Monocytes 0.7 thou/uL (0.11-0.59); %Basophils 0.7 % (0.0-1.0); %Eosinophils 0.8 % (0.0-10.0); %Lymphocytes 24.1 % (21.0-51.0); %Monocytes 4.3 % (0.0-10.0); %Neutrophils 70.2 % (42.0-75.0); Hemoglobin 8.6 g/dL (14.0-18.0); Mean Corpuscular HGB CONC 32.5 g/dL (32.0-36.0); Mean Corpuscular Hemoglobin 27.4 pg (27.0-31.0); Mean Corpuscular Volume 84.6 fL (78.0-98.0); Mean Platelet Volume 8.3 fL (7.4-10.4); Platelet Count 119 thou/uL (130-400); Red Blood Cell (RBC) Count 3.11 mill/uL (4.70-6.10); White Blood Cell (WBC) Count 17.1 thou/uL (4.8-10.8)
[2018-08-12 06:32] LABS: Base Excess (BEa) -7.8 mEq/L (-2.0 to +3.0); CO2 Tension 37.4 mmHg (35.0-45.0); Calcium, Ionized 0.88 mmol/L (1.12-1.30); Carboxyhemoglobin (COHb) 1.4 gm% (0.0-3.0); O2 Tension (PaO2) 67.3 mmHg (80.0-100.0); Potassium - ABG Lab 4.55 mmol/L (3.70-5.30)
[2018-08-12 06:33] LABS: Puncture Site RRA
[2018-08-12 06:37] LABS: Anion Gap 24 mmol/L (10-20); BUN (Urea Nitrogen) 56 mg/dL (8.9-20.6); Calc. Creatinine Clearance 21 mL/min (70-130); Calcium 6.6 mg/dL (7.8-10.44); Carbon Dioxide 19 mmol/L (22-29); Chloride 98 mmol/L (98-107); Estimated GFR-MDRD 8; Glucose 71 mg/dL (70-105); Potassium 4.5 mmol/L (3.5-5.1); Sodium 136 mmol/L (136-145)
--- NOTE | 2018-08-12 07:18 | PDOC.FM ---
- Subjective Subjective: Pt has required increase in levophed. Otherwise, EMERITA overnight. - Objective MAR Reviewed: Yes Vital Signs & Weight: Vital Signs (12 hours) Temp Resp Pulse Ox 08/12/18 06:00 19 08/12/18 04:00 24 H 08/12/18 03:00 98.7 F 08/12/18 02:00 23 H 08/12/18 00:00 26 H 08/11/18 23:00 100.7 F H 08/11/18 22:00 28 H 08/11/18 20:00 21 H 95 Weight Admit Weight 150.366 kg Weight 146.3 kg Most Recent Monitor Data Heart Rate from ECG 107 NIBP 122/65 NIBP BP-Mean 84 Respiration from ECG 23 SpO2 95 I&O: 08/11/18 08/12/18 08/13/18 06:59 06:59 06:59 Intake Total 4636 2856.7 Output Total 500 Balance 4136 2856.7 Result Diagrams: 08/12/18 05:46 08/12/18 05:46 Phys Exam - Physical Examination sedated HEENT: moist MMs Neck: no nodes, no JVD Respiratory: no wheezing, no rales, no rhonchi, clear to auscultation bilateral Cardiovascular: RRR, no significant murmur, no rub Gastrointestinal: soft, non-tender, no distention, positive bowel sounds Musculoskeletal: pulses present, edema present sedated, withdraws from painful stimuli Lymphatic: no nodes Skin: no rash, cap refill <2 seconds Deviation from normal: sacral decubiti b/l Dx/Plan (1) Acute on chronic respiratory failure with hypoxia Code(s): J96.21 - ACUTE AND CHRONIC RESPIRATORY FAILURE WITH HYPOXIA Status: Acute (2) Sepsis Code(s): A41.9 - SEPSIS, UNSPECIFIED ORGANISM Status: Acute (3) Encephalopathy acute Code(s): G93.40 - ENCEPHALOPATHY, UNSPECIFIED Status: Acute (4) Transaminitis Code(s): R74.0 - NONSPEC ELEV OF LEVELS OF TRANSAMNS & LACTIC ACID DEHYDRGNSE Status: Acute (5) Diabetes mellitus with insulin therapy Code(s): E11.9 - TYPE 2 DIABETES MELLITUS WITHOUT COMPLICATIONS; Z79.4 - REVERSE LOGISTICS ANALYST (CURRENT) USE OF INSULIN Status: Chronic (6) ESRD (end stage renal disease) Code(s): N18.6 - END STAGE RENAL DISEASE Status: Chronic - Plan Plan: 1) SIRS - unknown etiology - will further evaluate with CT abd pelvis w/ contrast - pt is on broad spectrum abx and added antifungal coverage yesterday, continues to have increasing procalcitonin and suspect infectious etiology vs occult malignancy 2) Encephalopathy: - remains intubated for airway protection - likely related to hypotension - pt currently sedated on mechanical vent 3)Respiratory failure - 2/2 encephalopathy 4) ESRD on dialysis: - dialysis yesterday, cont per nephro recs 5) DMII - pt borderline hypoglycemic, monitor sugars - initiate tube feeds today Dispo: guarded, pt continues to be hypotensive with worsening signs of infection , will send for ct scan today, check lactate and check LFTs. Appreciate, GI, Nephro and ID recs. Addendum - Attending - Attending Attestation Date/Time: 08/12/18 0083 I personally evaluated the patient and discussed the management with Dr. Vincent. I agree with the History, Examination, Assessment and Plan documented above with any addition or exceptions noted below. Patient overall stable this morning. Continues to spike fevers despite broad spectrum gram positive and negative coverage in addition to antifungal coverage. His PCT is slowly uptrending. Cultures obtained and are so far negative. Will work to obtain CT abdomen/pelvis today to further evaluate for hidden infection versus possible malignancy. Awaiting further recs from ID and Pulm, continue Vent mgmt for now. Echo resulted. He has had some increase in his Levophed dosing this morning so need to ensure he is euvolemic, difficult due to his ESRD status.
[2018-08-12 07:56] LABS: ALT (SGPT) 71 U/L (8-55); AST (SGOT) 395 U/L (5-34); Albumin 2.1 g/dL (3.5-5.0); Alkaline Phosphatase 202 U/L (40-150); Bilirubin, Direct 3.5 mg/dL (0.1-0.3); Bilirubin, Total 4.4 mg/dL (0.2-1.2); Protein, Total 4.9 g/dL (6.0-8.3)
[2018-08-12] MEDS: Fluticasone Propionate Nasal Spray 16 gm Bottle NASAL SCH (09:00)
[2018-08-12] MEDS: Folic Acid 1 MG TAB PO SCH (09:00)
[2018-08-12] MEDS: Gabapentin 300 MG CAP PO SCH (09:00)
[2018-08-12] MEDS: Pantoprazole 40 MG GRANULES PACKET PO SCH (09:00)
[2018-08-12] MEDS: Piperacillin/Tazobactam 2.25 GM in Sodium Chloride 0.9% 100 ML IVPB SCH ×2 (09:15→16:03)
[2018-08-12] MEDS: Linezolid 600 MG in Premix Bag 1 BAG IVPB SCH ×2 (09:16→20:43)
[2018-08-12] MEDS: Dextrose 50% Abboject 50 ML SYRINGE SLOW IVP PRN (09:41)
[2018-08-12 10:02] LABS: Lactic Acid 5.8 mmol/L (0.5-2.2)
--- NOTE | 2018-08-12 10:53 | PRG ---
DATE OF SERVICE: 08/11/2018 SUBJECTIVE: Mr. Martinez remains on pressors. He is still encephalopathic, but he started to follow commands and open his eyes. He needs better line access. Put in a consult for PICC line. He is left to go on in his left upper extremity. I hate to do this in a dialysis patient, but there is limited access available. OBJECTIVE: LUNGS: Clear. HEART: Regular rhythm. ABDOMEN: Soft. EXTREMITIES: Without edema. LABORATORY DATA: White count 8.4, hemoglobin 7.9, and platelets 111. Potassium is 4.5, BUN 66, creatinine is 8.83. IMPRESSION: 1. Clinical sepsis with one positive blood culture and two negative blood cultures. 2. Vancomycin resistant enterococcus, probably colonized in his bladder. 3. Obesity. 4. End-stage renal disease with marginal dialysis compliance. 5. Elevated liver enzymes. PLAN: Continue supportive care. He is currently not weanable. Critical care time is 35 minutes. Job ID: [id number] MTDD
--- NOTE | 2018-08-12 11:12 | PRG ---
DATE OF SERVICE: 08/12/2018 SUBJECTIVE: A 47-year-old gentleman being seen for end-stage renal disease. The patient remains intubated. OBJECTIVE: GENERAL: The patient is resting well. VITAL SIGNS: Show temperature 101.8, pulse 77, breathing 16, and blood pressure 114/67. GENERAL APPEARANCE AND MENTAL STATUS: Fair. HEAD/NECK: Normocephalic. Atraumatic. EYES: EOMI. No deformity. EARS: Clear. No ulcers. NOSE: Intact. No lesions. MOUTH: Clear. No discharge. THROAT: Clear. No exudate. LUNGS: Clear. No crackles. CARDIAC: S1, S2. No rub. ABDOMEN: Benign. Bowel sounds positive. GENITALIA/RECTUM: Choe absent. BACK/EXTREMITIES: Edema 0+. NEUROLOGICAL: Alert and motor intact. SKIN: LYMPHATICS: LABORATORY DATA: Labs show hemoglobin 8.6. Creatinine 8.8. ASSESSMENT AND PLAN: 1. Stage 6 chronic kidney disease. Plan dialysis tomorrow. 2. Hypertension, stable. 3. Anemia, stable. 4. Sepsis, management per primary team. Job ID: [id number]
--- NOTE | 2018-08-12 12:24 | CT ---
CT ABDOMEN AND PELVIS WITH IV CONTRAST: Date: 08/12/18 Multiple axial tomograms obtained through abdomen and pelvis with IV enhancement. INDICATION: Fever of unknown source. Transaminitis. Comparison made to CT abdomen and pelvis dated 07/14/17. FINDINGS: Images through the lung bases reveal posterior lung infiltrates or dense atelectasis. Posterior basil ar pneumonia should be considered. Liver is mildly enlarged with low attenuation, indicating diffuse fatty infiltration. Spleen and pancreas are unremarkable. Adrenal glands are normal. Kidneys show no evidence of hydronephrosis. There is an abnormal area of low cortical attenuation in the posterior left renal cortex which has a similar appearance to the prior study. This is not a defi rosey cyst and there is no evidence of enhancement. Focal pyelonephritis is a consideration. There is prominent perinephric stranding, which was also noted on the prior exam, suggesting perineph mary inflammation. There is retroperitoneal haziness and stranding, which is more prominent today. There is new retroper itoneal adenopathy today when compared to the prior study. Large lymph nodes posterior to the vena ca va in the mid abdomen measure up to 3.0 cm. There are enlarged aortocaval nodes and enlarged paraaort ic nodes throughout the mid abdomen. There is significant adenopathy seen in the right iliac chain. There are numerous enlarged lymph node s, one of which measures 5-6 cm, in the upper right pelvic region. In addition, there is massive right inguinal adenopathy seen today. There were enlarged inguinal lymp h nodes seen on the prior study of 07/14/17; however, these lymph nodes have significantly increased in size and number. One area of confluent adenopathy in the right inguinal region measures up to 10.0 cm AP dimension. There is subcutaneous haziness and stranding suggesting edema. Umbilical hernia again noted. Osseous structures unremarkable. IMPRESSION: 1. Bibasilar lung opacities consistent with dense atelectasis and/or consolidation. 2. Retroperitoneal adenopathy is more prominent today. Significant right iliac chain adenopathy in t he right pelvis and there is massive right inguinal adenopathy seen today. There were nonspecific lym ph nodes in the retroperitoneum and right iliac chain on 07/14/17 and there were enlarged right ingui nal lymph nodes seen on that study. The adenopathy has significantly increased since that exam. 3. Diffuse subcutaneous stranding and haziness suggesting anasarca/edema. 4. Retroperitoneal haziness suggesting retroperitoneal fasciitis or fibrosis. This is a new finding from the prior study. 5. Perinephric stranding and haziness consistent with perinephric inflammation. There is a focal are a of low attenuation in the posterior left renal cortex which could represent focal pyelonephritis. POS: YANCY
[2018-08-12] MEDS: Dextrose 5 % And 0.9 % NaCl 1,000 ML IV SCH (13:17)
[2018-08-12] MEDS ORDERED: Acetaminophen 325 MG Suppository PR PRN (13:52)
[2018-08-12] MEDS ORDERED: ISOVUE-370 76%-LOCM 1 ML ONE (14:26)
[2018-08-12] MEDS ORDERED: Lidocaine 1% w/Epinephrine 1:100K 20 ML VIAL ONE (14:54)
--- NOTE | 2018-08-12 16:03 | PRG ---
DATE OF SERVICE: 08/12/2018 SUBJECTIVE: Mr. Martinez is still on pressors. OBJECTIVE: VITAL SIGNS: Heart rate is 105, blood pressure 106/66, respiratory rates in the teens. LUNGS: Clear anteriorly. HEART: Regular rhythm. ABDOMEN: Soft and massive. EXTREMITIES: Edematous stumps. LABORATORY DATA: White count 17.1, hemoglobin 8.6, platelets 119. Sodium 136, potassium 4.5, chloride 98, bicarb 19, BUN 56, creatinine 8.83, bilirubin is 4.4, AST is 395, ALT is 71, alkaline phosphatase 202, albumin is 2.1. We will try adding salt-poor albumin and see if this leads to more successive weaning Levophed. Cultures remain negative and we will have a clear explanation for his clinical sepsis. I would wonder if he had an access site infection for dialysis, we will continue to follow. There are no good IV access possibilities in him. He is probably likely going to need long-term IV antibiotics and has had multiple procedures involving his internal jugular veins and subclavian veins. A PICC line is probably the best of all the options and they are all bad. CRITICAL CARE TIME: 30 minutes. Job ID: [id number]
[2018-08-12] MEDS: Albumin 25% 25 GM/100 ML BOT IVPB SCH (17:26)
[2018-08-12] MEDS: Micafungin 100 MG in Sodium Chloride 0.9% 100 ML IVPB SCH (17:26)
[2018-08-12] MEDS ORDERED: Lidocaine 1% (PF) 30 ML VIAL FS SCH (17:30)
[2018-08-12] MEDS ORDERED: Heparin 1,000 UNITS/ML VIAL ONE (18:00)
--- NOTE | 2018-08-12 18:18 | PRG ---
DATE OF SERVICE: 08/12/2018 SUBJECTIVE: Mr. Martinez is still on Levophed in the ICU, intubated. OBJECTIVE: VITAL SIGNS: Temperature max 101.8, blood pressure 114/76, pulse 105, respirations 14 to 18, O2 saturation 95%. LUNGS: He has bilateral lung sounds, somewhat coarse. HEART: Diminished heart sounds. S1, S2. ABDOMEN: Slightly distended. Bowel sounds are diminished. LABORATORY DATA: White cell count is at 17.1, hemoglobin 8.6, platelets 119 with 70% neutrophils. Creatinine is at 8.83. Lactic acid 5.8. AST 395, ALT 71, alkaline phosphatase 202, albumin 2.1. The abdomen and pelvis CT demonstrated prominent retroperitoneal adenopathy and right iliac chain adenopathy with massive right inguinal adenopathy seen. There was some retroperitoneal haziness as well and some perinephric stranding. ASSESSMENT AND DISCUSSION: End-stage renal disease secondary to type 2 diabetes on hemodialysis, recent admission to [facility] with hypotension, hypoxemia. CT of the abdomen abnormalities indicative of pathologic lymphadenopathy. These have been confirmed and the size of the lymph nodes has markedly increased since. This would be suggestive of lymphoproliferative disorder, for example, B-cell lymphoma and possibility of metastatic solid organ malignancy would be another possibility. The diagnosis would require pathology evaluation either from core biopsy of the lymph node or just an excisional biopsy, not sure he is a candidate for that at this point in time in view of his requirement of vasopressors. The persistence of fever, therefore, may be related to lymphoproliferative disorder rather than infection. Job ID: [id number]
[2018-08-12] MEDS: Pantoprazole 40 MG VIAL IVP SCH (20:44)
[2018-08-13] MEDS: Vancomycin HCl 25 MG/ML Oral PO SCH ×3 (00:47→12:36)
[2018-08-13] MEDS: Albumin 25% 25 GM/100 ML BOT IVPB SCH ×4 (00:47→18:55)
[2018-08-13] MEDS: Piperacillin/Tazobactam 2.25 GM in Sodium Chloride 0.9% 100 ML IVPB SCH ×3 (00:48→15:59)
[2018-08-13] MEDS: Norepinephrine 8 MG/0.9% NS 250 ML IVPB SCH ×3 (02:30→18:54)
[2018-08-13] MEDS: Propofol 1,000 MG/100 ML VIAL IV PRN ×2 (02:30→15:20)
[2018-08-13 05:09] LABS: ALT (SGPT) 57 U/L (8-55); AST (SGOT) 336 U/L (5-34); Albumin 2.4 g/dL (3.5-5.0); Alkaline Phosphatase 157 U/L (40-150); Anion Gap 26 mmol/L (10-20); BUN (Urea Nitrogen) 64 mg/dL (8.9-20.6); Bilirubin, Total 4.6 mg/dL (0.2-1.2); Calc. Creatinine Clearance 18 mL/min (70-130); Calcium 6.5 mg/dL (7.8-10.44); Carbon Dioxide 16 mmol/L (22-29); Chloride 98 mmol/L (98-107); Estimated GFR-MDRD 7; Globulin 2.5 g/dL (2.4-3.5); Glucose 98 mg/dL (70-105); Potassium 5.1 mmol/L (3.5-5.1); Protein, Total 4.9 g/dL (6.0-8.3); Sodium 135 mmol/L (136-145)
[2018-08-13 05:17] LABS: Anisocytosis MODERATE=16-30 cells (100X) (0-5/hpf); Band 21 % (5-11); Hemoglobin 7.4 g/dL (14.0-18.0); Lymphocytes 12 % (21-51); MDiff Complete? YES; Mean Corpuscular HGB CONC 31.6 g/dL (32.0-36.0); Mean Corpuscular Hemoglobin 27.5 pg (27.0-31.0); Mean Corpuscular Volume 87.2 fL (78.0-98.0); Mean Platelet Volume 11.3 fL (7.4-10.4); Monocytes 6 % (0-10); Neutrophil 61 % (42-75); Nucleated RBC 1 % (0); Platelet Count 123 thou/uL (130-400); Polychromasia SLIGHT = 2-3 cells (100X) (0-2/hpf); RBC Distribution Width 21.7 % (11.5-14.5); Red Blood Cell (RBC) Count 2.67 mill/uL (4.70-6.10); White Blood Cell (WBC) Count 21.9 thou/uL (4.8-10.8)
[2018-08-13] MEDS: Dextrose 5 % And 0.9 % NaCl 1,000 ML IV SCH (06:11)
[2018-08-13 07:30] LABS: Base Excess (BEa) -11.3 mEq/L (-2.0 to +3.0); Calcium, Ionized 0.84 mmol/L (1.12-1.30); Hemoglobin (Hb) 7.3 g/dL (14.0-18.0); O2 Tension (PaO2) 78.8 mmHg (80.0-100.0); Potassium - ABG Lab 5.02 mmol/L (3.70-5.30)
[2018-08-13 07:33] LABS: pH, Arterial 7.14 (7.35-7.45)
--- NOTE | 2018-08-13 07:44 | PDOC.FM ---
- Subjective Subjective: No acute events overnight. Pt has maintained his current sedation although has become less responsive. He had CT yesterday which showed massive inguinal and para-aortic lymphadenopathy and bedside core biopsies were taken and pending. Spoke with family at bedside regarding his overall poor prognosis. - Objective Vital Signs & Weight: Vital Signs (12 hours) Temp Pulse Resp BP Pulse Ox 08/13/18 07:39 105 H 08/13/18 07:15 104 H 96/53 L 08/13/18 06:00 16 08/13/18 04:00 99.8 F H 14 08/13/18 02:00 14 08/13/18 00:00 100.0 F H 14 08/12/18 22:00 16 08/12/18 20:00 100.3 F H 16 96 Weight Admit Weight 150.366 kg Weight 151.7 kg Most Recent Monitor Data Heart Rate from ECG 101 NIBP 104/44 NIBP BP-Mean 64 Respiration from ECG 14 SpO2 99 I&O: 08/12/18 08/13/18 08/14/18 06:59 06:59 06:59 Intake Total 2968.0 3822 Output Total 200 Balance 2968.0 3622 Result Diagrams: 08/13/18 04:30 08/13/18 04:30 Phys Exam - Physical Examination Sedated intubated, OG tube in place Respiratory: no wheezing, no rales scattered rhonchi Cardiovascular: RRR, no significant murmur Gastrointestinal: soft, non-tender, no distention, positive bowel sounds Musculoskeletal: pulses present, edema present sedated, less responsive inguinal adenopathy Dx/Plan (1) Inguinal adenopathy Code(s): R59.0 - LOCALIZED ENLARGED LYMPH NODES Status: Acute (2) Acute on chronic respiratory failure with hypoxia Code(s): J96.21 - ACUTE AND CHRONIC RESPIRATORY FAILURE WITH HYPOXIA Status: Acute (3) Sepsis Code(s): A41.9 - SEPSIS, UNSPECIFIED ORGANISM Status: Ruled-out (4) Encephalopathy acute Code(s): G93.40 - ENCEPHALOPATHY, UNSPECIFIED Status: Acute (5) Transaminitis Code(s): R74.0 - NONSPEC ELEV OF LEVELS OF TRANSAMNS & LACTIC ACID DEHYDRGNSE Status: Acute (6) Diabetes mellitus with insulin therapy Code(s): E11.9 - TYPE 2 DIABETES MELLITUS WITHOUT COMPLICATIONS; Z79.4 - HAND WASHER (CURRENT) USE OF INSULIN Status: Chronic (7) ESRD (end stage renal disease) Code(s): N18.6 - END STAGE RENAL DISEASE Status: Chronic - Plan Plan: 1) Inguinal adenopathy: - pt had bedside core biopsy done yesterday and those results are pending - given rapid expansion of lymph nodes compared to previous scan, increasing lactic acid, increasing procal and no response to broad spectrum abx suspect malignant source. Will consult heme onc for further recommendations - repeat peripheral smear - overall prognosis is poor 2) SIRS - unknown etiology - likely related to malignancy - no repsonse to broad spectrum abx 3) Encephalopathy: - remains intubated for airway protection - worsening, pt not following commands and as responsive to external stimuli on same sedation amount as yesterday 4)Respiratory failure - 2/2 encephalopathy, cont ventilator support 5) ESRD on dialysis: - dialysis yesterday, cont per nephro recs - transfuse 1U PRBCs today with dialysis - DC fluids, cont albumin and hopefully fluid removal with dialysis 6) DMII - pt borderline hypoglycemic, monitor sugars - cont tube feeds Dispo: poor, pt has increasing lactic acid, increasing procal and rapidly expanding inguinal/retroperitoneal adenopathy. Suspect malignant source. Core biopsies were taken yesterday and those results are pending. Consult heme onc. Consult palliative as pt overall prognosis is poor. Addendum - Attending - Attending Attestation Date/Time: 08/13/18 0808 I personally evaluated the patient and discussed the management with Dr. Vincent. I agree with the History, Examination, Assessment and Plan documented above with any addition or exceptions noted below. Patient's disease progress appears to be progressing. Repeat CT scan yesterday shows aggressive enlargement of lymphadenopathy compared to previous study and he is now s/p core needle biopsy of the inguinal lymph node. He has continued to spike fevers overnight and now has worsening leukocytosis with neutrophilia despite broad spectrum antimicrobial agents. His PCT also trending upwards. ID on board, suspects progessive lymphoma or similar heme malignancy and I tend to agree as we have multiple sets of negative cultures. He also has increased lactate level despite fluids and pressors, suspect this could be hypermetabolic state which portends poor prognosis in setting of malignancy. Will consult Onc this morning, biopsy results pending and likely not available until Thursday. He also has new anion gap metabolic acidosis, likely related to the lactate elevation. His Hgb has dropped, consider hemolysis as part cause. Peripheral smear pending and will get 1 unit of blood with HD today. Pulm/Nephro on board, awaiting further recs. Will discuss with family today that he is progressing in his critical illness.
[2018-08-13] MEDS: fentaNYL Citrate/PF 2,000 MCG in Sodium Chloride 0.9% 60 ML IV SCH (08:29)
--- NOTE | 2018-08-13 08:50 | PRG ---
DATE OF SERVICE: 08/12/2018 SUBJECTIVE: This is a 47-year-old male with diabetes mellitus, chronic kidney disease, and peripheral vascular disease. He was hospitalized because of altered mental status and generalized weakness. He became hypotensive and also became unresponsive 2 days ago. He returned to the ICU, placed on the ventilator. He is also on levophed low dose . The patient had diarrhea until last night. The rectal tube was removed and he has normal Choe bag. As per the nurses, he is passing mostly not having more diarrhea. The patient is on vancomycin for possible Clostridium difficile colitis, although C. diff toxin negative. He also is on broad spectrum antibiotics because of possible sepsis. The patient has had abdominal CAT scan done today. The CAT scan shows extensive mesenteric and periaortic lymphadenopathy and also he also lymph nodes in the iliac area and groin. . PHYSICAL EXAMINATION: GENERAL: He is on ventilator and sedated. VITAL SIGNS: Stable on the Levophed. Pulse rate is on 96 and blood pressure around 106/70. CARDIOVASCULAR/LUNGS: Within normal limits. ABDOMEN: Soft and nondistended. Abdomen is nontender. Bowel sounds are hypoactive. LABORATORY DATA: The most recent laboratory data from today, WBC 17,100, hemoglobin is 8.6, hematocrit 26.3, and platelet count 119,000. His chemistry panel shows albumin is 2.1, bilirubin 4.4, AST 395, ALT 17, alkaline phosphatase 202. His serum ammonia level is actually normal at 23 and previous was 44. RECOMMENDATIONS: 1. Continue ventilator support and respiratory support. 2. Continue input for possible lymph node biopsy. 3. Continue present treatment. Job ID: [id number]
[2018-08-13] MEDS: Fluticasone Propionate Nasal Spray 16 gm Bottle NASAL SCH (09:00)
--- NOTE | 2018-08-13 09:30 | OP ---
DATE OF PROCEDURE: 08/13/2018 PREOPERATIVE DIAGNOSIS: Lymphadenopathy of unknown cause. POSTOPERATIVE DIAGNOSIS: Lymphadenopathy of unknown cause. PROCEDURE PERFORMED: Full core needle biopsy. Length 10 cm, 18-gauge. PERFORMING PHYSICIANS: 1. Mario Alberto Vincent DO. 2. Paradise Pa MD. 3. Bora Matute DO. DESCRIPTION OF PROCEDURE: The area surrounding the lymph node was prepared and draped in the usual sterile manner using ChloraPrep and sterile towels. Local anesthesia was obtained with 2 mL lidocaine with epinephrine. Ultrasound guidance was used to visualize the palpable lymph node subcutaneously. #11-blade scalpel used to create skin perforation for introduction of the core biopsy needle. Core biopsy needle obtained. Ultrasound visualization obtained of needle contacting surface of lymph node. Correct depth of the lesion to be biopsied was confirmed , set to core biopsy needle at 3 cm. Two biopsies were retrieved and placed in 2 biopsy containers with sterile water, labeled as patient name and transferred to the laboratory for pathology and cytology. Core biopsy needle retracted. Hemostasis obtained. The patient tolerated the procedure well. No closure was needed. FOLLOWUP: The patient tolerated the procedure well without complication. Standard postprocedure care was explained and precautions were given to nursing staff. Attending Note: I was present for the entire procedure as documented above. Uncomplicated cord biopsy performed. Samples sent to path for review. Aydin Job ID: [id number] MTDD
[2018-08-13] MEDS: Pantoprazole 40 MG VIAL IVP SCH ×2 (09:48→21:57)
[2018-08-13] MEDS: Linezolid 600 MG in Premix Bag 1 BAG IVPB SCH ×2 (09:48→21:56)
[2018-08-13] MEDS: Sodium Chloride 0.9% (PF) 10 ML VIAL FS PRN (09:48)
[2018-08-13 09:50] LABS: Lactic Acid 6.2 mmol/L (0.5-2.2)
[2018-08-13] MEDS: Folic Acid 1 MG TAB PO SCH ×2 (09:50→09:53)
[2018-08-13] MEDS: Gabapentin 300 MG CAP PO SCH (09:51)
--- NOTE | 2018-08-13 11:10 | SPC ---
FPICC placement Ultrasound-guided venous access: (Peripherally inserted central catheter) DATE: 08/13/2018 HISTORY: 47-year-old male with sepsis requiring long-term IV antibiotics. TECHNIQUE: Catheter caliber: 5 Azerbaijani Catheter trim length: 33 cm Catheter lumen number: Single Catheter tip location: Right atrium Vein accessed: Right brachial Total fluoroscopy time: Dose area product: Procedure performed at bedside in the CCU. Signed, proxy informed consent was obtained. A tourniquet was applied at the proximal aspect of the a rm. The arm was prepped and draped in the usual sterile fashion. A 25-gauge needle was used to applie d buffered lidocaine superficially. The vein was punctured with a 21-gauge micropuncture needle under ultrasound guidance. A 0.018 inch guidewire was advanced through the micropuncture needle and into t he vein. Under fluoroscopic guidance, the guidewire was advanced to the superior vena cava. The PICC was flushed and trimmed to the appropriate length. The micropuncture needle was exchanged over the gu idewire for a 5 Azerbaijani peel-away dilator sheath. The dilator was exchanged over the guidewire for the PICC, which was then further advanced under fluoroscopy. The sheath and guidewire were removed. The PICC was flushed again and secured in place at the arm after adjustment of tip position. The patient tolerated the procedure well. There was no complication. IMPRESSION: Successful placement of PICC (peripherally inserted central catheter).
--- NOTE | 2018-08-13 11:17 | PRG ---
DATE OF SERVICE: 08/13/2018 SUBJECTIVE: Josias Martinez today was clinically has not improved at all. CT scanning showed significant increase in his abdominal lymphadenopathy, which would argue for an aggressive lymphoma as a diagnosis. He had a percutaneous core biopsy done. Hopefully, we can quickly get pathology out, so we can make the decisions about end of life care. I doubt he will be a candidate for any type of operative procedure for chemotherapy. He is having a PICC line placed today. Our options are very limited as I have explained to family today. I have talked to two sisters separately. I have answered all their questions. I do not think he would survive this illness. Job ID: [id number]
--- NOTE | 2018-08-13 13:08 | PRG ---
DATE OF SERVICE: 08/13/2018 SUBJECTIVE: A 47-year-old gentleman being seen for end-stage renal disease. The patient remains intubated. OBJECTIVE: GENERAL: The patient is resting well. VITAL SIGNS: Show temperature , pulse 74, breathing 16, and blood pressure 104/44. GENERAL APPEARANCE AND MENTAL STATUS: Fair. HEAD/NECK: Normocephalic. Atraumatic. EYES: EOMI. No deformity. EARS: Clear. No ulcers. NOSE: Intact. No lesions. MOUTH: Clear. No discharge. THROAT: Clear. No exudate. LUNGS: Clear. No crackles. CARDIAC: S1, S2. No rub. ABDOMEN: Benign. Bowel sounds positive. GENITALIA/RECTUM: Choe absent. BACK/EXTREMITIES: Edema 0+. NEUROLOGICAL: Alert and motor intact. SKIN: LYMPHATICS: LABORATORY DATA: Labs show hemoglobin 7.4. Potassium 5.1. ASSESSMENT AND PLAN: 1. Stage 6 chronic kidney disease. Plan hemodialysis. 2. Hypertension. 3. Sepsis, workup in progress. 4. Anemia, would recommend 2 units of blood transfusion with dialysis. 5. Medication based on GFR appropriate. Overall prognosis is poor. No family member was available. I will call the sister today. Job ID: [id number]
--- NOTE | 2018-08-13 14:35 | CON ---
DATE OF CONSULTATION: REASON FOR CONSULTATION: Lymphadenopathy. HISTORY OF PRESENT ILLNESS: Mr. Martinez is a 47-year-old gentleman with a history of end-stage renal disease, who presented to the emergency room with altered mental status. He was diagnosed with sepsis. He has been intubated and has required pressors. He has had intermittent fever since admission. He was last seen in May at [facility] by Dr. Brower. A CT scan at that time showed some retroperitoneal lymphadenopathy. There was no biopsy. He had a repeat CT scan of his abdomen and pelvis on this admission. It showed prominent retroperitoneal adenopathy, massive right inguinal adenopathy measuring 10 cm. The patient had a right inguinal biopsy performed. The pathology is still pending. PAST MEDICAL HISTORY: 1. Diabetes mellitus 2. 2. Hypertension. 3. End-stage renal disease. 4. Obesity. 5. Recent abnormal lymphadenopathy on CT scan from [facility]. PAST SURGICAL HISTORY: 1. AV fistula. 2. Bilateral BKAs. ALLERGIES: NO KNOWN DRUG ALLERGIES. CURRENT MEDICATIONS: 1. Procrit 10,000 units with dialysis. 2. Fentanyl drip. 3. Neurontin daily. 4. Sliding scale p.r.n. 5. Linezolid 600 mg q.12 hours. 6. Micafungin daily. 7. Morphine p.r.n. 8. Levophed drip. 9. Protonix daily. 10. Zosyn q.8 hours. 11. Vancomycin. FAMILY HISTORY: Breast and ovarian cancer. SOCIAL HISTORY: Single. Lives with niece. REVIEW OF SYSTEMS: Unable to obtain secondary to intubation. PHYSICAL EXAMINATION: VITAL SIGNS: Temperature is 99.8, pulse is 100, respiratory rate 20, blood pressure is 86/46. He is 100% on room air. GENERAL: This is an intubated gentleman, in no acute distress. HEENT: He is normocephalic and atraumatic. NECK: Supple. CV: Regular rate and rhythm. ABDOMEN: Obese. He has a dressing to his right groin. EXTREMITIES: Bilateral BKA. SKIN: No rash. NEUROLOGIC: Sedated on the vent. PERTINENT LABS AND X-RAYS: Current WBCs are 21.9, hemoglobin 7.4, hematocrit 23.3, platelet count 123,000, 61% neutrophils, 21% bands, 12% lymphocytes. Sodium 135 , potassium 5.1, chloride 98, CO2 is 64, BUN is 10, lactic acid 6.2, calcium 6.5, bilirubin is 4.3, AST is 336, ALT is 57, alkaline phosphatase is 157, total protein is 4.9, albumin 2.4, globulin 2.5. ASSESSMENT: 1. Significantly progressive retroperitoneal and inguinal lymphadenopathy. 2. Lactic acidosis. 3. Respiratory failure. 4. End-stage renal disease, on dialysis. 5. Vancomycin-resistant Enterococcus bacteremia. DISCUSSION: The patient's lymph node biopsy is completed and is currently pending. The patient likely has a lymphoma. We will await final path for recommendations ; however, the patient is critically ill requiring pressors for blood pressure support. He has hyperbilirubinemia and bacteremia. He is currently a poor candidate for any chemotherapy. We will follow along with his hospital course. If he recovers, will see him as outpatient for treatment recommendations. Discussed with Dr. Escamilla. Thank you for the consult. Job ID: [id number] MTDD
[2018-08-13] MEDS: Epoetin (ESRD) 10,000 UNITS/ML VIAL IVP SCH (15:59)
[2018-08-13 16:19] LABS: Phosphorus 8.6 mg/dL (2.3-4.7); Uric Acid 8.8 mg/dL (3.5-7.2)
--- NOTE | 2018-08-13 17:29 | PRG ---
DATE OF SERVICE: 08/13/2018 SUBJECTIVE: Mr. Martinez is intubated, sedated. He had a core biopsy yesterday. OBJECTIVE: VITAL SIGNS: T-max 100.3, BP 85/48, pulse 105, respirations 20. HEENT: Orotracheal intubation. LUNGS: Symmetric. Coarse breath sounds. HEART: S1 and S2. ABDOMEN: Distended. Right groin central line noted. LABORATORY DATA: White cell count is 21.9, hemoglobin 7.4, platelets 123, 21% bands. Chemistry; lactic acid 6.2, LDH 1253. Microbiology; acid-fast smear from the core lymph node biopsy was negative, but bacterial culture from the core biopsy is negative thus far. Pathology is pending. ASSESSMENT AND DISCUSSION: End-stage renal disease secondary to type 2 diabetes, hypotension, hypoxemia, and pathologic lymphadenopathy. We will await for the core biopsy. Continue antimicrobial therapy for this event for the time being. Job ID: [id number]
[2018-08-13] MEDS: Hydrocortisone Sod Succ/PF 100 mg/2 ml Vial IVP SCH (18:55)
--- NOTE | 2018-08-13 22:21 | PRG ---
DATE OF SERVICE: 08/13/2018 REASON FOR CONSULTATION: Elevated LFTs, diarrhea. SUBJECTIVE: The patient continues to be intubated and sedated while in the ICU on Levophed administration/pressor support in order to maintain normotensive pressures. The patient does have a rectal tube management system in place with mostly liquid bowel movements collecting within the bag, although he is currently tolerating vancomycin for possible Clostridium difficile colitis. However, he is also currently on broad-spectrum antibiotics for significant sepsis and has had imaging lately consistent with significant lymphadenopathy and possible lymphoma per Oncology/Hematology evaluation. PHYSICAL EXAMINATION: VITAL SIGNS: Temperature 100, heart rate 111, blood pressure 132/71, respiratory rate 18, saturating 94% on mechanical ventilation. GENERAL: The patient was lying in bed, in no acute distress, intubated and sedated. CARDIOVASCULAR: Regular rate and rhythm. RESPIRATORY: Coarse breath sounds heard in all lung levi consistent with mechanical ventilation. ABDOMEN: Hypoactive bowel sounds. Soft. No grimacing to palpation. LABORATORY DATA: CBC with a white blood cell count of 21.9, hemoglobin 7.4, hematocrit 23.3, platelets 123, and 21% bands included in the CBC. Chemistry with a sodium of 135, potassium 5.1, chloride 98, CO2 of 16, BUN 64, creatinine 10.24, glucose 98, AST 336, ALT 57, alkaline phosphatase 157, total bilirubin 4.6. IMAGING DATA: No current GI imaging is available for review. ASSESSMENT AND PLAN: The patient is a 47-year-old male with diabetes; chronic kidney disease, on hemodialysis; hypertension; hyperlipidemia; gastroesophageal reflux disease; peripheral vascular disease; vitamin D deficiency, and sacral decubitus ulcerations, presenting with severe sepsis, transaminitis and Clostridium difficile colitis. Transaminitis: The patient was initially admitted to [facility] in the beginning of July 2018, with a diagnosis of sepsis and septic shock that ultimately required admission to the ICU and placement on pressor support. He was placed on appropriate antibiotic therapy and ultimately improved with management and discharged to home. However, upon going home, he discontinued the use of his antibiotics and with worsening clinical status, prompted him to come to [facility] for further evaluation. On evaluation in the ER, he was noted to have significantly elevated AST, ALT, alkaline phosphatase and total bilirubin, but when compared to his prior admission at [facility], was still down trending from "shock liver." During the course of this admission, his enzymes had decreased to almost normal levels, but upon re-initiation of intubation, sedation and pressor support, his enzymes have come up somewhat, indicating probable ischemic type changes with hypoperfusion of the liver, and/or drug-induced liver injury. Recommendations: 1. Would continue to trend LFTs daily for continued monitoring of his liver enzymes. 2. Would avoid any potential hepatotoxins during this admission. 3. Would attempt to avoid any further episodes of hypotension. Diarrhea: The patient initially presented with increased diarrhea that he began to experience while he was admitted to the [facility]. While during his admission at [facility], he was placed on multiple broad-spectrum antibiotics for the sepsis and while in the ICU for septic shock. Given this significant antibiotic exposure, there was a high concern for Clostridium difficile infection with infectious stool studies obtained here showing presence of the C diff antigen, but not necessarily the toxin. Per guidelines, if there is a high enough clinical index suspicion for C diff colitis despite the fact that the toxin was negative, the decision was made to treat this particular infection. Recommendations: 1. I would continue to treat the patient with oral vancomycin as you are doing. 2. Would continue to monitor volume status given his significant diarrhea. We will continue to follow. Please call with any questions. Job ID: [id number]
[2018-08-14] MEDS: Hydrocortisone Sod Succ/PF 100 mg/2 ml Vial IVP SCH ×4 (01:01→17:18)
[2018-08-14] MEDS: Piperacillin/Tazobactam 2.25 GM in Sodium Chloride 0.9% 100 ML IVPB SCH ×3 (01:02→16:53)
[2018-08-14] MEDS: Dextrose 5 % And 0.9 % NaCl 1,000 ML IV SCH (01:02)
[2018-08-14] MEDS: Vancomycin HCl 25 MG/ML Oral PO SCH ×4 (01:02→17:15)
[2018-08-14] MEDS: Propofol 1,000 MG/100 ML VIAL IV PRN (02:32)
[2018-08-14] MEDS: Norepinephrine 8 MG/0.9% NS 250 ML IVPB SCH ×2 (03:18→15:23)
[2018-08-14] MEDS: fentaNYL Citrate/PF 2,000 MCG in Sodium Chloride 0.9% 60 ML IV SCH (04:37)
[2018-08-14 05:48] LABS: Lactic Acid 8.5 mmol/L (0.5-2.2)
[2018-08-14 05:58] LABS: ALT (SGPT) 50 U/L (8-55); AST (SGOT) 347 U/L (5-34); Albumin 2.8 g/dL (3.5-5.0); Alkaline Phosphatase 130 U/L (40-150); Anion Gap 32 mmol/L (10-20); BUN (Urea Nitrogen) 44 mg/dL (8.9-20.6); Bilirubin, Total 5.4 mg/dL (0.2-1.2); Calc. Creatinine Clearance 25 mL/min (70-130); Calcium 6.9 mg/dL (7.8-10.44); Carbon Dioxide 12 mmol/L (22-29); Chloride 96 mmol/L (98-107); Estimated GFR-MDRD 9; Globulin 2.7 g/dL (2.4-3.5); Glucose 128 mg/dL (70-105); Potassium 5.3 mmol/L (3.5-5.1); Protein, Total 5.5 g/dL (6.0-8.3); Sodium 135 mmol/L (136-145)
[2018-08-14 06:08] LABS: Anisocytosis MODERATE=16-30 cells (100X) (0-5/hpf); Band 20 % (5-11); Lymphocytes 6 % (21-51); MDiff Complete? YES; Mean Corpuscular HGB CONC 33.7 g/dL (32.0-36.0); Mean Corpuscular Volume 89.2 fL (78.0-98.0); Mean Platelet Volume 11.9 fL (7.4-10.4); Monocytes 4 % (0-10); Myelocyte 1 % (0-0); Neutrophil 69 % (42-75); Nucleated RBC 2 % (0); Platelet Count 81 thou/uL (130-400); Platelet Morphology Comment Appears Decreased; RBC Distribution Width 21.7 % (11.5-14.5); Red Blood Cell (RBC) Count 2.98 mill/uL (4.70-6.10); White Blood Cell (WBC) Count 13.5 thou/uL (4.8-10.8)
--- NOTE | 2018-08-14 07:51 | PDOC.FM ---
- Subjective Subjective: No changes overnight. Pts lactic acidosis continues to worsen . AV fistula clotted off during dialysis, as such trialysis cath placed and 6L taken off. Spoke with all family members yesterday regarding his poor prognosis and likely dx. Will attempt to wean sedation to assess overall mental status and level of responsiveness. Pt BPs better with vasopressin addition. Levophed titrated down. - Objective MAR Reviewed: Yes Vital Signs & Weight: Vital Signs (12 hours) Temp Pulse Resp BP Pulse Ox 08/14/18 07:34 98 08/14/18 07:12 99.4 F 08/14/18 06:00 28 H 08/14/18 04:14 102 H 08/14/18 04:00 99.3 F 27 H 08/14/18 02:00 27 H 08/14/18 00:00 100.3 F H 29 H 08/13/18 23:29 113 H 150/75 H 08/13/18 22:00 26 H 08/13/18 20:08 100.0 F H 18 94 L 08/13/18 20:00 100.0 F H 23 H Weight Admit Weight 150.366 kg Weight 158.3 kg Most Recent Monitor Data Heart Rate from ECG 99 NIBP 120/64 NIBP BP-Mean 82 Respiration from ECG 27 SpO2 97 I&O: 08/13/18 08/14/18 08/15/18 06:59 06:59 06:59 Intake Total 3822 4246.2 Output Total 200 0 0 Balance 3622 4246.2 0 Result Diagrams: 08/14/18 04:50 08/14/18 04:50 Phys Exam - Physical Examination sedated HEENT: moist MMs intubated Neck: no JVD Respiratory: no wheezing, no rales, no rhonchi diminished bases Cardiovascular: RRR, no significant murmur, no rub Gastrointestinal: soft, non-tender, no distention, positive bowel sounds Musculoskeletal: pulses present, edema present b/l BKA sedated, does not withdraw from painful stimuli Dx/Plan (1) Inguinal adenopathy Code(s): R59.0 - LOCALIZED ENLARGED LYMPH NODES Status: Acute (2) Acute on chronic respiratory failure with hypoxia Code(s): J96.21 - ACUTE AND CHRONIC RESPIRATORY FAILURE WITH HYPOXIA Status: Acute (3) Sepsis Code(s): A41.9 - SEPSIS, UNSPECIFIED ORGANISM Status: Ruled-out (4) Encephalopathy acute Code(s): G93.40 - ENCEPHALOPATHY, UNSPECIFIED Status: Acute (5) Transaminitis Code(s): R74.0 - NONSPEC ELEV OF LEVELS OF TRANSAMNS & LACTIC ACID DEHYDRGNSE Status: Acute (6) Diabetes mellitus with insulin therapy Code(s): E11.9 - TYPE 2 DIABETES MELLITUS WITHOUT COMPLICATIONS; Z79.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 Will consult heme onc for further recommendations. Likely lymphoma. - peripheral smear showed reactive changes, otherwise normal - overall prognosis is poor 2) SIRS - unknown etiology - likely related to malignancy - no repsonse to broad spectrum abx - will continue abx per ID 3) Encephalopathy: - remains intubated for airway protection - wean sedation today and assess mentation 4)Respiratory failure - 2/2 encephalopathy, cont ventilator support 5) ESRD on dialysis: - dialyzed yesterday - 2U PRBCs given - 6L removed 6) DMII - pt borderline hypoglycemic, monitor sugars - cont tube feeds Dispo: Critical. Pt lactic acidosis continues to worsen. He remains volume overloaded. Likely aggressive lymphoma, will await biopsy and continue supportive care along with broad spectrum abx. Addendum - Attending - Attending Attestation Date/Time: 08/14/18 9650 I personally evaluated the patient and discussed the management with Dr. Vincent I agree with the History, Examination, Assessment and Plan documented above with any addition or exceptions noted below. Patient with 6L removed with HD yesterday he appears critically ill however stable. Patient received stress dose steroids yesterday. Family aware of patients grave condition awaiting core biopsy pathology report. 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
[2018-08-14] MEDS: Linezolid 600 MG in Premix Bag 1 BAG IVPB SCH ×2 (09:01→20:32)
[2018-08-14] MEDS: Folic Acid 1 MG TAB PO SCH (09:02)
[2018-08-14] MEDS: Gabapentin 300 MG CAP PO SCH (09:02)
[2018-08-14] MEDS: Pantoprazole 40 MG VIAL IVP SCH ×2 (09:21→20:20)
[2018-08-14 10:01] LABS: Actual Bicarbonate (HCO3a) 9.8 mEq/L (22-28); Base Excess (BEa) -16.4 mEq/L (-2.0 to +3.0); Calcium, Ionized 0.89 mmol/L (1.12-1.30); Carboxyhemoglobin (COHb) 0.9 gm% (0.0-3.0); Hemoglobin (Hb) 9.1 g/dL (14.0-18.0); O2 Tension (PaO2) 70.2 mmHg (80.0-100.0); Potassium - ABG Lab 5.32 mmol/L (3.70-5.30)
[2018-08-14 10:03] LABS: CO2 Tension 24.7 mmHg (35.0-45.0); Puncture Site RRA; pH, Arterial 7.22 (7.35-7.45)
[2018-08-14 10:04] LABS: ALV-art Gradient 148.475 (0-20)
--- NOTE | 2018-08-14 10:07 | PRG ---
DATE OF SERVICE: 08/14/2018 SERVICE: Pulmonary Medicine. INTERVAL HISTORY: Patient had a rough go yesterday. He became more hypotensive. We put him on stress dose of steroids, and initiated vasopressin. He tolerated a little bit of dialysis yesterday, but towards the end of it, his AV fistula clotted off. As such, a Trialysis catheter was placed yesterday. He is on broad- spectrum antibiotics. His blood pressure firmed up overnight, and he did not have any additional events. He cannot provide additional elements of the history because of his deep encephalopathy. He is on a sedation holiday for the past hour. He still remains quite stuporous. PHYSICAL EXAMINATION: VITAL SIGNS: Afebrile, pulse 100, blood pressure 147/44, respirations 32, saturation 97% on 40% FiO2 and a PEEP of 5. GENERAL: The patient is intubated and sedated. HEENT: Normocephalic, atraumatic. Sclerae white. Conjunctivae pink. Oral mucosa is moist without lesions. LUNGS: Decent air entry. There is no prolonged expiratory phase. Rhonchi and crackles are both noted. HEART: Normal rate. Regular. ABDOMEN: Soft, nontender, nondistended. Bowel sounds are positive. MUSCULOSKELETAL: No cyanosis or clubbing. There is diffuse 1 to 2+ pitting throughout. : No Choe catheter. NEUROLOGIC: Grossly nonfocal. He grimaces with noxious stimuli to the bilateral upper and lower extremities. LABORATORY DATA: WBC 13.5, hemoglobin 9.0, platelets 81,000 and downtrending. INR 1.2. Potassium 5.3, creatinine 7.74. Lactate is up trending to 8.5. Liver function studies are otherwise unremarkable. CK 900. Anion gap is 32. Bicarb is down to 12. ABDIRIZAK, ANCA, anti-GBM antibodies are all unremarkable. Hepatitis serologies and HIV are also unremarkable. Blood cultures x2, acid-fast bacilli culture, and most recent tissue culture have been unremarkable to date. ASSESSMENT: 1. Septic shock. 2. Urinary tract infection secondary to vancomycin-resistant Enterococcus. 3. Clostridium difficile colitis. 4. Lymphoma, diffuse large B-cell, suspected. 5. Acute hypoxic respiratory failure. 6. End-stage renal disease. 7. Tumor lysis syndrome, suspected. DISCUSSION AND PLAN: I will repeat an ABG this morning. Supportive care will be continued. We will wean pressors through time. We will initiate tube feeds to see whether or not he can tolerate them. He is on much less pressors at this point. His blood pressure has firmed up nicely. As such, I am hoping that he can. We will talk to Nephrology about repeating dialysis today. Other supportive measures will be continued. Antibiotics per ID. Pulmonary Critical Care will continue to follow along. Critical care time: 30 minutes. Job ID: [id number] HERLINDA
[2018-08-14] MEDS: HumaLOG 300 UNITS/3 ML VIAL SC PRN (10:50)
--- NOTE | 2018-08-14 11:54 | PRG ---
DATE OF SERVICE: 08/14/2018 SUBJECTIVE: A 47-year-old male being seen for end-stage kidney disease. The patient remains intubated. OBJECTIVE: CONSTITUTIONAL: On examination, the patient is resting well. VITAL SIGNS: Afebrile. Pulse 101, breathing 16, blood pressure 133/70. GENERAL APPEARANCE AND MENTAL STATUS: Fair. HEAD/NECK: Normocephalic. Atraumatic. EYES: EOMI. No deformity. EARS: Clear. No ulcers. NOSE: Intact. No lesions. MOUTH: Clear. No discharge. THROAT: Clear. No exudate. LUNGS: Clear. No crackles. CARDIAC: S1, S2. No rub. ABDOMEN: Benign. Bowel sounds positive. GENITALIA/RECTUM: Choe absent. BACK/EXTREMITIES: Edema4+. NEUROLOGICAL: The patient is resting. LABORATORY DATA: Labs show potassium 5.6. ASSESSMENT AND PLAN: 1. Stage 6 chronic kidney disease, plan dialysis. 2. Hypertension, plan dialysis. 3. Hyperkalemia, plan dialysis. 4. tumor Lysis syndrome Job ID: [id number] [facility]
--- NOTE | 2018-08-14 14:43 | PRG ---
DATE OF SERVICE: 08/14/2018 REASON FOR CONSULTATION: Elevated LFTs, Clostridium difficile colitis. SUBJECTIVE: Yesterday, the patient was requiring increasing pressor support with the addition of vasopressin in addition along with Levophed in order to maintain pressures. He also attempted to undergo dialysis yesterday, but had low flow during the procedure and his arteriovenous fistula clotted off and as such, required the placement of a Trialysis catheter in order to complete dialysis, which was completed yesterday. However, today he is doing better with more normotensive pressures and per nursing staff, he has had approximately 1 to 2 semi-solid bowel movements within the last 24 hours. He is still intubated, sedated and was unresponsive at the time of this evaluation. OBJECTIVE: VITAL SIGNS: Temperature 99.1, pulse 96, blood pressure 123/71, respiratory rate 29, saturating 100% on mechanical ventilation. GENERAL: The patient is lying in bed, in no acute distress. Intubated and sedated. CARDIOVASCULAR: Regular rate and rhythm. RESPIRATORY: Coarse breath sounds heard in all lung levi consistent with mechanical ventilation. ABDOMEN: Hypoactive bowel sounds. Soft. No grimacing to palpation. EXTREMITIES: Bilateral below-knee amputations were seen; however, the patient exhibited 1+/2+ bilateral edema in the upper and lower extremities. LABORATORY DATA: CBC with a white blood cell count of 13.5, hemoglobin 9, hematocrit 26.6, platelets 81. Chemistry with a sodium of 135, potassium 5.3, chloride 96, CO2 12, BUN 44, creatinine 7.74, glucose 128, AST 347, ALT 50, alkaline phosphatase 130, total bilirubin 5.4. IMAGING DATA: No current GI imaging is available for review. ASSESSMENT AND PLAN: The patient is a 47-year-old male with diabetes, end-stage renal disease on hemodialysis, hypertension, hyperlipidemia, gastroesophageal reflux disease, peripheral vascular disease, vitamin D deficiency, and sacral decubitus ulcerations, presenting with severe sepsis, transaminitis and Clostridium difficile colitis. Transaminitis: The patient was initially admitted to [facility] in the beginning of July 2018, with a diagnosis of sepsis and elevated LFTs at that time, which were attributed to septic shock. During the initial portion of his hospitalization at [facility] with more conservative management, his LFTs had reached a more normal level consistent with that diagnosis. However, as his clinical condition worsened during this admission and after his transfer to the ICU, he again had an increase in his transaminases, which at this time are most likely due to either continued sepsis versus hypervolemia and congestive hepatopathy. At this time, his liver enzymes are relatively stable or have normalized and again, most likely due to the above etiologies as opposed to underlying liver disease. Recommendations: 1. Would continue to trend LFTs daily for continue monitoring of the liver enzymes. 2. Avoid any potential hepatotoxins during this admission. 3. Attempt to avoid any further episodes of hypotension. Diarrhea: The patient initially presented with increased diarrhea that had been present during his admission at the [facility] and continued into this admission. Upon evaluation here, he was noted to have stool studies that were positive for C. diff antigen, but not necessarily the toxin. Given his recent antibiotic use and presence of the bacteria within his stool as well as his current clinical condition at that time, the index of suspicion with high enough for C. diff colitis with the decision to treat this particular infection. Since being placed on oral vancomycin, his diarrhea has significantly improved, having approximately 1 to 2 bowel movements over the last 24 hours that are semi-solid in consistency. At this time, it appears that he is responding well to treatment with the more liquid components of his stool may be possibly due to broad-spectrum antibiotic use in addition to his debilitated status. Recommendations: 1. Would continue to treat with oral vancomycin as you are doing. 2. Continue to monitor volume status given his recent diarrhea (although this is improving as well). At this point, we have no additional recommendations and will follow peripherally for now. Please call with any questions. Job ID: [id number]
[2018-08-14] MEDS: Fluticasone Propionate Nasal Spray 16 gm Bottle NASAL SCH (16:50)
[2018-08-14] MEDS: Micafungin 100 MG in Sodium Chloride 0.9% 100 ML IVPB SCH (17:17)
[2018-08-14] MEDS ORDERED: Heparin 10,000 UNITS/ 10 ML VIAL ONE (18:00)
--- NOTE | 2018-08-14 20:37 | EKG ---
Test Reason : SEPSIS Blood Pressure : / mmHG Vent. Rate : 090 BPM Atrial Rate : 090 BPM P-R Int : 142 ms QRS Dur : 094 ms QT Int : 394 ms P-R-T Axes : 052 -60 013 degrees QTc Int : 481 ms Normal sinus rhythm Low voltage QRS Left anterior fascicular block Cannot rule out Inferior infarct (masked by fascicular block?) , age undetermined Possible Anterolateral infarct , age undetermined Abnormal ECG Confirmed by NINFA MALONEY, SHAVON ([id number]), editor greeting card DALILA LEACH ([id number]) on 08/14/2018 8:36:56 PM Referred By: Confirmed By:SHAVON OCASIO MD
[2018-08-15] MEDS: Hydrocortisone Sod Succ/PF 100 mg/2 ml Vial IVP SCH ×5 (00:19→23:15)
[2018-08-15] MEDS: Vancomycin HCl 25 MG/ML Oral PO SCH ×6 (00:19→23:15)
[2018-08-15] MEDS: Piperacillin/Tazobactam 2.25 GM in Sodium Chloride 0.9% 100 ML IVPB SCH ×4 (00:19→23:15)
[2018-08-15] MEDS: HumaLOG 300 UNITS/3 ML VIAL SC PRN ×4 (00:28→22:32)
[2018-08-15] MEDS: fentaNYL Citrate/PF 2,000 MCG in Sodium Chloride 0.9% 60 ML IV SCH (02:04)
[2018-08-15] MEDS: Dextrose 5 % And 0.9 % NaCl 1,000 ML IV SCH (03:19)
[2018-08-15 04:52] LABS: ALT (SGPT) 49 U/L (8-55); AST (SGOT) 251 U/L (5-34); Albumin 2.5 g/dL (3.5-5.0); Alkaline Phosphatase 113 U/L (40-150); Anion Gap 28 mmol/L (10-20); BUN (Urea Nitrogen) 36 mg/dL (8.9-20.6); Bilirubin, Total 5.3 mg/dL (0.2-1.2); Calc. Creatinine Clearance 31 mL/min (70-130); Calcium 6.8 mg/dL (7.8-10.44); Carbon Dioxide 14 mmol/L (22-29); Chloride 97 mmol/L (98-107); Estimated GFR-MDRD 11; Globulin 2.4 g/dL (2.4-3.5); Glucose 208 mg/dL (70-105); Potassium 4.3 mmol/L (3.5-5.1); Protein, Total 4.9 g/dL (6.0-8.3); Sodium 135 mmol/L (136-145)
[2018-08-15 05:10] LABS: Anisocytosis SLIGHT = 6-15 cells (100X) (0-5/hpf); Band 10 % (5-11); Hemoglobin 8.2 g/dL (14.0-18.0); Lymphocytes 6 % (21-51); MDiff Complete? YES; Mean Corpuscular HGB CONC 33.5 g/dL (32.0-36.0); Mean Corpuscular Hemoglobin 29.1 pg (27.0-31.0); Mean Corpuscular Volume 86.8 fL (78.0-98.0); Mean Platelet Volume 5.7 fL (7.4-10.4); Monocytes 4 % (0-10); Neutrophil 80 % (42-75); Nucleated RBC 2 % (0); Platelet Count 56 thou/uL (130-400); Platelet Morphology Comment Appears Decreased; Polychromasia SLIGHT = 2-3 cells (100X) (0-2/hpf); RBC Distribution Width 21.9 % (11.5-14.5); Red Blood Cell (RBC) Count 2.83 mill/uL (4.70-6.10); White Blood Cell (WBC) Count 8.3 thou/uL (4.8-10.8)
[2018-08-15] MEDS ORDERED: Dextrose 5 % And 0.9 % NaCl 1,000 ML IV SCH (08:02)
--- NOTE | 2018-08-15 08:15 | PRG ---
DATE OF SERVICE: 08/15/2018 SERVICE: Pulmonary Medicine. INTERVAL HISTORY: The patient is doing really well from respiratory standpoint. Breathing comfortably. He looks less toxic today. He tolerated dialysis and several liters of fluid were removed yesterday. He is going to have dialysis once again today. Otherwise, there has been no interval change to his condition. No overnight events were reported. PHYSICAL EXAMINATION: VITAL SIGNS: Afebrile with a T-max of 100.3, pulse 87, blood pressure 118/66, respirations 21, saturation 100% on 31% FiO2 and a PEEP of 5. HEENT: Normocephalic and atraumatic. Sclerae are white. Conjunctivae are pink. Oral mucosa is moist without lesions. LUNGS: Decent air entry. Crackles are present. No prolonged expiratory phase. HEART: Normal rate regular. ABDOMEN: Soft, nontender, and nondistended. Bowel sounds are positive. MUSCULOSKELETAL: No cyanosis or clubbing. There is 2+ pitting in the bilateral stumps. : No Choe. NEUROLOGIC: Grossly nonfocal. LABORATORY DATA: WBC 8.3; hemoglobin 8.2; and platelets 56,000, continuing to trend downward. Creatinine 6.43, BUN 36, anion gap 28, bicarb 14, chloride 97, potassium 4.3 and improving, and sodium 135 and stable. Total bilirubin is stable at 5.3 , AST and ALT are gently downtrending. Alkaline phosphatase is now in normal limits. All most recent culture results are negative to date. ASSESSMENT: 1. Septic shock, improving. 2. Urinary tract infection secondary to vancomycin-resistant Enterococcus. 3. Clostridium difficile colitis. 4. Lymphoma, diffuse large B-cell, suspected with path pending. 5. Acute hypoxic respiratory failure. 6. End-stage renal disease with massive volume overload. 7. Tumor lysis syndrome, suspected. DISCUSSION AND PLAN: We will continue our daily dialysis. We will wean pressors through time. We will give him a sedation holiday. If he is appropriate, I will put him on a spontaneous breathing trial. We will continue to follow. The patient remains critically ill. Even if he survives this event, he will be looking at chemotherapy, which he may not have enough functional status to tolerate even at baseline. CRITICAL CARE TIME: 30 minutes. Job ID: [id number] [facility]
[2018-08-15] MEDS: Folic Acid 1 MG TAB PO SCH (09:05)
[2018-08-15] MEDS: Pantoprazole 40 MG VIAL IVP SCH ×2 (09:05→20:08)
[2018-08-15] MEDS: Linezolid 600 MG in Premix Bag 1 BAG IVPB SCH ×2 (09:05→20:07)
[2018-08-15] MEDS ORDERED: Heparin 10,000 UNITS/ 10 ML VIAL ONE (10:00)
--- NOTE | 2018-08-15 10:24 | PDOC.FM ---
- Subjective Subjective: Pt has required decreasing levophed and continues to have fluid removed with dialysis along with daily dialysis to correct the acid disturbance. Otherwise he is off sedation and continues to be minimally responsive, only opening eyes to verbal stimuli. This could be prolonged sedation 2/2 pts body habitus and drug clearence along with ESRD. Cont sedation holiday. - Objective Vital Signs & Weight: Vital Signs (12 hours) Temp Pulse Resp BP Pulse Ox 08/15/18 10:15 85 08/15/18 07:58 99 08/15/18 07:56 19 08/15/18 07:24 86 08/15/18 07:00 97.9 F 08/15/18 06:00 20 08/15/18 04:00 98.3 F 20 08/15/18 03:42 86 92/62 08/15/18 02:00 25 H 08/15/18 00:07 88 08/15/18 00:00 98.2 F 24 H Weight Admit Weight 150.366 kg Weight 153.4 kg Most Recent Monitor Data Heart Rate from ECG 89 NIBP 93/59 NIBP BP-Mean 70 Respiration from ECG 25 SpO2 95 I&O: 08/14/18 08/15/18 08/16/18 06:59 06:59 06:59 Intake Total 4246.2 2723.2 Output Total 0 0 0 Balance 4246.2 2723.2 0 Result Diagrams: 08/15/18 04:05 08/15/18 04:05 Phys Exam - Physical Examination Does not withdraw from painful stimuli HEENT: PERRLA, moist MMs, sclera anicteric Neck: no nodes, no JVD Respiratory: no wheezing, no rales scattered rhonchi Cardiovascular: RRR, no significant murmur, no rub Gastrointestinal: soft, non-tender, no distention, positive bowel sounds Musculoskeletal: edema present opens eyes spontaneously, does not withdraw from painful stimuli Skin: no rash Dx/Plan (1) Inguinal adenopathy Code(s): R59.0 - LOCALIZED ENLARGED LYMPH NODES Status: Acute (2) Acute on chronic respiratory failure with hypoxia Code(s): J96.21 - ACUTE AND CHRONIC RESPIRATORY FAILURE WITH HYPOXIA Status: Acute (3) Sepsis Code(s): A41.9 - SEPSIS, UNSPECIFIED ORGANISM Status: Ruled-out (4) Encephalopathy acute Code(s): G93.40 - ENCEPHALOPATHY, UNSPECIFIED Status: Acute (5) Transaminitis Code(s): R74.0 - NONSPEC ELEV OF LEVELS OF TRANSAMNS & LACTIC ACID DEHYDRGNSE Status: Acute (6) Diabetes mellitus with insulin therapy Code(s): E11.9 - TYPE 2 DIABETES MELLITUS WITHOUT COMPLICATIONS; Z79.4 - [employer] (CURRENT) USE OF INSULIN Status: Chronic (7) ESRD (end stage renal disease) Code(s): N18.6 - END STAGE RENAL DISEASE Status: Chronic - Plan Plan: 1) Inguinal adenopathy: - pt had bedside core biopsy done yesterday and those results are pending - given rapid expansion of lymph nodes compared to previous scan, increasing lactic acid, increasing procal and no response to broad spectrum abx suspect malignant source. Will consult heme onc for further recommendations. Likely lymphoma. Not a good candidate for chemotherapy per there note. - peripheral smear showed reactive changes, otherwise normal - overall prognosis is poor - cont current management and await biopsy results 2) SIRS -improving - cont broad spectrum abx 3) Encephalopathy: - off sedation - assess mentation and possible extubation after dialysis 4)Respiratory failure - 2/2 encephalopathy, cont ventilator support, possible extubate today 5) ESRD on dialysis: - cont daily dialysis 6) DMII - BS increasing will add prn mild SSI Dispo: Critical. Cont daily dialysis. Will await tissue results. Consult hospice /palliative for further recs and family support tomorrow. Addendum - Attending - Attending Attestation Date/Time: 08/15/18 2679 I personally evaluated the patient and discussed the management with Dr. Vincent I agree with the History, Examination, Assessment and Plan documented above with any addition or exceptions noted below.Patient improved with daily dialysis currently over breathing ventilator may be able to extubate once sedative wears off. Discussed continued poor overall prognosis with family and consideration of Hospice oysterman. Awaiting results from inguinal lymph core biopsy
--- NOTE | 2018-08-15 11:32 | PRG ---
DATE OF SERVICE: 08/15/2018 SUBJECTIVE: A 47-year-old gentleman being seen for end-stage renal disease. The patient is intubated. OBJECTIVE: CONSTITUTIONAL: The patient is resting. VITAL SIGNS: Afebrile, pulse 85, breathing 16, blood pressure 122/78. See above. Awake, alert, in no acute distress. GENERAL APPEARANCE AND MENTAL STATUS: Fair. HEAD/NECK: Normocephalic. Atraumatic. EYES: EOMI. No deformity. EARS: Clear. No ulcers. NOSE: Intact. No lesions. MOUTH: Clear. No discharge. THROAT: Clear. No exudate. LUNGS: Clear. No crackles. CARDIAC: S1, S2. No rub. ABDOMEN: Benign. Bowel sounds positive. GENITALIA/RECTUM: Choe absent. BACK/EXTREMITIES: Edema 0+. NEUROLOGICAL: Alert and motor intact. SKIN: LYMPHATICS: LABORATORY DATA: Labs reviewed. ASSESSMENT AND PLAN: 1. Stage 3 chronic kidney disease. Plan dialysis. 2. Hypertension, stable. 3. Anemia, stable. 4. Metabolic acidosis. Plan dialysis. 5. Sepsis management per primary team. 6. syndrome. Job ID: [id number]
[2018-08-15] MEDS: Norepinephrine 8 MG/0.9% NS 250 ML IVPB SCH (15:14)
[2018-08-15] MEDS: Micafungin 100 MG in Sodium Chloride 0.9% 100 ML IVPB SCH ×2 (17:43→20:07)
[2018-08-15] MEDS: Sodium Chloride 0.9% (PF) 10 ML VIAL FS PRN (20:08)
[2018-08-16 05:33] LABS: ALT (SGPT) 50 U/L (8-55); AST (SGOT) 203 U/L (5-34); Albumin 2.5 g/dL (3.5-5.0); Alkaline Phosphatase 114 U/L (40-150); Anion Gap 28 mmol/L (10-20); BUN (Urea Nitrogen) 37 mg/dL (8.9-20.6); Bilirubin, Total 5.4 mg/dL (0.2-1.2); Calc. Creatinine Clearance 37 mL/min (70-130); Calcium 6.7 mg/dL (7.8-10.44); Carbon Dioxide 15 mmol/L (22-29); Chloride 97 mmol/L (98-107); Estimated GFR-MDRD 14; Globulin 2.5 g/dL (2.4-3.5); Glucose 279 mg/dL (70-105); Potassium 4.2 mmol/L (3.5-5.1); Sodium 136 mmol/L (136-145)
[2018-08-16] MEDS: Vancomycin HCl 25 MG/ML Oral PO SCH ×3 (05:51→17:00)
[2018-08-16] MEDS: HumaLOG 300 UNITS/3 ML VIAL SC PRN ×4 (05:51→20:44)
[2018-08-16] MEDS: Hydrocortisone Sod Succ/PF 100 mg/2 ml Vial IVP SCH ×3 (05:51→17:00)
[2018-08-16 05:55] LABS: Anisocytosis MODERATE=16-30 cells (100X) (0-5/hpf); Band 10 % (5-11); Lymphocytes 6 % (21-51); MDiff Complete? YES; Mean Corpuscular HGB CONC 30.6 g/dL (32.0-36.0); Mean Corpuscular Hemoglobin 27.1 pg (27.0-31.0); Mean Corpuscular Volume 88.3 fL (78.0-98.0); Mean Platelet Volume 11.1 fL (7.4-10.4); Monocytes 2 % (0-10); Neutrophil 82 % (42-75); Nucleated RBC 1 % (0); Platelet Count 53 thou/uL (130-400); Platelet Morphology Comment Appears Decreased; RBC Distribution Width 22.3 % (11.5-14.5); Red Blood Cell (RBC) Count 2.96 mill/uL (4.70-6.10); Schistocytes SLIGHT = 2-5 cells (100X) (0-1/hpf); Spherocytes SLIGHT = 1-5 cells (100X) (None Seen); White Blood Cell (WBC) Count 8.3 thou/uL (4.8-10.8)
--- NOTE | 2018-08-16 08:04 | PDOC.FM ---
- Subjective Subjective: EMERITA overnight. Pts levophed gtt stopped, was hypotensive after and as such drip restarted. He will open eyes to verbal stimuli;however does no trach and does not follow commands. Continues not to withdraw form painful stimuli. - Objective Vital Signs & Weight: Vital Signs (12 hours) Temp Pulse Resp 08/16/18 07:36 90 08/16/18 07:00 97.9 F 08/16/18 06:00 31 H 08/16/18 04:00 97.3 F L 33 H 08/16/18 02:43 91 08/16/18 02:00 28 H 08/16/18 00:00 97.1 F L 27 H 08/15/18 22:14 88 08/15/18 22:00 27 H Weight Admit Weight 150.366 kg Weight 150.5 kg Most Recent Monitor Data Heart Rate from ECG 91 NIBP 71/43 NIBP BP-Mean 52 Respiration from ECG 29 SpO2 95 I&O: 08/15/18 08/16/18 08/17/18 06:59 06:59 06:59 Intake Total 2723.2 2533.7 Output Total 0 0 0 Balance 2723.2 2533.7 0 Result Diagrams: 08/16/18 04:35 08/16/18 04:35 Phys Exam - Physical Examination Constitutional: NAD HEENT: moist MMs ET tube in place Neck: no nodes, no JVD Respiratory: no wheezing, no rales scattered rhopnchi and rales Cardiovascular: RRR, no significant murmur, no rub Gastrointestinal: soft, non-tender, no distention, positive bowel sounds Musculoskeletal: pulses present, edema present b/l BKA does not withdraw from painful stimuli, opens eyes with verbal stimulation inguinal adenopathy Dx/Plan (1) Inguinal adenopathy Code(s): R59.0 - LOCALIZED ENLARGED LYMPH NODES Status: Acute (2) Acute on chronic respiratory failure with hypoxia Code(s): J96.21 - ACUTE AND CHRONIC RESPIRATORY FAILURE WITH HYPOXIA Status: Acute (3) Sepsis Code(s): A41.9 - SEPSIS, UNSPECIFIED ORGANISM Status: Ruled-out (4) Encephalopathy acute Code(s): G93.40 - ENCEPHALOPATHY, UNSPECIFIED Status: Acute (5) Transaminitis Code(s): R74.0 - NONSPEC ELEV OF LEVELS OF TRANSAMNS & LACTIC ACID DEHYDRGNSE Status: Acute (6) Diabetes mellitus with insulin therapy Code(s): E11.9 - TYPE 2 DIABETES MELLITUS WITHOUT COMPLICATIONS; Z79.4 - [employer] (CURRENT) USE OF INSULIN Status: Chronic (7) ESRD (end stage renal disease) Code(s): N18.6 - END STAGE RENAL DISEASE Status: Chronic - Plan Plan: 1) Inguinal adenopathy: - cont current management and await biopsy results - flow cytometry did not result in any pathologic findings 2) SIRS -improving - cont broad spectrum abx - this is likely related to increasing tumor burden and type 2 lactic acidosis 3) Encephalopathy: - off sedation - pt remains obtunded off sedation 4)Respiratory failure - 2/2 encephalopathy, cont ventilator support - manage per pulm recs - possible extubation; however, pts mentation continues not to improve and is unchanged 5) ESRD on dialysis: - cont daily dialysis - appreciate nephro recs 6) DMII - BS increasing will add prn mild SSI - hyperglycemia today, will add long acting if pt continues to require max mild SSI Dispo: Critical. Cont daily dialysis. Awaiting tissue results. Likely lymphoma, path review pending. Discuss case with palliative care. Addendum - Attending - Attending Attestation Date/Time: 08/16/18 4823 I personally evaluated the patient and discussed the management with Dr. Vincent. I agree with the History, Examination, Assessment and Plan documented above with any addition or exceptions noted below. The patient had to be restarted on levophed in addition to his vasopressin. He is having frequent bowel movements. Discussed rectal tube with nurse. Consulting palliative care. Still waiting on pathology but likely lymphoma diagnosis and pt isn't candidate for chemotherapy.
[2018-08-16] MEDS: Piperacillin/Tazobactam 2.25 GM in Sodium Chloride 0.9% 100 ML IVPB SCH ×2 (08:18→16:25)
[2018-08-16] MEDS: Sodium Chloride 0.9% (PF) 10 ML VIAL FS PRN ×2 (08:19→20:41)
[2018-08-16] MEDS: Folic Acid 1 MG TAB PO SCH (08:19)
[2018-08-16] MEDS: Linezolid 600 MG in Premix Bag 1 BAG IVPB SCH ×2 (08:19→20:41)
[2018-08-16] MEDS: Pantoprazole 40 MG VIAL IVP SCH ×2 (08:19→20:41)
[2018-08-16 10:29] LABS: Actual Bicarbonate (HCO3a) 13.6 mEq/L (22-28); Base Excess (BEa) -10.2 mEq/L (-2.0 to +3.0); Carboxyhemoglobin (COHb) 1.3 gm% (0.0-3.0); Hemoglobin (Hb) 9.2 g/dL (14.0-18.0); O2 Tension (PaO2) 73.4 mmHg (80.0-100.0); Potassium - ABG Lab 3.92 mmol/L (3.70-5.30); pH, Arterial 7.37 (7.35-7.45)
[2018-08-16 10:30] LABS: CO2 Tension 23.9 mmHg (35.0-45.0)
[2018-08-16 10:31] LABS: ALV-art Gradient 89.235 (0-20); Puncture Site RRA
[2018-08-16] MEDS: Epoetin (ESRD) 10,000 UNITS/ML VIAL IVP SCH (12:16)
--- NOTE | 2018-08-16 15:50 | PRG ---
DATE OF SERVICE: 08/16/2018 OBJECTIVE: VITAL SIGNS: Mr. Martinez is afebrile. Heart rate is in the 90s, blood pressure 125/62, respiratory rate is 30. LUNGS: Distant, clear. HEART: Regular rhythm. ABDOMEN: Soft. LABORATORY DATA: White count 8.3, hemoglobin 8.0, platelets 53,000. Sodium 136, potassium 4.2, chloride 97, bicarb 15, BUN 37, creatinine 5.25. PH of 7.37, CO2 of 23, pO2 of 73. IMPRESSION: Respiratory failure, most likely associated with a rapidly progressive malignancy with considerable tumor lysis and cell leading to pressor requirements and persistent metabolic acidosis on top of renal failure. We are still awaiting pathology. There are no acute critical care issues. His chances of surviving this are close to zero in my opinion. Consideration should be given towards withdrawing dialysis support once we have a tissue diagnosis. It is unlikely that there will be any therapeutic options. CRITICAL CARE TIME: 30 minutes. Job ID: [id number]
--- NOTE | 2018-08-16 16:47 | PRG ---
DATE OF SERVICE: 08/16/2018 SUBJECTIVE: The patient was seen and examined in ICU, intubated. OBJECTIVE: GENERAL: This is a morbidly obese male, intubated. VITAL SIGNS: Temperature 98.1, pulse 92, respiratory rate 30, blood pressure 120/62. HEENT: Intubated. CV: S1 and S2 heard. RESPIRATORY: Clear. GI: Abdomen is soft. MUSCULOSKELETAL: 1+ edema. DERMATOLOGIC: No skin rash. NEUROLOGIC: Not responsive. LABORATORY DATA: Potassium is 4.2, BUN is 37, creatinine is 5.25. ASSESSMENT AND PLAN: 1. End-stage renal disease. Continue on hemodialysis as tolerated. 2. Hypertension, stable. 3. Anemia. 4. Metabolic acidosis. 5. Altered mentation, not waking up. Prognosis is guarded. We will continue dialysis as tolerated. Job ID: [id number]
[2018-08-16] MEDS: Micafungin 100 MG in Sodium Chloride 0.9% 100 ML IVPB SCH (16:59)
[2018-08-16] MEDS: Insulin Glargine 10 UNITS in Pre-Filled Syringe 1 EACH SC SCH (20:41)
--- NOTE | 2018-08-16 22:05 | PRG ---
DATE OF SERVICE: 08/16/2018 SUBJECTIVE: Today, he was intubated in the ICU. His temperature appears to have normalized. OBJECTIVE: VITAL SIGNS: His BP 127/65, pulse 98, respirations 30 with 98% O2 sats. GENERAL: He is not sedated but is not responsive at this time. HEENT: Pupils are miotic. LUNGS: Symmetric. Coarse breath sounds. HEART: S1 and S2, regular rate. ABDOMEN: Distended. I's and O's have been positive for the past many days and he has zero urine output associated with his end-stage renal disease. LABORATORY RESULTS: His white cell count 8.3, hemoglobin 9.0, platelets 53,000, 82% neutrophils, and 10% bands. Chemistry with creatinine 5.25. Microbiology with pending lymph node core biopsy cultures. Repeat blood cultures, no growth in 5 days. The pathology from the surgical specimen revealed small focus of large atypical B-cells strongly suggest a large B-cell lymphoma. ASSESSMENT AND DISCUSSION: End-stage renal disease secondary to type 2 diabetes, hypertension, hypoxemia, pathologic lymphadenopathy with core biopsies suggestive of B-cell lymphoma. This is the most likely reason for the patient's repeated compensations and hospital admissions for the past few months. This has been a progressive enlarging lymph nodes in the pelvic area, probably elsewhere as well and the patient is not a candidate for chemotherapy and guarded to be poor prognosis, I believe the hospice care is being considered. Job ID: [id number]
[2018-08-17] MEDS: Piperacillin/Tazobactam 2.25 GM in Sodium Chloride 0.9% 100 ML IVPB SCH ×4 (01:37→23:55)
[2018-08-17] MEDS: Vancomycin HCl 25 MG/ML Oral PO SCH ×5 (01:38→23:55)
[2018-08-17] MEDS: Hydrocortisone Sod Succ/PF 100 mg/2 ml Vial IVP SCH ×5 (01:38→23:55)
[2018-08-17 05:00] LABS: ALT (SGPT) 49 U/L (8-55); AST (SGOT) 135 U/L (5-34); Albumin 2.4 g/dL (3.5-5.0); Alkaline Phosphatase 126 U/L (40-150); Anion Gap 22 mmol/L (10-20); BUN (Urea Nitrogen) 58 mg/dL (8.9-20.6); Bilirubin, Total 5.7 mg/dL (0.2-1.2); Calc. Creatinine Clearance 31 mL/min (70-130); Calcium 6.3 mg/dL (7.8-10.44); Carbon Dioxide 20 mmol/L (22-29); Chloride 98 mmol/L (98-107); Estimated GFR-MDRD 12; Globulin 2.3 g/dL (2.4-3.5); Glucose 411 mg/dL (70-105); Potassium 3.5 mmol/L (3.5-5.1); Protein, Total 4.7 g/dL (6.0-8.3); Sodium 136 mmol/L (136-145)
[2018-08-17] MEDS: HumaLOG 300 UNITS/3 ML VIAL SC PRN (05:26)
[2018-08-17 06:30] LABS: Anisocytosis MODERATE=16-30 cells (100X) (0-5/hpf); Band 6 % (5-11); Hemoglobin 8.1 g/dL (14.0-18.0); Lymphocytes 5 % (21-51); MDiff Complete? YES; Mean Corpuscular HGB CONC 32.4 g/dL (32.0-36.0); Mean Corpuscular Hemoglobin 28.5 pg (27.0-31.0); Monocytes 4 % (0-10); Neutrophil 85 % (42-75); Nucleated RBC 2 % (0); Platelet Count 30 thou/uL (130-400); Platelet Morphology Comment Appears Decreased; RBC Distribution Width 21.8 % (11.5-14.5); Red Blood Cell (RBC) Count 2.82 mill/uL (4.70-6.10); Spherocytes SLIGHT = 1-5 cells (100X) (None Seen)
[2018-08-17] MEDS ORDERED: Dextrose 5% in Water 1,000 ML IV PRN (06:50)
[2018-08-17 07:00] LABS: CO2 Tension 24.5 mmHg (35.0-45.0); pH, Arterial 7.48 (7.35-7.45)
[2018-08-17 07:01] LABS: Actual Bicarbonate (HCO3a) 17.6 mEq/L (22-28); Hemoglobin (Hb) 8.4 g/dL (14.0-18.0); O2 Tension (PaO2) 77.4 mmHg (80.0-100.0); Potassium - ABG Lab 3.33 mmol/L (3.70-5.30)
[2018-08-17 07:02] LABS: ALV-art Gradient 70.225 (0-20); Calcium, Ionized 0.85 mmol/L (1.12-1.30); Puncture Site RRA
[2018-08-17] MEDS: Folic Acid 1 MG TAB PO SCH (07:58)
[2018-08-17] MEDS: Pantoprazole 40 MG VIAL IVP SCH ×2 (07:59→21:23)
[2018-08-17] MEDS: Linezolid 600 MG in Premix Bag 1 BAG IVPB SCH ×2 (08:08→21:24)
--- NOTE | 2018-08-17 08:30 | RAD ---
SINGLE VIEW OF THE CHEST: COMPARISON: 08/10/2018. HISTORY: Respiratory failure. Ventilated patient. FINDINGS: A single view of the chest shows a normal-size cardiomediastinal silhouette. An endotracheal tube is seen with its tip between the clavicles. An NG Tube courses off the inferior aspect of the film. T he patient has a right-sided PICC line. There is no evidence of consolidation, mass, or pleural effu mk. IMPRESSION: Appropriate position of lines and tubes. POS: PAOLA
[2018-08-17] MEDS: Insulin Glargine 25 UNITS in Pre-Filled Syringe 1 EACH SC SCH (08:42)
--- NOTE | 2018-08-17 09:19 | PDOC.EVN ---
Event Note - Event Note Event Note: Spoke with pts sister over the phone and informed of tissue diagnosis. Family will be around this afternoon to discuss GOC.
--- NOTE | 2018-08-17 09:21 | PDOC.FM ---
- Subjective Subjective: EMERITA overnight. Pt lymph node biopsy resulted as probalb e B cell lymphoma. I have discussed findings with pts sister and she reports family will be here later today to discuss goals of care. - Objective Vital Signs & Weight: Vital Signs (12 hours) Temp Pulse Resp BP Pulse Ox 08/17/18 07:42 98 08/17/18 07:00 99.0 F 08/17/18 06:42 100 104/68 08/17/18 06:00 29 H 08/17/18 04:00 98.8 F 22 H 08/17/18 02:00 29 H 08/17/18 01:49 100 112/55 L 08/17/18 00:00 98.7 F 29 H 08/16/18 22:04 100 108/64 08/16/18 22:00 31 H Weight Admit Weight 150.366 kg Weight 151.2 kg Most Recent Monitor Data Heart Rate from ECG 99 NIBP 115/63 NIBP BP-Mean 80 Respiration from ECG 25 SpO2 96 I&O: 08/16/18 08/17/18 08/18/18 06:59 06:59 06:59 Intake Total 2533.7 1769.3 Output Total 0 1100 0 Balance 2533.7 669.3 0 Result Diagrams: 08/17/18 04:20 08/17/18 04:20 Phys Exam - Physical Examination Constitutional: NAD HEENT: moist MMs, sclera anicteric opens spontaenously, does not track Neck: no nodes, no JVD Respiratory: no wheezing scattered rales and rhonchi Cardiovascular: RRR, no significant murmur, no rub Gastrointestinal: soft, non-tender, no distention, positive bowel sounds Musculoskeletal: no edema Does not withdraw from painful stimuli, opens eyes spontaneously Skin: no rash, cap refill <2 seconds Dx/Plan (1) Inguinal adenopathy Code(s): R59.0 - LOCALIZED ENLARGED LYMPH NODES Status: Acute (2) Acute on chronic respiratory failure with hypoxia Code(s): J96.21 - ACUTE AND CHRONIC RESPIRATORY FAILURE WITH HYPOXIA Status: Acute (3) Sepsis Code(s): A41.9 - SEPSIS, UNSPECIFIED ORGANISM Status: Ruled-out (4) Encephalopathy acute Code(s): G93.40 - ENCEPHALOPATHY, UNSPECIFIED Status: Acute (5) Transaminitis Code(s): R74.0 - NONSPEC ELEV OF LEVELS OF TRANSAMNS & LACTIC ACID DEHYDRGNSE Status: Acute (6) Diabetes mellitus with insulin therapy Code(s): E11.9 - TYPE 2 DIABETES MELLITUS WITHOUT COMPLICATIONS; Z79.4 - SENIOR [employer] (CURRENT) USE OF INSULIN Status: Chronic (7) ESRD (end stage renal disease) Code(s): N18.6 - END STAGE RENAL DISEASE Status: Chronic - Plan Plan: 1) Inguinal adenopathy: - path results show B cell lymphoma -likely not a good candidate for chemotherapy, will discuss with onc and await recs 2) SIRS - cont broad spectrum abx - this is likely related to increasing tumor burden and type 2 lactic acidosis 3) Encephalopathy: - off sedation - pt remains obtunded off sedation - likley related to his malignancy and secondary lactic acidosis 4) Respiratory failure - 2/2 encephalopathy, cont ventilator support - manage per pulm recs - discuss goals of care with family today - await there decision and appreciate palliative assistance 5) ESRD on dialysis: - cont daily dialysis - appreciate nephro recs 6) DMII - BS increasing will add prn mild SSI - hyperglycemia today, will add long acting if pt continues to require max mild SSI Dispo: Poor. Will discuss goals of care with family. Palliative is following. Addendum - Attending - Attending Attestation Date/Time: 08/17/18 9344 I personally evaluated the patient and discussed the management with Dr. Vincent. I agree with the History, Examination, Assessment and Plan documented above with any addition or exceptions noted below. The patient is off pressors. His pathology came back as probably b-cell lymphoma and pt is not candidate for treatment. Dr. Vincent has spoken with family who is coming this afternoon to discuss goals of care.
[2018-08-17] MEDS: Insulin Regular 300 UNITS/3 ML VIAL SC PRN ×3 (10:01→22:54)
--- NOTE | 2018-08-17 16:39 | PRG ---
DATE OF SERVICE: 08/17/2018 SUBJECTIVE: Josias Martinez remains mechanically ventilated. I met with another sister. OBJECTIVE: VITAL SIGNS: He is afebrile. Heart rate is 108, blood pressure 140/82, respiratory rates in the 20s. LUNGS: Unchanged. HEART: Unchanged. ABDOMEN: Unchanged. LABORATORY DATA: White count 7.0, hemoglobin 8.1, platelets 30,000. Sodium 136, potassium 3.5, chloride 98, bicarb 20, BUN 58, creatinine 6.29. PH 7.48, CO2 of 24, PO2 77. IMPRESSION: Respiratory failure secondary to rapidly progressive, aggressive lymphoma with encephalopathy associated with that. There are no therapeutic options in my opinion. I have asked family to consider either withdrawal of dialysis or complete withdrawal of support with comfort care. Job ID: [id number]
[2018-08-17] MEDS: Micafungin 100 MG in Sodium Chloride 0.9% 100 ML IVPB SCH (17:30)
--- NOTE | 2018-08-17 17:31 | PRG ---
DATE OF SERVICE: 08/17/2018 SUBJECTIVE: Patient was seen and examined in ICU, remains intubated, but not responding. OBJECTIVE: GENERAL: Morbidly obese, male, seen in ICU, and intubated. VITAL SIGNS: Temperature 97.1. Pulse 106. Respiratory rate 23. Blood pressure 108/72. HEENT: Intubated. CARDIOVASCULAR: S1 and S2 heard. RESPIRATORY: Clear. ABDOMEN: Obese. MUSCULOSKELETAL: +1 edema. DERMATOLOGIC: No skin rash. NEUROLOGIC: Nonresponsive. LABORATORY DATA: Potassium is 3.5, BUN is 58, creatinine is 6.29. ASSESSMENT AND PLAN: 1. End-stage renal disease, on hemodialysis. Continue dialysis as tolerated. Plan is to have dialysis today if tolerated. 2. Hypertension, stable. 3. Anemia. 4. Altered mentation. 5. Lymphoma with poor prognosis. 6. Prognosis is guarded. Family discussion ongoing. We will have dialysis as tolerated and family wishes to continue, so we will follow. Job ID: [id number]
[2018-08-17] MEDS: Insulin Glargine 10 UNITS in Pre-Filled Syringe 1 EACH SC SCH (21:28)
[2018-08-18 05:26] LABS: Platelet Count 22 thou/uL (130-400)
[2018-08-18 05:36] LABS: ALT (SGPT) 58 U/L (8-55); AST (SGOT) 148 U/L (5-34); Albumin 2.4 g/dL (3.5-5.0); Alkaline Phosphatase 183 U/L (40-150); Anion Gap 19 mmol/L (10-20); BUN (Urea Nitrogen) 46 mg/dL (8.9-20.6); Bilirubin, Total 6.5 mg/dL (0.2-1.2); Calc. Creatinine Clearance 42 mL/min (70-130); Calcium 6.5 mg/dL (7.8-10.44); Carbon Dioxide 23 mmol/L (22-29); Chloride 97 mmol/L (98-107); Estimated GFR-MDRD 17; Globulin 2.5 g/dL (2.4-3.5); Glucose 248 mg/dL (70-105); Protein, Total 4.9 g/dL (6.0-8.3); Sodium 136 mmol/L (136-145)
[2018-08-18] MEDS: Vancomycin HCl 25 MG/ML Oral PO SCH (06:00)
[2018-08-18 06:01] LABS: Anisocytosis MODERATE=16-30 cells (100X) (0-5/hpf); Band 14 % (5-11); Hemoglobin 8.1 g/dL (14.0-18.0); Lymphocytes 5 % (21-51); MDiff Complete? YES; Mean Corpuscular HGB CONC 33.4 g/dL (32.0-36.0); Mean Corpuscular Hemoglobin 29.4 pg (27.0-31.0); Mean Corpuscular Volume 87.9 fL (78.0-98.0); Mean Platelet Volume 16.3 fL (7.4-10.4); Microcytosis SLIGHT = 6-15 cells (100X) (0-5/hpf); Monocytes 11 % (0-10); Neutrophil 70 % (42-75); Platelet Morphology Comment Appears Decreased; RBC Distribution Width 21.6 % (11.5-14.5); Red Blood Cell (RBC) Count 2.74 mill/uL (4.70-6.10); White Blood Cell (WBC) Count 6.3 thou/uL (4.8-10.8)
[2018-08-18] MEDS: Hydrocortisone Sod Succ/PF 100 mg/2 ml Vial IVP SCH ×4 (06:04→23:51)
[2018-08-18] MEDS: Insulin Regular 300 UNITS/3 ML VIAL SC PRN ×3 (06:07→23:51)
[2018-08-18] MEDS: Pantoprazole 40 MG VIAL IVP SCH ×2 (08:34→21:02)
[2018-08-18] MEDS: Insulin Glargine 25 UNITS in Pre-Filled Syringe 1 EACH SC SCH (08:34)
[2018-08-18] MEDS: Folic Acid 1 MG TAB PO SCH (08:34)
[2018-08-18] MEDS: Epoetin (ESRD) 10,000 UNITS/ML VIAL IVP SCH (09:36)
[2018-08-18] MEDS ORDERED: Heparin 10,000 UNITS/ 10 ML VIAL ONE (10:06)
--- NOTE | 2018-08-18 11:17 | PRG ---
DATE OF SERVICE: 08/18/2018 SUBJECTIVE: Patient was seen and examined in ICU, intubated, and not responding and overnight events noted. Patient denies any shortness of breath or chest pain or palpitation. No history of nausea or vomiting or diarrhea or fever or chills or cramps. OBJECTIVE: GENERAL: This is a morbidly obese, male, intubated, seen in ICU. VITAL SIGNS: Temperature 100.4. Heart rate 106. Respiratory rate 27. Blood pressure 86/52. HEENT: Intubated. CARDIOVASCULAR: S1 and S2 heard. RESPIRATORY: Coarse breath sounds. GASTROINTESTINAL: Abdomen is soft. MUSCULOSKELETAL: +1 edema. DERMATOLOGIC: No skin rash. NEUROLOGIC: Nonresponsive. LABORATORY DATA: Potassium is 3.0, BUN is 46, and creatinine is 4.5 ASSESSMENT AND PLAN: 1. End-stage renal disease. No acute indications for dialysis. The patient is a poor candidate for dialysis. 2. Hypokalemia. 3. Altered mentation. 4. Acute hypoxic respiratory failure. 5. Edema. 6. Hypertension. 7. Poor prognosis. 8. Family is planning to have extubation tomorrow. We will follow. Prognosis is guarded. Job ID: [id number]
--- NOTE | 2018-08-18 11:22 | PDOC.FM ---
- Subjective Subjective: No change overnight. Discussed with family yesterday goals of care. They plan to terminally extubate and DC dialysis once all family members have a chance to see pt. He remains unresponsive to painful stimuli. - Objective Vital Signs & Weight: Vital Signs (12 hours) Temp Pulse Resp BP Pulse Ox 08/18/18 10:52 114 H 86/52 L 08/18/18 07:53 105 H 102/74 08/18/18 07:46 17 100 08/18/18 06:00 24 H 08/18/18 04:00 100.4 F H 22 H 08/18/18 02:04 102 H 102/87 08/18/18 02:00 21 H 08/18/18 00:00 100.0 F H 26 H Weight Admit Weight 150.366 kg Weight 149.8 kg Most Recent Monitor Data Heart Rate from ECG 106 NIBP 86/52 NIBP BP-Mean 63 Respiration from ECG 27 SpO2 92 I&O: 08/17/18 08/18/18 08/19/18 06:59 06:59 06:59 Intake Total 1769.3 2107 0 Output Total 1100 500 0 Balance 669.3 1607 0 Result Diagrams: 08/18/18 04:40 08/18/18 04:40 Phys Exam - Physical Examination Intubated, off sedation HEENT: moist MMs, sclera anicteric Neck: no JVD Respiratory: no wheezing scattered rales and rhonchi Cardiovascular: RRR, no significant murmur, no rub Gastrointestinal: soft, non-tender, no distention, positive bowel sounds Musculoskeletal: edema present does not withdraw from painful stimuli, opens eyes spontaneously Dx/Plan (1) Inguinal adenopathy Code(s): R59.0 - LOCALIZED ENLARGED LYMPH NODES Status: Acute (2) Acute on chronic respiratory failure with hypoxia Code(s): J96.21 - ACUTE AND CHRONIC RESPIRATORY FAILURE WITH HYPOXIA Status: Acute (3) Encephalopathy acute Code(s): G93.40 - ENCEPHALOPATHY, UNSPECIFIED Status: Acute (4) Transaminitis Code(s): R74.0 - NONSPEC ELEV OF LEVELS OF TRANSAMNS & LACTIC ACID DEHYDRGNSE Status: Acute (5) Diabetes mellitus with insulin therapy Code(s): E11.9 - TYPE 2 DIABETES MELLITUS WITHOUT COMPLICATIONS; Z79.4 - [employer] (CURRENT) USE OF INSULIN Status: Chronic (6) ESRD (end stage renal disease) Code(s): N18.6 - END STAGE RENAL DISEASE Status: Chronic - Plan Plan: Inguinal adenopathy: - path results show B cell lymphoma -not a candidate for chemotherapy - plan for terminal extubation on Encephalopathy: Respiratory failure ESRD on dialysis: Dispo: Grim. Plan for terminal extubation on per family request. I have DC'd all antibiotic medications as pt has become pancytopenic and infectious etiology less likely. Plan for supportive care until tomorrow. Palliative following, IP hospice referral placed. Addendum - Attending - Attending Attestation Date/Time: 08/18/18 8869 I personally evaluated the patient and discussed the management with Dr. Vincent. I agree with the History, Examination, Assessment and Plan documented above with any addition or exceptions noted below. thrombocytopenia continues to worsen. Family is coming in and per report likely plans to terminally extubate tomorrow. Stopping antibiotics today.
[2018-08-18 13:00] VITALS: BMI 46.0
--- NOTE | 2018-08-18 19:00 | PRG ---
DATE OF SERVICE: 08/18/2018 SUBJECTIVE: Josias Martinez' family has relayed to the nurses, they want to withdraw care tomorrow. There are no acute care issues. He did open his eyes briefly for his sister when I was in the room. OBJECTIVE: VITAL SIGNS: Afebrile, heart rate is 101, blood pressure 97/61, respiratory rate 30. LUNGS: Remarkable for rhonchi bilaterally. HEART: Regular rhythm. S1 and S2 are normal. ABDOMEN: Soft, distended. EXTREMITIES: His stumps are still with edema, but no asymmetry. Intake and output is -735, so far today -1607 coming into this morning. down to 22,000. IMPRESSION: Large B-cell lymphoma which is behaving as a very aggressive tumor. There are no good therapeutic options for him, the family is contemplating withdrawal of care. There is no reason to continue drawing blood on him every day. As I have explained to the sister, hopefully, all family members who want to come see him, will come see him tonight before care is withdrawn. Job ID: [id number]
[2018-08-18] MEDS: Insulin Glargine 10 UNITS in Pre-Filled Syringe 1 EACH SC SCH (21:02)
[2018-08-19] MEDS: Insulin Regular 300 UNITS/3 ML VIAL SC PRN (04:27)
[2018-08-19] MEDS: Hydrocortisone Sod Succ/PF 100 mg/2 ml Vial IVP SCH (06:07)
--- NOTE | 2018-08-19 08:28 | PDOC.FM ---
- Subjective Subjective: EMERITA overnight. DC'd all antimicrobial medications. Pt to be extubated today per families wishes. - Objective Vital Signs & Weight: Vital Signs (12 hours) Temp Pulse Resp BP Pulse Ox 08/19/18 07:41 117 H 117/70 08/19/18 07:27 97 08/19/18 06:00 34 H 08/19/18 04:00 100.8 F H 36 H 08/19/18 02:00 33 H 08/19/18 01:58 111 H 127/72 08/19/18 00:00 99.0 F 32 H 08/18/18 22:05 115 H 125/73 08/18/18 22:00 22 H Weight Admit Weight 150.366 kg Weight 151.6 kg Most Recent Monitor Data Heart Rate from ECG 108 NIBP 117/70 NIBP BP-Mean 85 Respiration from ECG 27 SpO2 97 I&O: 08/18/18 08/19/18 08/20/18 06:59 06:59 06:59 Intake Total 2107 1008 Output Total 500 1421 0 Balance 1607 -413 0 Result Diagrams: 08/18/18 04:40 08/18/18 04:40 Phys Exam - Physical Examination ET tube in place scattered rales and rhonchi Cardiovascular: RRR, no significant murmur, no rub Gastrointestinal: soft, non-tender, no distention, positive bowel sounds Musculoskeletal: pulses present, edema present opens eyes spontaneously, does not withdraw from painful stimuli Skin: no rash Dx/Plan (1) Inguinal adenopathy Code(s): R59.0 - LOCALIZED ENLARGED LYMPH NODES Status: Acute (2) Acute on chronic respiratory failure with hypoxia Code(s): J96.21 - ACUTE AND CHRONIC RESPIRATORY FAILURE WITH HYPOXIA Status: Acute (3) Encephalopathy acute Code(s): G93.40 - ENCEPHALOPATHY, UNSPECIFIED Status: Acute (4) Transaminitis Code(s): R74.0 - NONSPEC ELEV OF LEVELS OF TRANSAMNS & LACTIC ACID DEHYDRGNSE Status: Acute (5) Diabetes mellitus with insulin therapy Code(s): E11.9 - TYPE 2 DIABETES MELLITUS WITHOUT COMPLICATIONS; Z79.4 - [employer] (CURRENT) USE OF INSULIN Status: Chronic (6) ESRD (end stage renal disease) Code(s): N18.6 - END STAGE RENAL DISEASE Status: Chronic - Plan Plan: Inguinal adenopathy: - path results show B cell lymphoma -not a candidate for chemotherapy - plan for terminal extubation today per families wishes Encephalopathy: - no change. - will terminally extubate today Respiratory failure ESRD on dialysis: - DC dialysis - terminal extubation today Dispo: Pt will be extubated today and will pursue comfort measures. Addendum - Attending - Attending Attestation Date/Time: 08/19/18 1031 I personally evaluated the patient and discussed the management with Dr. Vincent. I agree with the History, Examination, Assessment and Plan documented above with any addition or exceptions noted below. The patient remains intubated. Most meds are being stopped. Plan for terminal extubation this afternoon when family is present.
[2018-08-19] MEDS ORDERED: Morphine 4 MG/ML VIAL SLOW IVP PRN (08:40)
[2018-08-19] MEDS: Folic Acid 1 MG TAB PO SCH (08:47)
--- NOTE | 2018-08-19 10:34 | PRG ---
DATE OF SERVICE: 08/19/2018 SUBJECTIVE: Josias Martinez' family apparently wants to withdraw care. There are probably more than 10 siblings. They are coming in this afternoon. OBJECTIVE: VITAL SIGNS: He has low-grade temperature elevation, heart rate 108, blood pressure 129/78. LUNGS: Unchanged. HEART: Unchanged. ABDOMEN: Unchanged. LABORATORY DATA: There is no new lab. IMPRESSION: Aggressive large B-cell lymphoma. PLAN: Family wants to withdraw care. Orders were placed to extubate the patient and family is ready and a p.r.n. for morphine has been placed. If he survives, he could go to inpatient hospice. I am not sure he will survive more than 15 to 30 minutes. He remains significantly encephalopathic. I would suspect that he has central nervous system involvement of his lymphoma. Job ID: [id number]
--- NOTE | 2018-08-19 11:02 | PRG ---
DATE OF SERVICE: 08/19/2018 SUBJECTIVE: The patient was seen and examined in ICU. Remains nonresponsive and intubated. Plan for family is to compassionate extubation today. OBJECTIVE: GENERAL: He is a morbidly obese male, seen in ICU, intubated. VITAL SIGNS: Temperature 100.5, pulse 108, respiratory rate 28, blood pressure 129/78. CVS: S1 and S2 heard. RESPIRATORY: Clear. GI: Abdomen is obese. MUSCULOSKELETAL: 1+ edema. DERMATOLOGIC: No skin rash. NEUROLOGIC: Intubated and nonresponsiveness. LABORATORY DATA: Not done today. ASSESSMENT AND PLAN: 1. End-stage renal disease. Poor prognosis. Family does not want to continue dialysis. Plan to have compassionate extubation. 2. Hypokalemia. 3. Altered mentation. 4. Acute hypoxic respiratory failure, intubated. 5. Edema. 6. Hypertension. 7. Lymphoma. 8. Overall poor prognosis. Job ID: [id number]
[2018-08-19] MEDS ORDERED: Lorazepam 2 MG/ML VIAL SLOW IVP PRN (14:12)
[2018-08-19 14:19] VITALS: BP 118/77
[2018-08-19 14:22] VITALS: TEMP 100.3
== END 2018-08-19 17:51 | disposition hospice, inpatient (51) | DRG 870 ==
LOC: ERS 10:44 → 2SE 15:08 → UNDOADMIN 15:08 → UNDODISIN 18:35 → 2SE 19:36 → IMCU/EMU 08-10 10:24 → CCU 08-10 15:07
PROVIDERS: ADMIT Family Medicine; ATTEND Family Medicine
PROC: 06HM33Z Insertion of Infusion Device into Right Femoral Vein, Percutaneous Approach (ICD-10-PCS; 2018-08-10)
PROC: 5A1955Z Respiratory Ventilation, Greater than 96 Consecutive Hours (ICD-10-PCS; 2018-08-10)
PROC: 0BH17EZ Insertion of Endotracheal Airway into Trachea, Via Natural or Artificial Opening (ICD-10-PCS; 2018-08-10)
PROC: 3E033XZ Introduction of Vasopressor into Peripheral Vein, Percutaneous Approach (ICD-10-PCS; 2018-08-10)
PROC: 07DH3ZX Extraction of Right Inguinal Lymphatic, Percutaneous Approach, Diagnostic (ICD-10-PCS; 2018-08-12)
PROC: 30233N1 Transfusion of Nonautologous Red Blood Cells into Peripheral Vein, Percutaneous Approach (ICD-10-PCS; 2018-08-12)
PROC: 02HV33Z Insertion of Infusion Device into Superior Vena Cava, Percutaneous Approach (ICD-10-PCS; principal; 2018-08-13)
PROC: 5A1D70Z Performance of Urinary Filtration, Intermittent, Less than 6 Hours Per Day (ICD-10-PCS; 2018-08-17)
DX: A41.81 Sepsis due to Enterococcus (principal); N18.6 End stage renal disease; J96.21 Acute and chronic respiratory failure with hypoxia; K72.00 Acute and subacute hepatic failure without coma; R65.21 Severe sepsis with septic shock; E88.3 Tumor lysis syndrome; I12.0 Hypertensive chronic kidney disease with stage 5 chronic kidney disease or end stage renal disease; E66.2 Morbid (severe) obesity with alveolar hypoventilation; Z68.42 Body mass index [BMI] 45.0-49.9, adult; G93.40 Encephalopathy, unspecified; E87.2 Acidosis; A04.72 Enterocolitis due to Clostridium difficile, not specified as recurrent; C83.30 Diffuse large B-cell lymphoma, unspecified site; Z99.2 Dependence on renal dialysis; E11.22 Type 2 diabetes mellitus with diabetic chronic kidney disease; R59.0 Localized enlarged lymph nodes; D63.1 Anemia in chronic kidney disease; L89.302 Pressure ulcer of unspecified buttock, stage 2; E11.51 Type 2 diabetes mellitus with diabetic peripheral angiopathy without gangrene; Z66 Do not resuscitate; Z51.5 Encounter for palliative care; L89.152 Pressure ulcer of sacral region, stage 2; D69.6 Thrombocytopenia, unspecified; K21.9 Gastro-esophageal reflux disease without esophagitis; E78.5 Hyperlipidemia, unspecified; Z22.39 Carrier of other specified bacterial diseases; E55.9 Vitamin D deficiency, unspecified; Z16.21 Resistance to vancomycin; R74.0 Nonspecific elevation of levels of transaminase and lactic acid dehydrogenase [LDH]; K52.9 Noninfective gastroenteritis and colitis, unspecified; Z91.14 Patient's other noncompliance with medication regimen; Z89.512 Acquired absence of left leg below knee; Z89.511 Acquired absence of right leg below knee; Z79.4 Long term (current) use of insulin
CPT/HCPCS: 36415; 36416; 36430; 36569; 51701; 70450; 71045; 74177; 76705; 80048; 80053; 80061; 80076; 80202; 80307; 81003; 81015; 82140; 82248; 82274; 82533; 82550; 82553; 82805; 82977; 83516; 83520; 83605; 83615; 83690; 83880; 84100; 84145; 84443; 84484; 84550; 85025; 85060; 85610; 85730; 86038; 86225; 86256; 86704; 86709; 86803; 86850; 86880; 86900; 86901; 87040; 87045; 87046; 87070; 87077; 87086; 87116; 87149; 87186; 87205; 87206; 87324; 87340; 87389; 87449; 87493; 87804; 87899; 88184; 88307; 88312; 88341; 88342; 90935; 93005; 93306; 94002; 94003; 94799; 96365; 96367; C1751; C1752; C9113; G0257; J0131; J1642; J1644; J1720; J1815; J1825; J1956; J2001; J2020; J2060; J2248; J2250; J2270; J2543; J2704; J3010; J3370; J7050; J7120; P9016; P9047; Q4081; Q9966

== ENCOUNTER 2018-08-19 18:18 | Inpatient (IN) | payer OTHER ==
[2018-08-19] MEDS: Morphine 4 MG/ML VIAL SLOW IVP PRN ×3 (19:34→22:23)
[2018-08-19] MEDS: Lorazepam 2 MG/ML VIAL SLOW IVP PRN (20:47)
[2018-08-20] MEDS: Morphine 4 MG/ML VIAL SLOW IVP PRN ×7 (00:10→10:38)
[2018-08-20] MEDS: Lorazepam 2 MG/ML VIAL SLOW IVP PRN ×2 (05:02→09:02)
[2018-08-20 07:58] VITALS: BP 86/56; TEMP 99.7
--- NOTE | 2018-08-23 08:27 | PRG ---
DATE OF SERVICE: 08/20/2018 SUBJECTIVE: The patient was seen and examined in the room. OBJECTIVE: GENERAL: This is an obese man . VITAL SIGNS: Temperature 99.7. Pulse 91. Respiratory rate 26. Blood pressure 86/56. HEENT: Atraumatic, normocephalic. Oral mucosa is moist NECK: Supple. CARDIOVASCULAR: S1, S2 heard. Rate and rhythm regular. RESPIRATORY: Clear to auscultation. GASTROINTESTINAL: Abdomen is soft. MUSCULOSKELETAL: No tenderness. No edema. DERMATOLOGIC: No skin rash. NEUROLOGIC: . PSYCHIATRIC: Mood and affect normal. LABORATORY DATA: Not done. ASSESSMENT AND PLAN: 1. End-stage renal disease. Family wishes to have no further dialysis. 2. Edema. 3. . 4. Morbid obesity. 5. Lymphoma. 6. Patient under hospice care. Family is supportive and . Job ID: [id number]
--- NOTE | 2018-08-25 14:53 | DIS ---
DATE OF ADMISSION: 08/19/2018 DATE OF DISCHARGE: 08/20/2018 TIME OF : 08/20/2018 at 11:02 a.m. HISTORY OF PRESENT ILLNESS: The patient is a 47-year-old gentleman, who was admitted to palliative care services after multiorgan failure and history of end-stage renal disease with encephalopathy as well as diffuse large B-cell lymphoma. The patient had poor prognosis and hospice was initiated. Date and time of were reported. Family was present. No complications were reported. Job ID: [id number]
== END 2018-08-20 15:08 | disposition expired | DRG 951 ==
LOC: SURG A 18:18
PROVIDERS: ADMIT Internal Medicine Nephrology; ATTEND Internal Medicine Nephrology
DX: Z51.5 Encounter for palliative care (principal); N18.6 End stage renal disease; J96.21 Acute and chronic respiratory failure with hypoxia; A41.9 Sepsis, unspecified organism; C85.90 Non-Hodgkin lymphoma, unspecified, unspecified site; G93.40 Encephalopathy, unspecified; I12.0 Hypertensive chronic kidney disease with stage 5 chronic kidney disease or end stage renal disease; L89.302 Pressure ulcer of unspecified buttock, stage 2; Z66 Do not resuscitate; R74.0 Nonspecific elevation of levels of transaminase and lactic acid dehydrogenase [LDH]; E11.22 Type 2 diabetes mellitus with diabetic chronic kidney disease; D63.1 Anemia in chronic kidney disease; G47.33 Obstructive sleep apnea (adult) (pediatric); D69.6 Thrombocytopenia, unspecified; R19.7 Diarrhea, unspecified; K21.9 Gastro-esophageal reflux disease without esophagitis; E55.9 Vitamin D deficiency, unspecified; I73.9 Peripheral vascular disease, unspecified; Z99.2 Dependence on renal dialysis; E66.01 Morbid (severe) obesity due to excess calories; E78.5 Hyperlipidemia, unspecified; Z80.3 Family history of malignant neoplasm of breast; Z80.41 Family history of malignant neoplasm of ovary; Z89.512 Acquired absence of left leg below knee; Z89.511 Acquired absence of right leg below knee
CPT/HCPCS: J2060; J2270